=== PATIENT | male | born 1955 | race Caucasian/White ===

== ENCOUNTER 2023-06-11 13:23 | Inpatient (IN) | payer MEDICARE, MEDICAID ==
[~2023-06-11] VITALS: Ht 172.7 cm; Wt 42.3 kg
[~2023-06-11 13:23] MED LIST: ALBU2TAB11 PO; CITA10TA5 PO
[2023-06-11 14:23] LABS: Basophils # (auto) 0.1 10 ^3/uL (0-0.2); Basophils % (auto) 0.6 % (0.0-2.0); Eosinophils # (auto) 0.2 10 ^3/uL (0-0.8); Hemoglobin 15.5 g/dL (13.5-17.5); Lymphocytes # (auto) 0.9 10 ^3/uL (0.4-5.4); Lymphocytes % (auto) 10.1 % (10.0-50.0); Mean Corpuscular Hemoglobin 30.7 pg (28.0-32.0); Monocytes # (auto) 0.6 10 ^3/uL (0-1.3); Monocytes % (auto) 6.7 % (0.0-12.0); Neutrophils # (auto) 7.1 10 ^3/uL (1.6-8.6); Neutrophils % (auto) 80.6 % (37.0-80.0); Red Blood Cells 5.05 10^6/uL (4.5-5.90); Red Cell Distribution Width 14.7 % (11.8-14.3); White Blood Cell 8.8 10^3/uL (4.4-10.8)
[2023-06-11 14:47] LABS: Alanine Aminotransferase 13 U/L (7-40); Albumin 4.2 g/dL (3.2-4.8); Alkaline Phosphatase 82 U/L (46-116); Anion Gap 6 (5-15); Aspartate Aminotransferase 24 U/L (13-40); BUN/Creatinine Ratio 22.1 (10.0-20.0); Bilirubin, Total 0.6 mg/dL (0.2-1.0); Blood Urea Nitrogen 17 mg/dL (9-23); Carbon Dioxide 27 mmol/L (20-30); Chloride 101 mmol/L (98-107); Glucose 123 mg/dL (74-106); Potassium 5.2 mmol/L (3.5-5.1); Sodium 134 mmol/L (136-145); Total Protein 6.9 g/dL (5.7-8.2)
[2023-06-11] MEDS: SODIUM ZIRCONIUM CYCL 10 GM PAK PO ONE (15:30)
[2023-06-11] MEDS: FUROSEMIDE 20 MG/2 ML VIAL IV ONE (15:30)
[2023-06-11] MEDS: CALCIUM GLUC 1,000mg/50ml-NS 50 ML IV ONE (15:30)
[2023-06-11] MEDS: SODIUM BICARB 8.4% 50Meq/50ml SYR INJ IV ONE (15:30)
[2023-06-11] MEDS: ALBUTEROL SULF 2.5 MG/0.5ML(0.5%) NEB SOLN NEB ONE ×2 (15:48→17:48)
[2023-06-11] MEDS: methylPREDNISolone SOD SUCC 125 MG/2 ML VL IV ONE (17:00)
[2023-06-11] MEDS: InsuLIN REG 1unit/0.01ml Soln (100units/ml) SC SCH (17:00)
[2023-06-11] MEDS: SODIUM CHLORIDE 0.9% 1,000 ML IV SCH (17:00)
[2023-06-11] MEDS ORDERED: MORPHINE SULFATE INJ 2 MG/ml SYRG IV PRN (17:00)
[2023-06-11] MEDS ORDERED: ONDANSETRON HCL 4 MG/2 ML VIAL IV PRN (17:00)
[2023-06-11] MEDS ORDERED: DEXTROSE (50%) 50ML SYRG IV PRN (17:00)
[2023-06-11] MEDS: ACCU-CHEK COMFORT CURVE STRIP VI SCH (17:00)
[2023-06-11] MEDS ORDERED: DOCUSATE SOD 100 MG CAP PO PRN (17:00)
[2023-06-11 17:40] LABS: Potassium 4.7 mmol/L (3.5-5.1)
[2023-06-11 17:46] LABS: INR 1.1 (0.9-1.15); Prothrombin Time 11.5 sec (9.3-11.8)
[2023-06-11 17:47] LABS: Magnesium 1.9 mg/dL (1.6-2.6)
[2023-06-11 17:47] LABS: Base Excess -1.5 mmol/L (-2.0-2.0)
[2023-06-11 17:48] LABS: Phosphorus 4.2 mg/dL (2.4-5.1)
[2023-06-11] MEDS: IPRATROPIUM BROM 0.5 MG/2.5ML INH SOL NEB ONE (17:48)
[2023-06-11] MEDS: IPRATROPIUM BROM 0.5 MG/2.5ML INH SOL NEB SCH (18:00)
[2023-06-11] MEDS: ALBUTEROL SULF 2.5 MG/0.5ML(0.5%) NEB SOLN NEB SCH (18:00)
[2023-06-11] MEDS: methylPREDNISolone SOD SUCC 125 MG/2 ML VL IV SCH (22:00)
[2023-06-11 22:16] LABS: COVID19 ANTIGEN SOFIA FIA NEGATIVE (NEGATIVE)
[2023-06-11 22:38] LABS: Rapid Influenza A Negative (Negative); Rapid Influenza B Negative (Negative)
[2023-06-11 22:44] VITALS: O2SAT 94
[2023-06-11 22:45] VITALS: PULSE 93; RESP 22; O2SAT 93; O2SAT 94
[2023-06-11] MEDS: ENOXAPARIN SOD 40 MG/0.4 ML SYRINGE SC SCH (22:48)
[2023-06-11 22:49] VITALS: PULSE 97; RESP 22; O2SAT 98
[2023-06-12] VITALS (21 sets, daily range): BP systolic 106–123; BP diastolic 56–70; PULSE 77–111; RESP 15–18; TEMP 97.8–98.5; O2SAT 93–100
[2023-06-12 06:48] LABS: Basophils # (auto) 0 10 ^3/uL (0-0.2); Basophils % (auto) 0.1 % (0.0-2.0); Eosinophils # (auto) 0 10 ^3/uL (0-0.8); Eosinophils % (auto) 0.1 % (0.0-7.0); Hematocrit 42.8 % (41.0-53.0); Hemoglobin 14.3 g/dL (13.5-17.5); Lymphocytes # (auto) 0.4 10 ^3/uL (0.4-5.4); Lymphocytes % (auto) 7.3 % (10.0-50.0); Mean Corpuscular Hemoglobin 30.8 pg (28.0-32.0); Mean Corpuscular Hgb Conc. 33.4 g/dL (32.0-36.0); Mean Corpuscular Volume 92.1 fL (80.0-100.0); Monocytes # (auto) 0.1 10 ^3/uL (0-1.3); Monocytes % (auto) 1.3 % (0.0-12.0); Neutrophils # (auto) 5.1 10 ^3/uL (1.6-8.6); Neutrophils % (auto) 91.2 % (37.0-80.0); Red Blood Cells 4.65 10^6/uL (4.5-5.90); Red Cell Distribution Width 14.4 % (11.8-14.3); White Blood Cell 5.6 10^3/uL (4.4-10.8)
[2023-06-12 07:38] LABS: Alkaline Phosphatase 74 U/L (46-116); BUN/Creatinine Ratio 12.5 (10.0-20.0); Blood Urea Nitrogen 10 mg/dL (9-23); Chloride 101 mmol/L (98-107); Glucose 164 mg/dL (74-106); Potassium 4.5 mmol/L (3.5-5.1); Sodium 135 mmol/L (136-145)
[2023-06-12 07:39] LABS: Albumin 3.9 g/dL (3.2-4.8); Aspartate Aminotransferase 15 U/L (13-40); Bilirubin, Total 0.5 mg/dL (0.2-1.0); Total Protein 6.5 g/dL (5.7-8.2)
[2023-06-12 07:53] LABS: Alanine Aminotransferase < 9 U/L (7-40)
[2023-06-12 08:08] LABS: Anion Gap 11 (5-15); Carbon Dioxide 23 mmol/L (20-30)
[2023-06-12] MEDS: PANTOPRAZOLE 40 MG/10 ML VIAL INJ IV SCH (09:21)
[2023-06-12] MEDS: ACETAMINOPHEN 500 MG TAB PO PRN (21:12)
[2023-06-13] VITALS (19 sets, daily range): BP systolic 101–127; BP diastolic 55–62; PULSE 72–108; RESP 16–20; TEMP 97.6–98.3; O2SAT 95–100
[2023-06-13] MEDS: cefTRIAXone 1GM/50ML D5W 50 ML IV ONE (13:06)
[2023-06-13] MEDS: AZITHROMYCIN 500MG/ 250ML 250 ML IV ONE (13:54)
[2023-06-13 14:44] LABS: Urine Bacteria NONE SEEN /hpf (None Seen); Urine Blood Negative /uL (Negative); Urine Clarity Clear (Clear); Urine Color Yellow (Yellow); Urine Mucus FEW (None Seen); Urine Protein, UAD TRACE (Negative); Urine Specific Gravity 1.028 (1.001-1.035); Urine Urobilinogen Normal (Negative); Urine WBC <1 /hpf (0 - 3); Urine pH 5.5 (5.0-8.0)
[2023-06-13 17:46] LABS: COVID19 ANTIGEN SOFIA FIA NEGATIVE (NEGATIVE)
[2023-06-14] VITALS (14 sets, daily range): BP systolic 105–113; BP diastolic 49–63; PULSE 66–95; RESP 16–20; TEMP 97.3–98.2; O2SAT 95–100
[2023-06-14] MEDS ORDERED: ALBUAER3 IN (10:15)
[2023-06-14] MEDS ORDERED: PRED20TA2 PO (10:15)
[2023-06-14] MEDS ORDERED: AZIT500T66 PO (10:15)
[2023-06-14] MEDS ORDERED: IPRIH INH (10:15)
[2023-06-14] MEDS: cefTRIAXone 1GM/50ML D5W 50 ML IV SCH (10:39)
[2023-06-14] MEDS: PANTOPRAZOLE 40 MG TAB PO SCH (10:40)
[2023-06-14] MEDS: AZITHROMYCIN 500MG/ 250ML 250 ML IV SCH (11:28)
== END 2023-06-14 19:09 | disposition home health service (06) | DRG 177 ==
LOC: EDBD 13:23 → ER 13:23 → TELE-EAST 17:08 → TELE 17:08 → TELE-EAST 23:35
PROVIDERS: ADMIT Nurse Practitioner Family; ATTEND Family Medicine
DX: J15.69 Pneumonia due to other Gram-negative bacteria (principal); E43 Unspecified severe protein-calorie malnutrition; J96.01 Acute respiratory failure with hypoxia; Z68.1 Body mass index [BMI] 19.9 or less, adult; J43.9 Emphysema, unspecified; E11.65 Type 2 diabetes mellitus with hyperglycemia; Z20.822 Contact with and (suspected) exposure to COVID-19; R62.7 Adult failure to thrive; E87.5 Hyperkalemia; F17.200 Nicotine dependence, unspecified, uncomplicated; Z82.0 Family history of epilepsy and other diseases of the nervous system; Z83.3 Family history of diabetes mellitus; Z82.49 Family history of ischemic heart disease and other diseases of the circulatory system
CPT/HCPCS: 36415; 36600; 71045; 80053; 81001; 82805; 82962; 83036; 83735; 83880; 84100; 84132; 84484; 85025; 85379; 85610; 87070; 87205; 87426; 87804; 93306; 94640; 96374; 96375; 97110; 97116; 97163; 97530; 99291; C9113; G0378; J1815

== ENCOUNTER 2023-06-14 22:09 | Inpatient (IN) | payer MEDICARE, MEDICAID ==
[~2023-06-14] VITALS: Ht 175.3 cm; Wt 42.4 kg
[~2023-06-14 22:09] MED LIST changes: +ALBUAER3 IN; +AZIT500T66 PO; +IPRIH INH; +PRED20TA2 PO
[2023-06-15] VITALS (8 sets, daily range): BP systolic 114–130; BP diastolic 65–70; PULSE 62–78; RESP 16–20; TEMP 97.5–97.8; O2SAT 94–98
[2023-06-15] MEDS ORDERED: NITROGLYCERIN 0.4 MG SL TAB SL PRN (11:15)
[2023-06-15] MEDS ORDERED: MORPHINE SULFATE INJ 2 MG/ml SYRG IV PRN (11:15)
[2023-06-15 11:53] LABS: Basophils # (auto) 0 10 ^3/uL (0-0.2); Basophils % (auto) 0.6 % (0.0-2.0); Eosinophils # (auto) 0.2 10 ^3/uL (0-0.8); Eosinophils % (auto) 2.1 % (0.0-7.0); Hematocrit 43.1 % (41.0-53.0); Hemoglobin 14.4 g/dL (13.5-17.5); Lymphocytes # (auto) 1.2 10 ^3/uL (0.4-5.4); Lymphocytes % (auto) 16.6 % (10.0-50.0); Mean Corpuscular Hemoglobin 30.7 pg (28.0-32.0); Mean Corpuscular Hgb Conc. 33.5 g/dL (32.0-36.0); Mean Corpuscular Volume 91.6 fL (80.0-100.0); Monocytes # (auto) 0.8 10 ^3/uL (0-1.3); Monocytes % (auto) 10.5 % (0.0-12.0); Neutrophils # (auto) 5.2 10 ^3/uL (1.6-8.6); Neutrophils % (auto) 70.2 % (37.0-80.0); Nucleated Red Blood Cells % 0.1 %; Red Blood Cells 4.71 10^6/uL (4.5-5.90); Red Cell Distribution Width 14.5 % (11.8-14.3); White Blood Cell 7.5 10^3/uL (4.4-10.8)
[2023-06-15 12:12] LABS: Alanine Aminotransferase 13 U/L (7-40); Albumin 3.5 g/dL (3.2-4.8); Alkaline Phosphatase 53 U/L (46-116); Anion Gap 4 (5-15); Aspartate Aminotransferase 18 U/L (13-40); BUN/Creatinine Ratio 18.7 (10.0-20.0); Bilirubin, Total 0.6 mg/dL (0.2-1.0); Blood Alcohol < 3.0 mg/dL (<10); Blood Urea Nitrogen 14 mg/dL (9-23); Calcium 8.8 mg/dL (8.5-10.1); Carbon Dioxide 33 mmol/L (20-30); Chloride 97 mmol/L (98-107); Glucose 89 mg/dL (74-106); Potassium 4.5 mmol/L (3.5-5.1); Sodium 134 mmol/L (136-145); Total Protein 5.4 g/dL (5.7-8.2)
[2023-06-15 12:27] LABS: Magnesium 1.9 mg/dL (1.6-2.6)
[2023-06-15] MEDS: cefTRIAXone 1GM/50ML D5W 50 ML IV ONE (13:16)
[2023-06-15] MEDS: PANTOPRAZOLE 40 MG/10 ML VIAL INJ IV ONE (13:16)
[2023-06-15] MEDS: methylPREDNISolone SOD SUCC 40 MG/ML VL IV ONE (13:21)
[2023-06-15] MEDS: AZITHROMYCIN 500MG/ 250ML 250 ML IV ONE (15:28)
[2023-06-15 18:11] LABS: Urine Bacteria NONE SEEN /hpf (None Seen); Urine Blood Negative /uL (Negative); Urine Clarity Clear (Clear); Urine Color Colorless (Yellow); Urine Protein, UAD Negative (Negative); Urine Specific Gravity 1.008 (1.001-1.035); Urine Urobilinogen Normal (Negative); Urine WBC <1 /hpf (0 - 3)
[2023-06-15 18:27] LABS: Amphetamine Screen, Urine Neg (NEGATIVE); Barbiturate Scree,Urine Neg (NEGATIVE); Benzodiazephine Screen, Urine Neg (NEGATIVE); Cocaine Screen, Urine Neg (NEGATIVE); Opiate Scree,Urine Neg (NEGATIVE)
[2023-06-15 18:28] LABS: Cannabinoid Screen, Urine Pos (NEGATIVE); Phencyclidine Screen, Urine Neg (NEGATIVE)
[2023-06-15] MEDS ORDERED: IPRATROPIUM BROM 0.5 MG/2.5ML INH SOL NEB PRN (18:45)
[2023-06-15] MEDS ORDERED: ALBUTEROL SULF 2.5 MG/0.5ML(0.5%) NEB SOLN NEB PRN (18:45)
[2023-06-15 20:52] LABS: COVID19 ANTIGEN SOFIA FIA NEGATIVE (NEGATIVE)
[2023-06-15] MEDS: ENOXAPARIN SOD 40 MG/0.4 ML SYRINGE SC ONE (21:05)
[2023-06-16] VITALS (8 sets, daily range): BP systolic 102–121; BP diastolic 55–68; PULSE 63–75; RESP 17–20; TEMP 97.8–98.2; O2SAT 94–98
[2023-06-16 07:02] LABS: Basophils # (auto) 0 10 ^3/uL (0-0.2); Basophils % (auto) 0.1 % (0.0-2.0); Eosinophils # (auto) 0.1 10 ^3/uL (0-0.8); Eosinophils % (auto) 0.8 % (0.0-7.0); Hemoglobin 14.7 g/dL (13.5-17.5); Lymphocytes # (auto) 1.2 10 ^3/uL (0.4-5.4); Lymphocytes % (auto) 15.6 % (10.0-50.0); Mean Corpuscular Hemoglobin 30.6 pg (28.0-32.0); Mean Corpuscular Hgb Conc. 33.5 g/dL (32.0-36.0); Mean Corpuscular Volume 91.3 fL (80.0-100.0); Monocytes % (auto) 13.2 % (0.0-12.0); Neutrophils # (auto) 5.3 10 ^3/uL (1.6-8.6); Neutrophils % (auto) 70.3 % (37.0-80.0); Red Blood Cells 4.82 10^6/uL (4.5-5.90); Red Cell Distribution Width 14.2 % (11.8-14.3); White Blood Cell 7.5 10^3/uL (4.4-10.8)
[2023-06-16 07:09] LABS: Anion Gap 2 (5-15); Carbon Dioxide 33 mmol/L (20-30); Chloride 99 mmol/L (98-107); Potassium 4.4 mmol/L (3.5-5.1); Sodium 134 mmol/L (136-145)
[2023-06-16 07:11] LABS: Calcium 8.4 mg/dL (8.7-10.4)
[2023-06-16 07:15] LABS: Blood Urea Nitrogen 14 mg/dL (9-23); Glucose 85 mg/dL (74-106)
[2023-06-16 07:16] LABS: Magnesium 2.2 mg/dL (1.6-2.6)
[2023-06-16 07:17] LABS: BUN/Creatinine Ratio 21.5 (10.0-20.0)
[2023-06-16 08:56] LABS: Hepatitis B Surface Antigen Negative (Negative)
[2023-06-16 09:15] LABS: Hepatitis C Antibody Reactive (Negative)
[2023-06-16] MEDS: ENOXAPARIN SOD 40 MG/0.4 ML SYRINGE SC SCH (09:15)
[2023-06-16] MEDS: cefTRIAXone 1GM/50ML D5W 50 ML IV SCH (09:16)
[2023-06-16] MEDS: methylPREDNISolone SOD SUCC 40 MG/ML VL IV SCH ×2 (09:16→11:30)
[2023-06-16] MEDS: PANTOPRAZOLE 40 MG/10 ML VIAL INJ IV SCH (09:16)
[2023-06-16] MEDS: PANTOPRAZOLE 40 MG TAB PO SCH (10:00)
[2023-06-16] MEDS: AZITHROMYCIN 500MG/ 250ML 250 ML IV SCH (11:07)
[2023-06-17] VITALS (9 sets, daily range): BP systolic 99–117; BP diastolic 63–67; PULSE 60–75; RESP 15–18; TEMP 97.5–98; O2SAT 97–100
[2023-06-17] MEDS ORDERED: traMADol HCL 50 MG TAB PO PRN (10:00)
[2023-06-18] VITALS (7 sets, daily range): BP systolic 98–110; BP diastolic 59–62; PULSE 62–89; RESP 17–20; TEMP 97.3–98.1; O2SAT 96–100
== END 2023-06-18 14:35 | DRG 177 ==
LOC: EDUNIT# 22:09 → EDBD 22:09 → ER 22:09 → OVERFLOW 06-15 11:13 → WEST WING 06-15 15:58
PROVIDERS: ADMIT Internal Medicine Geriatric Medicine; ATTEND Family Medicine
PROC: 05HC33Z Insertion of Infusion Device into Left Basilic Vein, Percutaneous Approach (ICD-10-PCS; principal; 2023-06-16)
PROC: B54NZZA Ultrasonography of Left Upper Extremity Veins, Guidance (ICD-10-PCS; 2023-06-16)
DX: J15.69 Pneumonia due to other Gram-negative bacteria (principal); J96.21 Acute and chronic respiratory failure with hypoxia; J44.1 Chronic obstructive pulmonary disease with (acute) exacerbation; J44.0 Chronic obstructive pulmonary disease with (acute) lower respiratory infection; Z68.1 Body mass index [BMI] 19.9 or less, adult; J15.9 Unspecified bacterial pneumonia; R62.7 Adult failure to thrive; K27.9 Peptic ulcer, site unspecified, unspecified as acute or chronic, without hemorrhage or perforation; Z20.822 Contact with and (suspected) exposure to COVID-19; F17.210 Nicotine dependence, cigarettes, uncomplicated; E87.5 Hyperkalemia; Z60.8 Other problems related to social environment; B19.20 Unspecified viral hepatitis C without hepatic coma; Z83.3 Family history of diabetes mellitus; Z82.0 Family history of epilepsy and other diseases of the nervous system; Z99.81 Dependence on supplemental oxygen; Z82.49 Family history of ischemic heart disease and other diseases of the circulatory system; E11.65 Type 2 diabetes mellitus with hyperglycemia
CPT/HCPCS: 36415; 71045; 80048; 80053; 80307; 80320; 81001; 83735; 83880; 84484; 85025; 85379; 86803; 87081; 87340; 87426; 93005; C9113; G0378

== ENCOUNTER 2024-05-15 17:58 | Inpatient (IN) | payer MEDICARE, MEDICAID ==
[~2024-05-15] VITALS: Ht 170.2 cm; Wt 42.1 kg
[2024-05-15] MEDS: methylPREDNISolone SOD SUCC 125 MG/2 ML VL IV ONE (18:00)
--- NOTE | 2024-05-15 18:09 | ED.PDOC ---
SOB-HPI HPI Comments 68 y/o M brought in by ambulance with PMHX of COPD presents to the ED with CC of shortness of breath. Per EMS, patient has been experiencing shortness of breath [id number] with associated symptoms of chest pain, fever, and chills. Patient states, that he has been sick for over a month with no alleviation of symptoms. Patient was given 1 breathing treatment in route; patient currently uses supplemental oxygen at home 4L via [place]. Patient denies any social history. Patient denies sore throat, body-aches, loss of taste or smell, or N/V/D. No other symptoms or modifying factors at this time. Time Seen by MD: 18:00 Primary Care Provider: NONE Reviewed notes: Nurses Notes, Broach Grinder Notes, Medications, Allergies Information Source: Patient, Emergency Med Personnel Mode of Arrival: EMS Severity: Moderate Timing: Months Duration: Since onset Context: At Rest PE Risk Factors: None History of: COPD Prehospital treatment: Breathing Tx Modifying Factors: Nothing Associated Signs and Symptoms: Wheeze, Cough, Chest Pain Radiation: No Radiation If cough with SOB: Brown Past Medical History PAST MEDICAL HISTORY: COPD, DM, Liver Surgical History: Denies all surgeries Family History Family History: No family hx of DM, No family hx of Heart dejah Social History Smoker: Quit Less Than 1 Year, Cigarettes, Greater Than 1 Pack/Day Alcohol: Denies ETOH Use Drugs: Denies Drug Use Lives In: Home Constitutional: reports: chills, fever; denies: diaphoresis, fatigue, malaise, sweats, weakness, others EENTM: denies: blurred vision, double vision, ear bleeding, ear discharge, ear drainage, ear pain, ear ringing, eye pain, eye redness, hearing loss, mouth pain, mouth swelling, nasal discharge, nose bleeding, nose congestion, nose pain, photophobia, tearing, throat pain, throat swelling, voice changes, others Respiratory: reports: shortness of breath; denies: cough, hemoptysis, orthopnea, SOB at rest, SOB with excertion, stridor, wheezing, others Cardiovascular: denies: chest pain, dizzy spells, diaphoresis, Dyspnea on exertion, edema, irregular heart beat, left arm pain, lightheadedness, p alpitations, PND, syncope, others Gastrointestinal: denies: abdomen distended, abdominal pain, blood streaked bowels, constipated, diarrhea, dysphagia, difficulty swallowing, hematemesis, melena, nausea, poor appetite, poor fluid intake, rectal bleeding, rectal pain, vomiting, others Genitourinary: denies: burning, dysuria, flank pain, frequency, hematuria, incontinence, penile discharge, penile sore, pain, testicle pain, testicle swelling, urgency, others Neurological: denies: dizziness, fainting, headache, left sided numbness, left sided weakness, numbness, paresthesia, pre-existing deficit, right sided numbness, right sided weakness, seizure, speech problems, tingling, tremors, weakness, others Musculoskeletal: denies: back pain, gout, joint pain, joint swelling, muscle pain, muscle stiffness, neck pain, others Integumetry: denies: bruises, change in color, change in hair/nails, dryness, laceration, lesions, lumps, rash, wounds, others Allergic/Immunocompromised: denies: Difficulty Healing, Frequent Infections, Hives, Itching, others Hematologic/Lymphatic: denies: anemia, blood clots, easy bleeding, easy b ruising, swollen glands, others Endocrine: denies: excessive hunger, excessive sweating, excessive thirst, excessive urination, flushing, intolerance to cold, intolerance to heat, unexplained weight gain, unexplained weight loss, others Psychiatric: denies: anxiety, bipolar disorder, depression, hopeless, panic disorder, schizophrenia, sleepless, suicidal, others All Other Systems: Reviewed and Negative Physical Exam General Appearance: Moderate Distress HEENT: Normal ENT Inspection, Pharynx Normal, TMs Normal Neck: Full Range of Motion, Non-Tender, Normal, Normal Inspection Respiratory: Chest Non-Tender, Decreased Breath Sounds, No Accessory Muscle Use, Respiratory Distress, Wheezing Cardiovascular: No Edema, No JVD, No Murmur, No Gallop, Tachycardia Breast Exam: Deferred Gastrointestinal: No Organomegaly, Non Tender, No Pulsatile Mass, Normal Bowel Sounds, Soft Genitalia: Deferred Pelvic: Deferred Rectal: Deferred Extremities: No calf tenderness, Normal capillary refill, Normal inspection, Normal range of motion, Non-tender, No pedal edema Musculoskeletal : Apperance: Normal Neurologic: Alert, exercise science instructor II-XII nml as Tested, Motor Weakness, Normal Affect, Normal Mood, No Sensory Deficits Cerebellar Function: Normal Reflexes: Normal Skin: Dry, Normal Color, Warm Lymphatic: No Adenopathy Was a procedure done? Was a procedure done?: No Differential Dx Differential Diagnosis: Asthma, Bronchitis, COPD, Pneumonia, Respiratory Distress, Pharyngitis, URI X-Ray, Labs, Meds, VS Vital Signs Date Time Temp Pulse Resp B/P (MAP) Pulse Ox O2 Delivery O2 Flow Rate FiO2 05/15/24 18:25 20 97 Nasal Cannula* 3 32 05/15/24 18:00 98.6 96 18 138/63 (88) 100 05/15/24 18:00 Nasal Cannula* 4 36 05/15/24 18:00 Nasal Cannula* 3 32 05/15/24 17:58 99 Lab Test 05/15/24 18:26 Range/Units White Blood Count 16.1 H 4.4-10.8 10^3/uL Red Blood Count 3.91 L 4.5-5.90 10^6/uL Hemoglobin 11.7 L 13.5-17.5 g/dL Hematocrit 35.4 L 41.0-53.0 % Mean Corpuscular Volume 90.5 80.0-100.0 fL Mean Corpuscular Hemoglobin 29.9 28.0-32.0 pg Mean Corpuscular Hemoglobin Concent 33.0 32.0-36.0 g/dL Red Cell Distribution Width 15.0 H 11.8-14.3 % Platelet Count 451 H 140-450 10^3/uL Mean Platelet Volume 7.1 6.9-10.8 fL Neutrophils (%) (Auto) 84.7 H 37.0-80.0 % Lymphocytes (%) (Auto) 6.6 L 10.0-50.0 % Monocytes (%) (Auto) 7.3 0.0-12.0 % Eosinophils (%) (Auto) 1.1 0.0-7.0 % Basophils (%) (Auto) 0.3 0.0-2.0 % Neutrophils # (Auto) 13.6 H 1.6-8.6 10 ^3/uL Lymphocytes # (Auto) 1.1 0.4-5.4 10 ^3/uL Monocytes # (Auto) 1.2 0-1.3 10 ^3/uL Eosinophils # (Auto) 0.2 0-0.8 10 ^3/uL Basophils # (Auto) 0 0-0.2 10 ^3/uL Nucleated Red Blood Cells 0.2 % Sodium Level 137 136-145 mmol/L Potassium Level 4.6 3.5-5.1 mmol/L Chloride Level 102 98-107 mmol/L Carbon Dioxide Level 31 20-31 mmol/L Anion Gap 4 L 5-15 Blood Urea Nitrogen 13 9-23 mg/dL Creatinine 0.66 L 0.700-1.30 mg/dL Glomerular Filtration Rate Calc 103 >90 mL/min BUN/Creatinine Ratio 19.7 10.0-20.0 Serum Glucose 109 H 74-106 mg/dL Calcium Level 9.3 8.7-10.4 mg/dL B-Type Natriuretic Peptide 77.97 0-100 pg/mL Current Medications Medications (Trade) Dose Ordered Sig/Sheldon Route Start Time Stop Time Status Last Admin Ipratropium [place] (Atrovent Medneb) 1 mg ONCE [facility] 05/15/24 18:00 05/15/24 18:02 DC 05/15/24 18:25 Albuterol (Ventolin Medneb) 10 mg [facility]CE [facility]CE [facility] 05/15/24 18:00 05/15/24 18:02 DC 05/15/24 18:25 CXR: FINDINGS: Lines and Tubes: None Lungs: Hyperinflation. Bilateral perihilar peribronchial thickening with infiltrate in the right lower lobe Pleura: No effusion. No pneumothorax. Cardiomediastinal contours: Unremarkable Bones: No acute osseous abnormality. IMPRESSION: 1. Right lower lobe infiltrate. ATED BY: SRUTHI ELLSWORTH Jr., DO DICTATED DATE/TIME: 05/15/241855 SIGNED BY: SRUTHI ELLSWORTH Jr., SIGNED DATE/TIME: 05/15/241855 CC: The patient was given a breathing treatment of albuterol and Atrovent The CBC is within normal limits except for an elevated white blood cell count of 16.1 The chemistry panel is within normal limits The influenza a, influenza B and COVID test are pending The patient was being admitted at this time Images Reviewed?: Images reviewed and evaluated by me Time of 1ST Reevaluation: 18:30 Reevaluation 1ST: Unchanged Patient Education/Counseling: Diagnosis, Treatment, Prognosis Family Education/Counseling: No Family Present Departure 1 Departure Time of Disposition: 19:52 Impression: Primary Impression: Acute respiratory failure Qualified Codes: J96.01 - Acute respiratory failure with hypoxia Additional Impressions: COPD exacerbation Right lower lobe pneumonia Qualified Codes: J18.9 - Pneumonia, unspecified organism Disposition: ADMITTED INPATIENT Admit to: [facility] Condition: Fair Critical Care Note Critical Care Time?: Yes (45 min-critical care time only) Stability Stability form required: Yes Unstable for transfer: Telemetry monitoring (Telemetry monitoring required), ED Physician Assesment (Clinical assesment) Heart Score Heart Score: Heart Score Response (Comments) Value History N/A 0 EKG N/A 0 Age N/A 0 Risk Factors N/A 0 Troponin N/A 0 Total 0 I personally scribed for ROSALIND LOVE MD ([email or web address]) on 05/15/24 at 18:09. Electronically submitted by Flor Fitzpatrick ([email or web address]). I personally scribed for ROSALIND LOVE MD ([email or web address]) on 05/15/24 at 19:00. Electronically submitted by Flor Fitzpatrick ([email or web address]). ROSALIND LOVE MD May 15, 2024 18:09
[2024-05-15] MEDS: IPRATROPIUM BROM 0.5 MG/2.5ML INH SOL HHN ONE (18:25)
[2024-05-15] MEDS: ALBUTEROL SULF 2.5 MG/0.5ML(0.5%) NEB SOLN HHN ONE (18:25)
[2024-05-15 18:43] LABS: Basophils # (auto) 0 10 ^3/uL (0-0.2); Eosinophils # (auto) 0.2 10 ^3/uL (0-0.8)
[2024-05-15 18:45] LABS: Basophils % (auto) 0.3 % (0.0-2.0); Eosinophils % (auto) 1.1 % (0.0-7.0); Hematocrit 35.4 % (41.0-53.0); Hemoglobin 11.7 g/dL (13.5-17.5); Lymphocytes # (auto) 1.1 10 ^3/uL (0.4-5.4); Lymphocytes % (auto) 6.6 % (10.0-50.0); Mean Corpuscular Hemoglobin 29.9 pg (28.0-32.0); Mean Corpuscular Volume 90.5 fL (80.0-100.0); Monocytes # (auto) 1.2 10 ^3/uL (0-1.3); Monocytes % (auto) 7.3 % (0.0-12.0); Neutrophils # (auto) 13.6 10 ^3/uL (1.6-8.6); Neutrophils % (auto) 84.7 % (37.0-80.0); Nucleated Red Blood Cells % 0.2 %; Platelet Count (auto) 451 10^3/uL (140-450); Red Blood Cells 3.91 10^6/uL (4.5-5.90); White Blood Cell 16.1 10^3/uL (4.4-10.8)
[2024-05-15 18:51] LABS: Chloride 102 mmol/L (98-107); Potassium 4.6 mmol/L (3.5-5.1); Sodium 137 mmol/L (136-145)
[2024-05-15 18:52] LABS: Anion Gap 4 (5-15); Calcium 9.3 mg/dL (8.7-10.4)
[2024-05-15 18:57] LABS: BUN/Creatinine Ratio 19.7 (10.0-20.0); Blood Urea Nitrogen 13 mg/dL (9-23)
--- NOTE | 2024-05-15 18:58 | DVH ---
CHEST RADIOGRAPH Indication: sob Technique: Single frontal view of the chest was obtained Comparison: XY CHEST XRAY 1 VIEW on DOS: 06/15/23, XY CHEST XRAY 1 VIEW on DOS: 06/11/23 FINDINGS: Lines and Tubes: None Lungs: Hyperinflation. Bilateral perihilar peribronchial thickening with infiltrate in the right lowe r lobe Pleura: No effusion. No pneumothorax. Cardiomediastinal contours: Unremarkable Bones: No acute osseous abnormality. IMPRESSION: 1. Right lower lobe infiltrate.
[2024-05-15 19:19] LABS: Carbon Dioxide 31 mmol/L (20-31); Glucose 109 mg/dL (74-106)
[2024-05-15] MEDS: cefTRIAXone 1GM/50ML D5W 50 ML IV ONE (20:00)
[2024-05-16] VITALS (15 sets, daily range): BP systolic 114–138; BP diastolic 62–63; PULSE 58–102; RESP 18–24; TEMP 98.5–98.6; O2SAT 32–100
[2024-05-16 01:29] LABS: Rapid Influenza A Negative (Negative); Rapid Influenza B Negative (Negative)
[2024-05-16 01:30] LABS: COVID19 ANTIGEN SOFIA FIA NEGATIVE (NEGATIVE)
--- NOTE | 2024-05-16 02:21 | DVHHPRES ---
History of Present Illness Resident Creating Document: WAQAR NICKERSON RESDIENT History of Present Illness This is a 69-year-old male with past medical history of COPD (on 3 L of oxygen at home), prediabetes came from [place] pack with shortness of breaths. Per patient, he has shortness of breaths since 1 month which has worsened since 1 day. He also reports, productive cough, and mild chest pain. Due to severe shortness of breaths, the patient can not speak in full sentence. The patient use wheelchair at baseline due to weakness and advanced COPD. Patient denies, fever, nausea, vomiting, any recent sick contact, and dysuria. PMHx: COPD (on 3 L of oxygen at home), prediabetes PSHx: Left hip surgery, hernia repair Social history: Patient [place] park, ex-smoker, ex methamphetamine user, ex cocaine user, ex marijuana user, denies current drug use Home medication: Inhaler albuterol, ipratropium, Trelegy Allergic history: No known allergy Review of Systems Review of Systems General: patient denies fever, fatigue, weaknes, sweating, any recent changes in appetite and weight HEENT: No headaches, visiual changes, hearing loss, tinnitus, nasal congestion and discharge, and sore throat. Cardiovascular: Denies chest pain, palpitations, dyspnea on exertion, orthopnea, or claudication. Respiratory: Reports cough, shortness of breath, and mild chest pain Gastrointestinal: Denies nausea, vomiting, dysphagia, odynophagia, heartburn, abdominal pain, flatulence, bloating, diarrhea, constipation, change in stool, or blood in stool. Genitourinary: No dysuria, hematuria, discharge, frequency, urgency, nocturia, incontinence, and urinary retention. Endocrine: No heat or cold intolerance, polydipsia, polyuria, and polyphagia. Neurological: No dizziness, extremity weakness and numbness, tremors, gait disturbance, seizures, and memory impairment. Psychiatric: Denies depression, anxiety,or insomnia. Musculoskeletal: Denies neck pain, stiffness and swelling, back pain, muscle weakness, joint pain, stiffness, swelling, or limited range of motion. Skin: No rashes, itching, skin lesion, changes in hair, nail, skin texture and breast. Hematologic/Lymphatic: Denies easy bruising, bleeding tendencies, or lymph node enlargement. Allergies: Coded Allergies: NO KNOWN ALLERGIES (Unverified , 04/08/14) Medications Current Medications Medications Dose Ordered Sig/Sheldon Route Start Time Stop Time Status Last Admin Dose Admin Ipratropium [place] 0.5 mg Q4HWA [facility] 05/16/24 06:00 Albuterol 2.5 mg Q4HWA [facility] 05/16/24 06:00 Azithromycin 250 ml @ 125 mls/hr DAILY@2200 IV 05/16/24 02:00 Methylprednisolone Sodium Succinate 40 mg DAILY IV 05/16/24 10:00 Enoxaparin Sodium 40 mg DAILY@2200 SC 05/16/24 22:00 Exam Vital Signs Vital Signs Date Time Temp Pulse Resp B/P (MAP) Pulse Ox O2 Delivery O2 Flow Rate FiO2 05/15/24 18:25 20 97 Nasal Cannula* 3 32 05/15/24 18:00 98.6 96 138/63 (88) Exam General Appearance: Alert, Oriented X3, cachectic and in moderate respiratory distress that could not speak in full sentence HEENT: Atraumatic, PERRLA, EOMI, Mucous membrane moist/pink Respiratory: Bilateral decreased breath sounds and rhonchi Cardiovascular: Regular rate, Normal S1, Normal S2, No murmurs, no chest wall tenderness Abdominal: Normal bowel sounds, Soft, No tenderness, No hepatospenomegaly, No masses Extremities: No clubbing, No cyanosis, No edema, Normal pulses, No tenderness/swelling Skin: No rashes, No breakdown, No significant lesion Neuro: Normal gait, Normal speech, Strength at 5/5 X4 ext, Normal tone, Sensation intact, Cranial nerves 3-12 NL, Reflexes 2+ Psych/Mental Status: Mental status NL, Mood NL Labs/Xrays Labs Test 05/16/24 01:45 05/16/24 00:15 05/15/24 18:26 Range/Units Influenza Type A Antigen Negative Negative Influenza Type B Antigen Negative Negative SARS-CoV-2 Antigen (Rapid) Negative NEGATIVE White Blood Count 16.1 H 4.4-10.8 10^3/uL Red Blood Count 3.91 L 4.5-5.90 10^6/uL Hemoglobin 11.7 L 13.5-17.5 g/dL Hematocrit 35.4 L 41.0-53.0 % Mean Corpuscular Volume 90.5 80.0-100.0 fL Mean Corpuscular Hemoglobin 29.9 28.0-32.0 pg Mean Corpuscular Hemoglobin Concent 33.0 32.0-36.0 g/dL Red Cell Distribution Width 15.0 H 11.8-14.3 % Platelet Count 451 H 140-450 10^3/uL Mean Platelet Volume 7.1 6.9-10.8 fL Neutrophils (%) (Auto) 84.7 H 37.0-80.0 % Lymphocytes (%) (Auto) 6.6 L 10.0-50.0 % Monocytes (%) (Auto) 7.3 0.0-12.0 % Eosinophils (%) (Auto) 1.1 0.0-7.0 % Basophils (%) (Auto) 0.3 0.0-2.0 % Neutrophils # (Auto) 13.6 H 1.6-8.6 10 ^3/uL Lymphocytes # (Auto) 1.1 0.4-5.4 10 ^3/uL Monocytes # (Auto) 1.2 0-1.3 10 ^3/uL Eosinophils # (Auto) 0.2 0-0.8 10 ^3/uL Basophils # (Auto) 0 0-0.2 10 ^3/uL Nucleated Red Blood Cells 0.2 % Sodium Level 137 136-145 mmol/L Potassium Level 4.6 3.5-5.1 mmol/L Chloride Level 102 98-107 mmol/L Carbon Dioxide Level 31 20-31 mmol/L Anion Gap 4 L 5-15 Blood Urea Nitrogen 13 9-23 mg/dL Creatinine 0.66 L 0.700-1.30 mg/dL Glomerular Filtration Rate Calc 103 >90 mL/min BUN/Creatinine Ratio 19.7 10.0-20.0 Serum Glucose 109 H 74-106 mg/dL Calcium Level 9.3 8.7-10.4 mg/dL B-Type Natriuretic Peptide 77.97 0-100 pg/mL Assessment/Plan Assessment/Plan Acute on chronic hypoxic respiratory failure, likely due to COPD exacerbation Pneumonia, likely due to Gram-positive Gram-negative bacteria/viral Sepsis, likely due to pneumonia Chest x-ray shows bilateral hyperinflated lungs with right-sided lower zone infiltration Influenza type a, B and COVID-19 are negative Check MRSA nares and blood/sputum culture Empiric antibiotic azithromycin Breathing treatment q.4 hours Solu-Medrol 40 mg IV daily Oxygen through nasal cannula IV normal saline Prediabetes Hb A1c from 06/13/2023 is 5.9 Cachexia, likely due to advanced COPD BMI is 15.7 DIET: Cardiac diet DVT PROPHYLAXIS: Lovenox CODE STATUS: Goal of care discussed for more than 19 minutes, full code DISPOSITION: Med/surge Patient's status and paln discussed with the patient. Case discussed with Dr. Hackett Plan discussed with: Patient, Other (RN) My Orders Orders - WAQAR NICKERSON RESDINILSA Procedure Category Date Status Time Admit ADMIT 05/16/24 Transmitted 01:12 Oxygen By Nasal RT 05/16/24 Transmitted Cannula 01:12 Stat Ekg For Chest VIPUL 05/16/24 In Process Pain 01:12 Notify Of Changes VIPUL 05/16/24 In Process From Base 01:12 Lactic Acid W/ Reflex LAB 05/16/24 In Process Order 01:26 Mrsa Screen IMAN 05/16/24 Logged 01:26 Urinalysis LAB 05/16/24 Logged 01:26 Drug Screen LAB 05/16/24 Logged 01:26 Blood Culture IMAN 05/16/24 In Process 01:26 Respiratory Culture IMAN 05/16/24 Logged W/ Gs 01:26 Ipratropium Medneb PHA 05/16/24 In Process (Atrovent Medneb) 06:00 Albuterol Medneb PHA 05/16/24 In Process (Ventolin Medneb) 06:00 Azithromycin 500mg/ PHA 05/16/24 In Process 250ml (Zithromax 50 02:00 Methylprednisolone PHA 05/16/24 In Process Sod Succ (Solu Medrol 10:00 Enoxaparin Sodium PHA 05/16/24 In Process (Lovenox) 22:00 Cardiac DIET 05/16/24 Transmitted Diet-2gna,Lofat,Lochol Breakfast Date of Service: May 16, 2024 Billing Provider: ANGELO HACKETT MD Common Visit Codes: 07113-PROKGWI INP/OBS CARE (HIGH) Secondary Visit Codes: 38550-GPJJEOIR CARE PLAN 30 MINUTES WAQAR NICKERSON RESDIENT May 16, 2024 02:21 ANGELO HACKETT MD May 16, 2024 09:17
[2024-05-16] MEDS: ENOXAPARIN SOD 40 MG/0.4 ML SYRINGE SC ONE (02:36)
[2024-05-16] MEDS: AZITHROMYCIN 500MG/ 250ML 250 ML IV SCH (02:37)
[2024-05-16 02:52] LABS: Urine Bacteria None Seen /hpf (None Seen)
[2024-05-16] MEDS: ACETAMINOPHEN 325 MG TAB PO PRN (02:58)
[2024-05-16 03:06] LABS: Cannabinoid Screen, Urine Neg (NEGATIVE)
[2024-05-16 03:13] LABS: Amphetamine Screen, Urine Neg (NEGATIVE); Barbiturate Scree,Urine Neg (NEGATIVE); Benzodiazephine Screen, Urine Neg (NEGATIVE); Cocaine Screen, Urine Neg (NEGATIVE); Opiate Scree,Urine Neg (NEGATIVE); Phencyclidine Screen, Urine Neg (NEGATIVE)
[2024-05-16 03:18] LABS: Urine Blood Negative /uL (Negative); Urine Clarity Clear (Clear); Urine Color Light-Yellow (Yellow); Urine Protein, UAD Negative (Negative); Urine Specific Gravity 1.018 (1.001-1.035); Urine Squamous Epithelial Cell None Seen /hpf (<5); Urine Urobilinogen Normal (Negative); Urine WBC 1 /HPF (0-3); Urine pH 6.5 (5.0-9.0)
[2024-05-16 05:31] LABS: Hemoglobin 11.4 g/dL (13.5-17.5); Red Cell Distribution Width 14.9 % (11.8-14.3)
[2024-05-16 05:34] LABS: Hematocrit 34.1 % (41.0-53.0); Mean Corpuscular Hgb Conc. 33.5 g/dL (32.0-36.0); Mean Corpuscular Volume 89.4 fL (80.0-100.0); Platelet Count (auto) 443 10^3/uL (140-450); Red Blood Cells 3.82 10^6/uL (4.5-5.90); White Blood Cell 17.6 10^3/uL (4.4-10.8)
[2024-05-16] MEDS: IPRATROPIUM BROM 0.5 MG/2.5ML INH SOL NEB SCH (05:39)
[2024-05-16] MEDS: ALBUTEROL SULF 2.5 MG/0.5ML(0.5%) NEB SOLN NEB SCH (05:39)
[2024-05-16 05:45] LABS: Band Neutrophils % (manual) 0; Basophils % (manual) 0 (0.0-2.0); Blast Cells 0; Eosinophils % (manual) 0 (0-7); Metamyelocytes % 0; Myelocytes % 0; Promyelocytes % 0; Reactive Lymphocytes 0
[2024-05-16 05:48] LABS: Alanine Aminotransferase 14 U/L (7-40); Albumin 3.8 g/dL (3.2-4.8); Alkaline Phosphatase 103 U/L (46-116); Anion Gap 5 (5-15); Aspartate Aminotransferase 14 U/L (13-40); BUN/Creatinine Ratio 21.9 (10.0-20.0); Blood Urea Nitrogen 14 mg/dL (9-23); Calcium 9.1 mg/dL (8.7-10.4); Carbon Dioxide 30 mmol/L (20-31); Potassium 4.3 mmol/L (3.5-5.1)
[2024-05-16 05:49] LABS: Bilirubin, Total 0.4 mg/dL (0.2-1.0); Total Protein 6.5 g/dL (5.7-8.2)
[2024-05-16 05:50] LABS: Chloride 98 mmol/L (98-107); Glucose 220 mg/dL (74-106); Sodium 133 mmol/L (136-145)
[2024-05-16] MEDS: cefTRIAXone 1GM/50ML D5W 50 ML IV SCH (08:44)
[2024-05-16 08:47] LABS: Lymphocytes % (manual) 2 (10.0-50.0); Monocytes % (manual) 2 (0-12); Platelet Estimate Adequate
--- NOTE | 2024-05-16 08:55 | ECG ---
[facility] Test Date: 2024-05-15 Test Time: 17:58:50 Pat Name: NITISH TANNER Department: ER Room: 0287 Gender: M Rehab Assistant: SHAWN : [id number] Requested By: ROSALIND LOVE Order Number: [id number] Reading MD: Alton Soria Measurements Intervals [place] Rate: 99 P: 87 IL: 123 QRS: 80 QRSD: 71 T: 83 QT: 332 QTc: 426 Interpretive Statements Sinus rhythm Atrial premature complex Biatrial enlargement Nonspecific T abnrm, anterolateral leads Minimal ST elevation, inferior leads Electronically Signed On 05-17-2024 16:40:41 PST by Alton Soria Please click the below link to view image of tracing.
[2024-05-16] MEDS: methylPREDNISolone SOD SUCC 40 MG/ML VL IV SCH (09:49)
--- NOTE | 2024-05-16 17:14 | DVHPNRES ---
Progress Note Date Seen: May 16, 2024 Resident Creating Document: MEENU MONTOYA RESIDENT Medical Necessity Reason Pt with a Central, PICC or Fol: No Medical Necessity Reason COPD EXACERBATION Subjective Review of Systems This is a 69-year-old male with past medical history of COPD (on 3 L of oxygen at home), emphysema and prediabetes presented with shortness of breaths. Per patient, he has been experiencing this shortness of breaths for about one month now. He also reports, productive cough, and mild chest pain. Due to severe shortness of breaths, the patient can not speak in full sentence. The patient use wheelchair at baseline due to weakness. Patient denies, fever, nausea, vomiting, any recent sick contact, and dysuria. In the ED, vitals temperature 98.6, heart rate 99, respiration 2028 blood pressure 138/63 and was on 4L of oxygen. Blood work revealed WBC of 16.1 hemoglobin 11.7 platelet 451. Chest x- ray showed Right lower lobe infiltrate. Constitutional: malaise HEENT: Denies headache, ear pain, ear discharges, conjunctivitis, nasal discharge throat pain Cardiovascular: chest pain, palpitation; NO orthopnea, PND, or pedal edema Respiratory: Shortness of breath, cough, sputum production; NO hemoptysis, GI: Denies abdominal pain, nausea, vomiting, diarrhea, hematemesis, hematochezia, : Denies frequency, urgency, hematuria, Endocrine: Denies unintentional weight gain or weight loss, feeling of hot flashes, Dax: Denies easy bruising, bleeding disorders, epistaxis Musculoskeletal: Denies joint pains, muscle aches Psych: No evidence of depression, jere, suicidal ideation Objective vital signs Vital Sign Date Time Temp Pulse Resp B/P (MAP) Pulse Ox O2 Delivery O2 Flow Rate FiO2 05/16/24 15:00 92 35 132/57 (82) 97 05/16/24 13:40 97.8 05/16/24 13:37 Nasal Cannula 3.0 05/16/24 13:37 32 Total Intake and Output 05/15/24 05/15/24 05/16/24 15:00 23:00 07:00 Intake Total 50 ml 250 ml Balance 50 ml 250 ml medications Current Medications Medications Dose Ordered Sig/Sheldon Route Start Time Stop Time Status Last Admin Dose Admin Ipratropium [place] 0.5 mg Q4HWA [facility] 05/16/24 06:00 05/16/24 13:37 0.5 MG Albuterol 2.5 mg Q4HWA [facility] 05/16/24 06:00 05/16/24 13:37 2.5 MG Azithromycin 250 ml @ 125 mls/hr DAILY@2200 IV 05/16/24 02:00 05/16/24 02:37 125 MLS/HR Methylprednisolone Sodium Succinate 40 mg DAILY IV 05/16/24 10:00 05/16/24 09:49 40 MG Enoxaparin Sodium 40 mg DAILY@2200 SC 05/16/24 22:00 Acetaminophen 650 mg Q6HP PRN PO 05/16/24 03:00 05/16/24 12:32 650 MG Ceftriaxone Sodium 50 ml @ 100 mls/hr DAILY@09 IV 05/16/24 09:00 05/16/24 08:44 100 MLS/HR Examination General Appearance: Alert, Oriented X3, cachectic and in moderate respiratory distress HEENT: Atraumatic, PERRLA, EOMI, Mucous membrane moist/pink, temporally and muscle wasting Respiratory: Bilateral decreased breath sounds and rhonchi Cardiovascular: Regular rate, Normal S1, Normal S2, No murmurs, no chest wall tenderness Abdominal: Normal bowel sounds, Soft, No tenderness, No hepatospenomegaly, No masses Extremities: No clubbing, No cyanosis, No edema, Normal pulses, No tenderness/swelling Skin: No rashes, No breakdown, No significant lesion Neuro: Normal gait, Normal speech, Strength at 5/5 X4 ext, Normal tone, Sensation intact, Cranial nerves 3-12 NL, Reflexes 2+ Psych/Mental Status: Mental status NL, Mood NL laboratory and microbiology Laboratory Tests 05/16/24 04:50 Test 05/16/24 04:50 Range/Units Serum Glucose 220 #H 74-106 mg/dL Problem List/Assessment/Plan Problem List/Assessment/Plan Assessment Sepsis, likely due to pneumonia Pneumonia, likely due to Gram-positive Gram-negative bacteria/viral Acute on chronic hypoxic respiratory failure, likely due to COPD exacerbation Prediabetes, Hb A1c from 06/13/2023 is 5.9 Severe malnutrition with Cachexia, BMI is 15.7 Plan Check MRSA nares and blood/sputum culture Azithromycin Ceftriaxone Breathing treatment q.4 hours Solu-Medrol 40 mg IV daily Oxygen through nasal cannula IV normal saline social service consult for placement for patient DIET: Cardiac diet DVT PROPHYLAXIS: Lovenox CODE STATUS: Full Goal of care discussed for more than 35 minutes Case and plan discuss with Dr. Bethea Plan discussed with: Patient My Orders My Orders Orders - MEENU MONTOYA Procedure Category Date Status Time Ceftriaxone 1gm/50ml PHA 05/16/24 In Process D5w (Rocephin) 09:00 MEENU MONTOYA RESIDENT May 16, 2024 17:14
[2024-05-16] MEDS: ENOXAPARIN SOD 40 MG/0.4 ML SYRINGE SC SCH (22:00)
[2024-05-17] VITALS (13 sets, daily range): BP systolic 111–132; BP diastolic 56–70; PULSE 65–107; RESP 16–19; TEMP 97.2–98.2; O2SAT 93–100
[2024-05-17] MEDS ORDERED: FLUT1AER3 IN (00:02)
[2024-05-17] MEDS: FAMOTIDINE 20 MG TAB PO ONE (07:17)
[2024-05-17 10:25] LABS: Basophils # (auto) 0 10 ^3/uL (0-0.2); Basophils % (auto) 0.1 % (0.0-2.0); Eosinophils # (auto) 0 10 ^3/uL (0-0.8); Hematocrit 32.3 % (41.0-53.0); Hemoglobin 10.7 g/dL (13.5-17.5); Lymphocytes % (auto) 5.7 % (10.0-50.0); Mean Corpuscular Hemoglobin 29.7 pg (28.0-32.0); Mean Corpuscular Hgb Conc. 33.3 g/dL (32.0-36.0); Mean Corpuscular Volume 89.3 fL (80.0-100.0); Monocytes # (auto) 1.1 10 ^3/uL (0-1.3); Monocytes % (auto) 6.3 % (0.0-12.0); Neutrophils # (auto) 15.9 10 ^3/uL (1.6-8.6); Neutrophils % (auto) 87.9 % (37.0-80.0); Platelet Count (auto) 451 10^3/uL (140-450); Red Blood Cells 3.62 10^6/uL (4.5-5.90); Red Cell Distribution Width 15.1 % (11.8-14.3); White Blood Cell 18.1 10^3/uL (4.4-10.8)
[2024-05-17 10:31] LABS: Alanine Aminotransferase 14 U/L (7-40); Alkaline Phosphatase 83 U/L (46-116); Anion Gap 3 (5-15); BUN/Creatinine Ratio 30.8 (10.0-20.0); Blood Urea Nitrogen 20 mg/dL (9-23); Calcium 8.7 mg/dL (8.7-10.4); Carbon Dioxide 31 mmol/L (20-31); Chloride 103 mmol/L (98-107); Sodium 137 mmol/L (136-145)
[2024-05-17 10:32] LABS: Albumin 3.7 g/dL (3.2-4.8)
[2024-05-17 10:40] LABS: Aspartate Aminotransferase 12 U/L (13-40); Bilirubin, Total < 0.2 mg/dL (0.2-1.0); Glucose 113 mg/dL (74-106)
[2024-05-17] MEDS: PANTOPRAZOLE 40 MG/10 ML VIAL INJ IV SCH (10:55)
[2024-05-17] MEDS: Ensure HIGH Protein Chocolate 8oz Bottle PO SCH (11:52)
--- NOTE | 2024-05-17 20:22 | DVHPNRES ---
Progress Note Date Seen: May 17, 2024 Resident Creating Document: MEENU MONTOYA RESIDENT Medical Necessity Reason Pt with a Central, PICC or Fol: No Medical Necessity Reason COPD EXACERBATION SEPSIS Subjective Review of Systems This is a 69-year-old male with past medical history of COPD (on 3 L of oxygen at home), emphysema and prediabetes presented with shortness of breaths. Per patient, he has been experiencing this shortness of breaths for about one month now. He also reports, productive cough, and mild chest pain. Due to severe shortness of breaths, the patient can not speak in full sentence. The patient use wheelchair at baseline due to weakness. Patient denies, fever, nausea, vomiting, any recent sick contact, and dysuria. In the ED, vitals temperature 98.6, heart rate 99, respiration 2028 blood pressure 138/63 and was on 4L of oxygen. Blood work revealed WBC of 16.1 hemoglobin 11.7 platelet 451. Chest x- ray showed Right lower lobe infiltrate. PN: 05/17/2024 patient is seen and examined today. He was lying in bed not in any acute respiratory distress. Patient mentioned that he is doing better his breathing is improved he denied any new symptoms. He denies any fever nausea vomiting generalized body pain. Patient's vitals today show WBC of 18.1 which is likely due to the steroid he is on, Objective vital signs Vital Sign Date Time Temp Pulse Resp B/P (MAP) Pulse Ox O2 Delivery O2 Flow Rate FiO2 05/17/24 19:20 68 16 100 05/17/24 19:12 Nasal Cannula* 3 32 05/17/24 16:37 97.4 111/61 (78) 97.4 Total Intake and Output 05/16/24 05/16/24 05/17/24 15:00 23:00 07:00 Intake Total 50 ml 150 ml Output Total 300 ml Balance 50 ml -150 ml medications Current Medications Medications Dose Ordered Sig/Sheldon Route Start Time Stop Time Status Last Admin Dose Admin Ipratropium [place] 0.5 mg Q4HWA NEB 05/16/24 06:00 05/17/24 19:16 0.5 MG Albuterol 2.5 mg Q4HWA NEB 05/16/24 06:00 05/17/24 19:16 2.5 MG Azithromycin 250 ml @ 125 mls/hr DAILY@2200 IV 05/16/24 02:00 05/16/24 22:00 125 MLS/HR Methylprednisolone Sodium Succinate 40 mg DAILY IV 05/16/24 10:00 05/17/24 09:46 40 MG Enoxaparin Sodium 40 mg DAILY@2200 SC 05/16/24 22:00 05/16/24 22:00 40 MG Acetaminophen 650 mg Q6HP PRN PO 05/16/24 03:00 05/17/24 09:45 650 MG Ceftriaxone Sodium 50 ml @ 100 mls/hr DAILY@09 IV 05/16/24 09:00 05/17/24 08:22 100 MLS/HR Enteral Nutritional Formula 240 ml TIDWM PO 05/17/24 12:00 05/17/24 18:26 240 ML Pantoprazole Sodium 40 mg DAILY IV 05/17/24 10:00 05/17/24 10:55 40 MG Examination General Appearance: Alert, Oriented X3, cachectic mild respiratory distress HEENT: Atraumatic, PERRLA, EOMI, Mucous membrane moist/pink, temporally and muscle wasting Respiratory: wheezing improving Cardiovascular: Regular rate, Normal S1, Normal S2, No murmurs, no chest wall tenderness Abdominal: Normal bowel sounds, Soft, No tenderness, No hepatospenomegaly, No masses Extremities: No clubbing, No cyanosis, No edema, Normal pulses, No tenderness/swelling Skin: No rashes, No breakdown, No significant lesion Neuro: Normal gait, Normal speech, Strength at 5/5 X4 ext, Normal tone, Sensation intact, Cranial nerves 3-12 NL, Reflexes 2+ Psych/Mental Status: Mental status NL, Mood NL laboratory and microbiology Laboratory Tests 05/17/24 09:55 Test 05/17/24 09:55 Range/Units Serum Glucose 113 #H 74-106 mg/dL Microbiology Date/Time Source Procedure Growth Status 05/17/24 08:00 Nose MRSA Screen - Final Complete 05/16/24 01:45 Blood Blood Culture - Preliminary NO GROWTH AFTER 24 HOURS OF INCUBATION. Resulted Problem List/Assessment/Plan Problem List/Assessment/Plan Assessment Sepsis, likely due to pneumonia Pneumonia, likely due to Gram-positive Gram-negative bacteria/viral Acute on chronic hypoxic respiratory failure, likely due to COPD exacerbation COPD exacerbation Emphysema Prediabetes, Hb A1c from 06/13/2023 is 5.9 Severe malnutrition with Cachexia, BMI is 15.7 Hyponatremia Mild hyperglycemia Normocytic normochromic anemia Plan Check MRSA nares and blood/sputum culture Azithromycin Ceftriaxone Breathing treatment q.4 hours Solu-Medrol 40 mg IV daily Ensure bid Oxygen through nasal cannula on 3L at baseline DIET: Cardiac diet DVT PROPHYLAXIS: Heparin CODE STATUS: Full Goal of care discussed for more than 25 minutes Case and plan discuss with Dr. Bethea Plan discussed with: Patient My Orders My Orders Orders - MEENU MONTOYA Procedure Category Date Status Time Nutritional PHA 05/17/24 In Process Supplements (Ensure 12:00 Pantoprazole PHA 05/17/24 In Process (Protonix) 10:00 Complete Blood Count LAB 05/18/24 Verified 04:00 B-Type Natriuretic LAB 05/18/24 Verified Peptide 04:00 * Bundle Shaker CONS 05/17/24 Transmitted Consult Pt Request For Service PT 05/17/24 Logged 12:15 Date of Service: May 17, 2024 Billing Provider: TERENCE BETHEA MD Common Visit Codes: [id number] INP/OBS CARE(HIGH) MEENU MONTOYA May 17, 2024 20:22 TERENCE BETHEA MD May 23, 2024 20:32
[2024-05-18] VITALS (19 sets, daily range): BP systolic 102–120; BP diastolic 53–74; PULSE 80–105; RESP 17–20; TEMP 97.6–98.4; O2SAT 92–100
[2024-05-18 06:15] LABS: Basophils # (auto) 0 10 ^3/uL (0-0.2); Eosinophils # (auto) 0 10 ^3/uL (0-0.8); Eosinophils % (auto) 0.1 % (0.0-7.0); Lymphocytes # (auto) 1.2 10 ^3/uL (0.4-5.4)
[2024-05-18 06:19] LABS: Basophils % (auto) 0.1 % (0.0-2.0); Hematocrit 30.9 % (41.0-53.0); Hemoglobin 10.3 g/dL (13.5-17.5); Lymphocytes % (auto) 7.8 % (10.0-50.0); Mean Corpuscular Hemoglobin 29.9 pg (28.0-32.0); Mean Corpuscular Hgb Conc. 33.4 g/dL (32.0-36.0); Mean Corpuscular Volume 89.3 fL (80.0-100.0); Monocytes # (auto) 1.1 10 ^3/uL (0-1.3); Monocytes % (auto) 7.4 % (0.0-12.0); Neutrophils # (auto) 13.1 10 ^3/uL (1.6-8.6); Neutrophils % (auto) 84.6 % (37.0-80.0); Platelet Count (auto) 508 10^3/uL (140-450); Red Blood Cells 3.46 10^6/uL (4.5-5.90); White Blood Cell 15.4 10^3/uL (4.4-10.8)
[2024-05-18 06:28] LABS: Chloride 102 mmol/L (98-107); Potassium 4.4 mmol/L (3.5-5.1); Sodium 137 mmol/L (136-145)
[2024-05-18 06:29] LABS: Anion Gap 4 (5-15); Calcium 9.1 mg/dL (8.7-10.4); Carbon Dioxide 31 mmol/L (20-31)
[2024-05-18 06:34] LABS: BUN/Creatinine Ratio 36.9 (10.0-20.0); Glucose 98 mg/dL (74-106)
[2024-05-18 06:39] LABS: Blood Urea Nitrogen 24 mg/dL (9-23)
[2024-05-18] MEDS: Ensure HIGH Protein Chocolate 8oz Bottle PO SCH (08:00)
[2024-05-18] MEDS: AZITHROMYCIN 500MG/ 250ML 250 ML IV SCH (08:00)
[2024-05-18] MEDS ORDERED: cefTRIAXone 1GM/50ML D5W 50 ML IV SCH (10:00)
[2024-05-18] MEDS: levoFLOXacin 250 MG TAB PO ONE (13:20)
--- NOTE | 2024-05-18 17:46 | DVHPNRES ---
Progress Note Date Seen: May 18, 2024 Resident Creating Document: MEENU MONTOYA RESIDENT Medical Necessity Reason Pt with a Central, PICC or Fol: No Medical Necessity Reason pneumonia sepsis acute on chronic respirator failure Subjective Review of Systems This is a 69-year-old male with past medical history of COPD (on 3 L of oxygen at home), emphysema and prediabetes presented with shortness of breaths. Per patient, he has been experiencing this shortness of breaths for about one month now. He also reports, productive cough, and mild chest pain. Due to severe shortness of breaths, the patient can not speak in full sentence. The patient use wheelchair at baseline due to weakness. Patient denies, fever, nausea, vomiting, any recent sick contact, and dysuria. In the ED, vitals temperature 98.6, heart rate 99, respiration 2028 blood pressure 138/63 and was on 4L of oxygen. Blood work revealed WBC of 16.1 hemoglobin 11.7 platelet 451. Chest x- ray showed Right lower lobe infiltrate. PN: 05/17/2024 patient is seen and examined today. He was lying in bed not in any acute respiratory distress. Patient mentioned that he is doing better his breathing is improved he denied any new symptoms. He denies any fever nausea vomiting generalized body pain. Patient's vitals today show WBC of 18.1 which is likely due to the steroid he is on. PN: 05/18/2024: Patient is seen and examined at the bedside today. He denied any chest pain chest discomfort shortness of breaths. Patient said his breathing is much improved and believes his back to his baseline. Did not complain receiving his antibiotics yesterday because there was fluid infiltrated into his skin so patient opted for an oral medication which we give to him today. financial services officer is also following up with the patient for placement to [place]. His vitals are within normal limits. His WBCs also trending downward. Continue to monitor the patient and likely discharge him tomorrow. Objective vital signs Vital Sign Date Time Temp Pulse Resp B/P (MAP) Pulse Ox O2 Delivery O2 Flow Rate FiO2 05/18/24 17:06 97.9 87 20 112/60 (77) 97 97.9 05/18/24 09:53 Nasal Cannula* 3 32 Total Intake and Output 05/17/24 05/17/24 05/18/24 15:00 23:00 07:00 Intake Total 50 ml 944 ml 650 ml Output Total 1600 ml 780 ml Balance 50 ml -656 ml -130 ml medications Current Medications Medications Dose Ordered Sig/Sheldon Route Start Time Stop Time Status Last Admin Dose Admin Ipratropium [place] 0.5 mg Q4HWA [facility] 05/16/24 06:00 05/18/24 13:59 0.5 MG Albuterol 2.5 mg Q4HWA [facility] 05/16/24 06:00 05/18/24 13:59 2.5 MG Methylprednisolone Sodium Succinate 40 mg DAILY IV 05/16/24 10:00 05/18/24 10:55 40 MG Enoxaparin Sodium 40 mg DAILY@2200 SC 05/16/24 22:00 05/17/24 22:19 40 MG Acetaminophen 650 mg Q6HP PRN PO 05/16/24 03:00 05/18/24 10:54 650 MG Enteral Nutritional Formula 240 ml TIDWM PO 05/17/24 12:00 05/18/24 12:25 240 ML Pantoprazole Sodium 40 mg DAILY IV 05/17/24 10:00 05/18/24 10:55 40 MG Enteral Nutritional Formula 240 ml TIDWM PO 05/18/24 08:00 Levofloxacin 750 mg DAILY PO 05/19/24 10:00 Examination General Appearance: Alert, Oriented X3, cachectic HEENT: Atraumatic, PERRLA, EOMI, Mucous membrane moist/pink, temporally and muscle wasting Respiratory: improved air entry Cardiovascular: Regular rate, Normal S1, Normal S2, No murmurs, no chest wall tenderness Abdominal: Normal bowel sounds, Soft, No tenderness, No hepatospenomegaly, No masses Extremities: No clubbing, No cyanosis, No edema, Normal pulses, No tenderness/swelling Skin: No rashes, No breakdown, No significant lesion Neuro: Normal gait, Normal speech, Strength at 5/5 X4 ext, Normal tone, Sensation intact, Cranial nerves 3-12 NL, Reflexes 2+ Psych/Mental Status: Mental status NL, Mood NL laboratory and microbiology Laboratory Tests 05/18/24 05:25 Test 05/18/24 05:25 Range/Units Serum Glucose 98 74-106 mg/dL Microbiology Date/Time Source Procedure Growth Status 05/17/24 09:00 Sputum Gram Stain - Final Resulted 05/17/24 09:00 Sputum Respiratory Culture - Preliminary Resulted 05/17/24 08:00 Nose MRSA Screen - Final Complete 05/16/24 01:45 Blood Blood Culture - Preliminary NO GROWTH AFTER 48 HOURS OF INCUBATION. Resulted Problem List/Assessment/Plan Problem List/Assessment/Plan Assessment Sepsis, likely due to pneumonia Pneumonia, likely due to Gram-positive Gram-negative bacteria/viral Acute on chronic hypoxic respiratory failure, likely due to COPD exacerbation COPD exacerbation Emphysema Prediabetes, Hb A1c from 06/13/2023 is 5.9 Severe malnutrition with Cachexia, BMI is 15.7 --> 14.4 Hyponatremia Mild hyperglycemia Normocytic normochromic anemia Plan Check MRSA nares and blood/sputum culture-->pending Azithromycin--> Stop Ceftriaxone--> Stop levofloxacin 750 mg daily Breathing treatment q.4 hours Solu-Medrol 40 mg IV daily Ensure TID Oxygen through nasal cannula on 3L at baseline DIET: Cardiac diet DVT PROPHYLAXIS: levonox CODE STATUS: Full Goal of care discussed for more than 25 minutes Case and plan discuss with Dr. Bethea Plan discussed with: Patient My Orders My Orders Orders - MEENU MONTOYA Procedure Category Date Status Time Nutritional PHA 05/18/24 In Process Supplements (Ensure 08:00 Levofloxacin Tablet PHA 05/19/24 In Process (Levaquin Tablet) 10:00 Date of Service: May 18, 2024 Billing Provider: TERENCE BETHEA MD Common Visit Codes: [id number] INP/OBS CARE(HIGH) MEENU MONTOYA RESIDENT May 18, 2024 17:46 TERENCE BETHEA MD May 23, 2024 20:33
[2024-05-18] MEDS: MELATONIN 5 MG TAB PO ONE (23:43)
[2024-05-19] VITALS (21 sets, daily range): BP systolic 107–136; BP diastolic 54–74; PULSE 75–97; RESP 16–20; TEMP 97.7–98.8; O2SAT 92–100
[2024-05-19] MEDS: levoFLOXacin 250 MG TAB PO SCH (09:16)
[2024-05-19 10:36] LABS: Basophils # (auto) 0 10 ^3/uL (0-0.2); Eosinophils # (auto) 0 10 ^3/uL (0-0.8); Hematocrit 36.1 % (41.0-53.0); Hemoglobin 11.8 g/dL (13.5-17.5); Mean Corpuscular Hemoglobin 29.3 pg (28.0-32.0); Monocytes # (auto) 1.3 10 ^3/uL (0-1.3); White Blood Cell 11.3 10^3/uL (4.4-10.8)
[2024-05-19 10:38] LABS: Basophils % (auto) 0.1 % (0.0-2.0); Eosinophils % (auto) 0.3 % (0.0-7.0); Lymphocytes # (auto) 1.4 10 ^3/uL (0.4-5.4); Lymphocytes % (auto) 12.5 % (10.0-50.0); Mean Corpuscular Hgb Conc. 32.7 g/dL (32.0-36.0); Mean Corpuscular Volume 89.5 fL (80.0-100.0); Monocytes % (auto) 11.9 % (0.0-12.0); Neutrophils # (auto) 8.5 10 ^3/uL (1.6-8.6); Neutrophils % (auto) 75.2 % (37.0-80.0); Nucleated Red Blood Cells % 0.2 %; Platelet Count (auto) 535 10^3/uL (140-450); Red Blood Cells 4.03 10^6/uL (4.5-5.90); Red Cell Distribution Width 14.9 % (11.8-14.3)
[2024-05-19 10:56] LABS: Alanine Aminotransferase 29 U/L (7-40); Alkaline Phosphatase 93 U/L (46-116); Anion Gap 6 (5-15); Aspartate Aminotransferase 20 U/L (13-40); BUN/Creatinine Ratio 28.7 (10.0-20.0); Calcium 9.3 mg/dL (8.7-10.4); Carbon Dioxide 31 mmol/L (20-31); Glucose 105 mg/dL (74-106); Potassium 4.1 mmol/L (3.5-5.1)
[2024-05-19 10:57] LABS: Albumin 3.9 g/dL (3.2-4.8)
[2024-05-19 10:59] LABS: Total Protein 6.5 g/dL (5.7-8.2)
[2024-05-19 11:13] LABS: Bilirubin, Total 0.2 mg/dL (0.2-1.0); Blood Urea Nitrogen 25 mg/dL (9-23); Chloride 98 mmol/L (98-107); Sodium 135 mmol/L (136-145)
--- NOTE | 2024-05-19 11:59 | DVHDSRES ---
Discharge Summary Date of Admission Resident Creating Document: MEENU MONTOYA RESIDENT May 16, 2024 at 01:12 Date of Discharge: May 21, 2024 (Planned discharge was on 05/19/2024 but the patient had chest pain) Admitting Diagnosis SOB Labs/Diagnostic Data: PATIENT: NITISH TANNER GENEACCT: [id number] UNIT: [id number] : 1955 LOC: ER ROOM / BED: / AGE / SEX: 68 / M ADM STATUS: REG ER SERVICE 1800 ORDERING PHYSICIAN: ROSALIND LOVE MD PROCEDURE(s): CXRP - CHEST PORTABLE REASON: sob ORDER NUMBER(s): [id number], ACCESSION NUMBER(s): [id number] CHEST RADIOGRAPH Indication: sob Technique: Single frontal view of the chest was obtained Comparison: XY CHEST XRAY 1 VIEW on DOS: 06/15/23, XY CHEST XRAY 1 VIEW on DOS: 06/11/23 FINDINGS: Lines and Tubes: None Lungs: Hyperinflation. Bilateral perihilar peribronchial thickening with infiltrate in the right lower lobe Pleura: No effusion. No pneumothorax. Cardiomediastinal contours: Unremarkable Bones: No acute osseous abnormality. IMPRESSION: 1. Right lower lobe infiltrate. ATED BY: SRUTHI BRAN Jr., DO DICTATED DATE/TIME: 05/15/24 1856 Laboratory Results Test 05/19/24 09:41 05/16/24 04:50 05/16/24 02:46 05/16/24 01:45 White Blood Count 11.3 10^3/uL (4.4-10.8) Red Blood Count 4.03 10^6/uL (4.5-5.90) Hemoglobin 11.8 g/dL (13.5-17.5) Hematocrit 36.1 % (41.0-53.0) Mean Corpuscular Volume 89.5 fL (80.0-100.0) Mean Corpuscular Hemoglobin 29.3 pg (28.0-32.0) Mean Corpuscular Hemoglobin Concent 32.7 g/dL (32.0-36.0) Red Cell Distribution Width 14.9 % (11.8-14.3) Platelet Count 535 10^3/uL (140-450) Mean Platelet Volume 7.0 fL (6.9-10.8) Neutrophils (%) (Auto) 75.2 % (37.0-80.0) Lymphocytes (%) (Auto) 12.5 % (10.0-50.0) Monocytes (%) (Auto) 11.9 % (0.0-12.0) Eosinophils (%) (Auto) 0.3 % (0.0-7.0) Basophils (%) (Auto) 0.1 % (0.0-2.0) Neutrophils # (Auto) 8.5 10 ^3/uL (1.6-8.6) Lymphocytes # (Auto) 1.4 10 ^3/uL (0.4-5.4) Monocytes # (Auto) 1.3 10 ^3/uL (0-1.3) Eosinophils # (Auto) 0 10 ^3/uL (0-0.8) Basophils # (Auto) 0 10 ^3/uL (0-0.2) Nucleated Red Blood Cells 0.2 % Sodium Level 135 mmol/L (136-145) Potassium Level 4.1 mmol/L (3.5-5.1) Chloride Level 98 mmol/L (98-107) Carbon Dioxide Level 31 mmol/L (20-31) Anion Gap 6 (5-15) Blood Urea Nitrogen 25 mg/dL (9-23) Creatinine 0.87 mg/dL (0.700-1.30) Glomerular Filtration Rate Calc 94 mL/min (>90) BUN/Creatinine Ratio 28.7 (10.0-20.0) Serum Glucose 105 mg/dL (74-106) Calcium Level 9.3 mg/dL (8.7-10.4) Total Bilirubin 0.2 mg/dL (0.2-1.0) Aspartate Amino Transferase (AST) 20 U/L (13-40) Alanine Aminotransferase (ALT) 29 U/L (7-40) Alkaline Phosphatase 93 U/L (46-116) Total Protein 6.5 g/dL (5.7-8.2) Albumin 3.9 g/dL (3.2-4.8) Differential Total Cells Counted 100.0 (100) Neutrophils % (Manual) 96 (37.0-80.0) Band Neutrophils % (Manual) 0 Lymphocytes % (Manual) 2 (10.0-50.0) Monocytes % (Manual) 2 (0-12) Eosinophils % (Manual) 0 (0-7) Basophils % (Manual) 0 (0.0-2.0) Metamyelocytes % (manual) 0 Myelocytes % (Manual) 0 Promyelocytes % (Manual) 0 Blast Cells % (Manual) 0 Reactive Lymphocytes 0 Platelet Estimate Adequate Hemoglobin A1c 6.1 % A1C (<5.7) Urine Color Light-yellow (Yellow) Urine Clarity Clear (Clear) Urine pH 6.5 (5.0-9.0) Urine Specific [employer] 1.018 (1.001-1.035) Urine Protein Negative (Negative) Urine Ketones Negative (Negative) Urine Blood Negative /uL (Negative) Urine Nitrite Negative (Negative) Urine Bilirubin Negative (Negative) Urine Urobilinogen Normal mg/dL (Negative) Urine Leukocyte Esterase Negative /uL (Negative) Urine RBC <1 /hpf (0 - 3) Urine Microscopic WBC 1 /HPF (0-3) Urine Squamous Epithelial Cells None seen /hpf (<5) Urine Bacteria None seen /hpf (None Seen) Urine Glucose Normal mg/dL (Normal) Urine Opiates Screen Neg (NEGATIVE) Urine Fentanyl Screen Neg (NEGATIVE) Urine Barbiturates Screen Neg (NEGATIVE) Urine Phencyclidine Screen Neg (NEGATIVE) Urine Amphetamines Screen Neg (NEGATIVE) Urine Benzodiazepines Screen Neg (NEGATIVE) Urine Cocaine Screen Neg (NEGATIVE) Urine Cannabinoids Screen Neg (NEGATIVE) Lactic Acid Level 1.3 mmol/L (0.4-2.0) Test 05/16/24 00:15 05/15/24 18:26 Influenza Type A Antigen Negative (Negative) Influenza Type B Antigen Negative (Negative) SARS-CoV-2 Antigen (Rapid) Negative (NEGATIVE) B-Type Natriuretic Peptide 77.97 pg/mL (0-100) Other Laboratory Tests 05/19/24 09:41 Brief Hx & Hospital Course: Hospital Course This 69-year-old male with past medical history of COPD (on 3 L of oxygen at home), emphysema and prediabetes presented to the ED (on 05/16/2024) with shortness of breath without improvement even at a higher oxygen level. He also reported productive cough with yellowish sputum, and mild chest pain. Due to severe shortness of breaths, the patient can not speak in full sentence. Patient denied, fever, nausea, vomiting, any recent sick contact, and dysuria. In the ED, his initial vitals were temperature 98.6, HR 99,RR 20,28 blood pressure 138/63 and was on 4L of oxygen. Blood work revealed WBC of 16.1 hemoglobin 11.7 platelet 451. Chest x-ray showed Right lower lobe infiltrate. This was managed with antibiotics, Solu-Medrol, breathing treatment, adequate hydration and adequate nutrition. He has been on antibiotics IV transitioned then to oral for the past 3 days. Patient has been steadily improving and on examination to day, his air entry is much better and not in any obvious respiration. Patient is bad to his baseline oxygen level of 3 L. Overall he is doing well can be discharge to SNF today and he can follow up with the attending over there. The patient use wheelchair at baseline due to weakness,but he he is able to ambulate a bit. Examination on May 19, 2024 General Appearance: Alert, Oriented X3, cachectic HEENT: Atraumatic, PERRLA, EOMI, Mucous membrane moist/pink, temporal and muscle wasting Respiratory: improved air entry Cardiovascular: Regular rate, Normal S1, Normal S2, No murmurs, no chest wall tenderness Abdominal: Normal bowel sounds, Soft, No tenderness, No hepatosplenomegaly, No masses Extremities: No clubbing, No cyanosis, No edema, Normal pulses, No tenderness/swelling Skin: No rashes, No breakdown, No significant lesion Neuro: Normal gait, Normal speech, Strength at 5/5 X4 ext, Normal tone, Sensation intact, Cranial nerves 3-12 NL, Reflexes 2+ Psych/Mental Status: Mental status NL, Mood NL Diagnoses: Sepsis, likely due to pneumonia Pneumonia, likely due to Gram-positive Gram-negative bacteria/viral Acute on chronic hypoxic respiratory failure, likely due to COPD exacerbation COPD exacerbation Emphysema Prediabetes, Hb A1c from 06/13/2023 is 5.9 Severe malnutrition with Cachexia, BMI is 15.7 --> 14.4 Hyponatremia Mild hyperglycemia Normocytic normochromic anemia Discharge plan Discharge to SNF Continue antibiotics for the next 5 days Taper down steroid over 10 each day Continue nutrition rehabilitation Repeat daily CBC, BMP Follow up at the discharge clinic in 7 days 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 Lane; counseled on tobacco use cessation for 16 minutes. Goals of care discussed for 20 minutes; full code. Addendum: Ready to be transferred out to SNF this afternoon. however, at 3;00 patient started complaining of chest pain. EKG showed really no significant changes but we are currently pending troponin levels. Case was discussed with Dr. Lane and he recommend that we hold the discharge and ensure that patient is well before discharge. Currently the discharge is on is canceled. Condition at Discharge: Stable Final Diagnosis/Problems List Sepsis, likely due to pneumonia Pneumonia, likely due to Gram-positive Gram-negative bacteria/viral Acute on chronic hypoxic respiratory failure, likely due to COPD exacerbation COPD exacerbation Emphysema Prediabetes, Hb A1c from 06/13/2023 is 5.9 Severe malnutrition with Cachexia, BMI is 15.7 --> 14.4 Hyponatremia Mild hyperglycemia Normocytic normochromic anemia Discharge Disposition: [facility] Facility Discharge Instruct/Medications Diet: Regular Diet comment: Ensure Activity: No Restrictions, As Tolerated Follow Up/Referral: Discharge clinic 7 days Medications: see med records Discharge Statement: "Patient was advised to return to the ER or call 911 if any headaches, dizziness, shortness of breath, chest pain, abdominal pain, bleeding, fevers, or worsening of medical condition. Patient was counseled about treatment plan, medications, possible side effects, patientverbalized understanding. All questions were answered to the best of my ability. This discharge took greater then 30 minutes in planning, reviewing documentation, counseling the patient, and discussing with other team members." ASSESSMENT ASSESSMENT Assessment Sepsis, likely due to pneumonia Pneumonia, likely due to Gram-positive Gram-negative bacteria/viral Acute on chronic hypoxic respiratory failure, likely due to COPD exacerbation COPD exacerbation Emphysema Prediabetes, Hb A1c from 06/13/2023 is 5.9 Severe malnutrition with Cachexia, BMI is 15.7 --> 14.4 Hyponatremia Mild hyperglycemia Normocytic normochromic anemia Addendum Addendum Addendum I was physically present for the garcia portions of the service provided to patient by THE RESIDENT. I have reviewed the documentation, discussed the case with resident and agree with the resident's documentation except as noted. Also the patient's clinical case was discussed with the patient's nurse. This medical document was created using an electronic medical record system with computerized dictation system. Although this document has been carefully reviewed, there might still be some phonetic and typographical errors. These areas are purely typographical due to imperfections of the software programs, and do not reflect any compromise in the patient's medical care. Late signature. Date of Service: May 19, 2024 Billing Provider: GIANCARLO LANE MD Common Visit Codes: [id number] INP/OBS CARE(HIGH) Secondary Visit Codes: [id number] CHNG SMOKING >10MIN (16 minutes), [id number]- ADVANCED CARE PLAN 30 MINUTES (20 minutes) MEENU MONTOYA RESIDENT May 19, 2024 11:[address] MD May 20, 2024 21:27
--- NOTE | 2024-05-19 17:29 | DVHINCON2 ---
Date Seen: May 19, 2024 Referring Physician MD [place] resident Reason for Consultation Chest pain History of Present Illness This is a 69-year-old male patient who presents to emergency room with chief complaint of worsening shortness of breath. He comes to the emergency room for further evaluation. Cardiology has now been consulted for new onset chest pain. The patient reports the chest pain began approximately 2pm this afternoon. He describes it as provoked with deep inhalation, constant, stabbing in nature, right-sided and nonradiating. Chest pain is reproducible upon examination. A twelve lead electrocardiogram was obtained when patient mentioned chest pain and revealed normal sinus rhythm with baseline wander (no significant changes from initial twelve lead electrocardiogram done on 05/15/24). Initial troponin level is negative. 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 Past Medical History Past medical history reviewed. No other significant than mentioned above. Past Surgical History Hernia repair Left hip surgery Family History: Diabetes mellitus G8 MOTHER FH: Parkinson's disease Family history: Cardiovascular disease Family history: Diabetes mellitus G8 MOTHER Family History Home medications reviewed. 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 Current Medications Current Medications Medications (Trade) Dose Ordered Sig/Sheldon Route PRN Reason Start Time Stop Time Status Last Admin Levofloxacin (Levaquin Tablet) 750 mg DAILY PO 05/19/24 10:00 05/19/24 09:16 Review of Systems Constitutional: No symptom reported Ears, Nose, & Throat: No symptom reported Eyes: No symptom reported Neurological: No symptoms reported Pulmonary/Respiratory: Shortness of breath Cardiovascular: Chest pain Gastrointestinal: No symptom reported Genitourinary: No symptom reported Musculoskeletal: No symptom reported Skin: No symptom reported Psychiatric: No symptom reported Endocrine: No symptom reported Hematologic/Lymphatic: No symptom reported Vital Signs Vital Signs Date Time Temp Pulse Resp B/P (MAP) Pulse Ox O2 Delivery O2 Flow Rate FiO2 05/19/24 16:10 98.0 82 16 113/66 (82) 97 98.0 05/19/24 10:00 Nasal Cannula* 3 32 Physical Exam General Appearance: Cooperative. Thin, frail, cachectic Pulmonary/Respiratory: Clear, bilateral breaths sounds. Cardiovascular/Chest: Regular rate and rhythm. Peripheral Pulses: 2+ Radial (R). 2+ Radial (L). 2+ Pedal (R). 2+ Pedal (L) Abdominal Exam: Normal bowel sounds. Ankle Exam: Negative ankle edema Lower extremities: Negative lower extremity edema Neuro/Mental Status: A/OX4, coherent. Thoughts/Psych: Normal thought pattern. Appropriate mood and affect. Good judgment and insight. Appearance: No acute distress. Skin Exam: Normal inspection. Normal color. Warm and dry. Labs/Diagnostic Data Labs Test 05/19/24 09:41 05/16/24 04:50 05/16/24 02:46 05/16/24 01:45 Range/Units White Blood Count 11.3 #H 4.4-10.8 10^3/uL Red Blood Count 4.03 L 4.5-5.90 10^6/uL Hemoglobin 11.8 L 13.5-17.5 g/dL Hematocrit 36.1 #L 41.0-53.0 % Mean Corpuscular Volume 89.5 80.0-100.0 fL Mean Corpuscular Hemoglobin 29.3 28.0-32.0 pg Mean Corpuscular Hemoglobin Concent 32.7 32.0-36.0 g/dL Red Cell Distribution Width 14.9 H 11.8-14.3 % Platelet Count 535 H 140-450 10^3/uL Mean Platelet Volume 7.0 6.9-10.8 fL Neutrophils (%) (Auto) 75.2 37.0-80.0 % Lymphocytes (%) (Auto) 12.5 10.0-50.0 % Monocytes (%) (Auto) 11.9 0.0-12.0 % Eosinophils (%) (Auto) 0.3 0.0-7.0 % Basophils (%) (Auto) 0.1 0.0-2.0 % Neutrophils # (Auto) 8.5 1.6-8.6 10 ^3/uL Lymphocytes # (Auto) 1.4 0.4-5.4 10 ^3/uL Monocytes # (Auto) 1.3 0-1.3 10 ^3/uL Eosinophils # (Auto) 0 0-0.8 10 ^3/uL Basophils # (Auto) 0 0-0.2 10 ^3/uL Nucleated Red Blood Cells 0.2 % Sodium Level 135 L 136-145 mmol/L Potassium Level 4.1 3.5-5.1 mmol/L Chloride Level 98 98-107 mmol/L Carbon Dioxide Level 31 20-31 mmol/L Anion Gap 6 5-15 Blood Urea Nitrogen 25 H 9-23 mg/dL Creatinine 0.87 0.700-1.30 mg/dL Glomerular Filtration Rate Calc 94 >90 mL/min BUN/Creatinine Ratio 28.7 H 10.0-20.0 Serum Glucose 105 74-106 mg/dL Calcium Level 9.3 8.7-10.4 mg/dL Total Bilirubin 0.2 0.2-1.0 mg/dL Aspartate Amino Transferase (AST) 20 13-40 U/L Alanine Aminotransferase (ALT) 29 7-40 U/L Alkaline Phosphatase 93 46-116 U/L Troponin I High Sensitivity 4 </=54 ng/L Total Protein 6.5 5.7-8.2 g/dL Albumin 3.9 3.2-4.8 g/dL Differential Total Cells Counted 100.0 100 Neutrophils % (Manual) 96 H 37.0-80.0 Band Neutrophils % (Manual) 0 Lymphocytes % (Manual) 2 L 10.0-50.0 Monocytes % (Manual) 2 0-12 Eosinophils % (Manual) 0 0-7 Basophils % (Manual) 0 0.0-2.0 Metamyelocytes % (manual) 0 Myelocytes % (Manual) 0 Promyelocytes % (Manual) 0 Blast Cells % (Manual) 0 Reactive Lymphocytes 0 Platelet Estimate Adequate Hemoglobin A1c 6.1 H <5.7 % A1C Urine Color Light-yellow Yellow Urine Clarity Clear Clear Urine pH 6.5 5.0-9.0 Urine Specific [place] 1.018 1.001-1.035 Urine Protein Negative Negative Urine Ketones Negative Negative Urine Blood Negative Negative /uL Urine Nitrite Negative Negative Urine Bilirubin Negative Negative Urine Urobilinogen Normal Negative mg/dL Urine Leukocyte Esterase Negative Negative /uL Urine RBC <1 0 - 3 /hpf Urine Microscopic WBC 1 0-3 /HPF Urine Squamous Epithelial Cells None seen <5 /hpf Urine Bacteria None seen None Seen /hpf Urine Glucose Normal Normal mg/dL Urine Opiates Screen Neg NEGATIVE Urine Fentanyl Screen Neg NEGATIVE Urine Barbiturates Screen Neg NEGATIVE Urine Phencyclidine Screen Neg NEGATIVE Urine Amphetamines Screen Neg NEGATIVE Urine Benzodiazepines Screen Neg NEGATIVE Urine Cocaine Screen Neg NEGATIVE Urine Cannabinoids Screen Neg NEGATIVE Lactic Acid Level 1.3 0.4-2.0 mmol/L Test 05/16/24 00:15 05/15/24 18:26 Range/Units Influenza Type A Antigen Negative Negative Influenza Type B Antigen Negative Negative SARS-CoV-2 Antigen (Rapid) Negative NEGATIVE B-Type Natriuretic Peptide 77.97 0-100 pg/mL Microbiology Date/Time Source Procedure Growth Status 05/17/24 09:00 Sputum Gram Stain - Final Resulted 05/17/24 09:00 Sputum Respiratory Culture - Preliminary Resulted 05/17/24 08:00 Nose MRSA Screen - Final Complete 05/16/24 01:45 Blood Blood Culture - Preliminary NO GROWTH AFTER 72 HOURS OF INCUBATION. Resulted Assessment Chest pain, likely noncardiac Rule out structural heart disease Sepsis Pneumonia COPD with home oxygen dependence Emphysema Tobacco use Cachexia Plan/Recommendation We will continue with the following plan/recommendations (Dr. Augustine): We will proceed with obtaining a transthoracic echocardiogram to evaluate cardiac function and assess for wall motion abnormalities. A twelve lead electrocardiogram was obtained when patient mentioned chest pain and revealed normal sinus rhythm with baseline wander (no significant changes from initial twelve lead electrocardiogram done on 05/15/24). Given the patient's clinical presentation, unremarkable twelve lead electrocardiogram, and negative troponin level, doubt ACS. We will order a repeat troponin level. Continue with close cardiac surveillance in the meantime. Thank you for allowing us to care for this patient. Please call with any questions or concerns. Critical care time spent: 40 minutes This medical document was created using an electronic medical record system with voice recognition software and computerized dictation system. Although this document has been carefully reviewed, there might still be some phonetic and typographical errors. Occasional wrong-word or ``sound-alike substitutions may have occurred due to the inherent limitations of voice recognition software. These areas are purely typographical due to imperfections of the software programs and do not reflect any compromise in the patient's medical care. Please read the chart carefully and recognize, using context, where these substitutions have occurred. Plan discussed with: Patient NYHA Physical activity limitations: NA Date of Service: May 19, 2024 Billing Provider: GENOVEVA AUGUSTINE MD Cardiology Common Codes: [id number] INP/OBS CARE (High) Cardiology Consultation Codes: [id number] CONSULT <45MIN NANY WIGGINS May 19, 2024 17:29
[2024-05-19] MEDS: MORPHINE SULFATE INJ 2 MG/ml SYRG IV ONE (20:30)
[2024-05-20] VITALS (17 sets, daily range): BP systolic 104–129; BP diastolic 60–66; PULSE 80–102; RESP 16–20; TEMP 97.4–98.2; O2SAT 94–100
--- NOTE | 2024-05-20 10:33 | DVHPN2 ---
Subjective Patient was seen and evaluated in the morning; continues to complain of chest pressure/pain; decreased shortness of breath Reviewed: Care Plan, H&P, Labs, Medications, Previous Orders, Radiology, Other (Consultation) Changes from previous H/P or p: No Changes Objective Vitals Vital Signs Date Time Temp Pulse Resp B/P (MAP) Pulse Ox O2 Delivery O2 Flow Rate FiO2 05/20/24 10:08 89 20 100 05/20/24 09:58 Nasal Cannula* 3 32 05/20/24 05:00 97.9 104/62 (76) 97.9 Intake/Output Intake and Output 05/20/24 07:00 Intake Total 1556 ml Output Total 1755 ml Balance -199 ml Intake Oral 1556 ml Output Urine Total 1755 ml # Bowel Movements 1 General Appearance: Alert, Oriented X3, Cooperative, No acute distress, Other (Cachectic) HEENT: Atraumatic Lungs: Other (Decreased air entry bilaterally with scattered wheezing) Cardiovascular: Regular rate, Normal S1 Abdomen: Normal bowel sounds, Soft, No tenderness Neuro: Normal speech, Cranial nerves 3-12 NL Psych/Mental Status: Mental status NL, Mood NL Medications Current Medications Medications Dose Ordered Sig/Sheldon Route Start Time Stop Time Status Last Admin Dose Admin Ipratropium [place] 0.5 mg Q4HWA [facility] 05/16/24 06:00 05/20/24 09:57 0.5 MG Albuterol 2.5 mg Q4HWA [facility] 05/16/24 06:00 05/20/24 09:57 2.5 MG Methylprednisolone Sodium Succinate 40 mg DAILY IV 05/16/24 10:00 05/20/24 09:22 40 MG Enoxaparin Sodium 40 mg DAILY@2200 SC 05/16/24 22:00 05/19/24 21:07 40 MG Acetaminophen 650 mg Q6HP PRN PO 05/16/24 03:00 05/19/24 17:15 650 MG Enteral Nutritional Formula 240 ml TIDWM PO 05/17/24 12:00 05/20/24 08:00 240 ML Pantoprazole Sodium 40 mg DAILY IV 05/17/24 10:00 05/20/24 09:22 40 MG Enteral Nutritional Formula 240 ml TIDWM PO 05/18/24 08:00 05/20/24 08:00 240 ML Levofloxacin 750 mg DAILY PO 05/19/24 10:00 05/20/24 09:22 750 MG Laboratory Results Laboratory Tests 05/19/24 09:41 Urinalysis Test 05/16/24 02:46 Urine Color Light-yellow (Yellow) Urine Clarity Clear (Clear) Urine pH 6.5 (5.0-9.0) Urine Specific [place] 1.018 (1.001-1.035) Urine Protein Negative (Negative) Urine Ketones Negative (Negative) Urine Blood Negative /uL (Negative) Urine Nitrite Negative (Negative) Urine Bilirubin Negative (Negative) Urine Urobilinogen Normal mg/dL (Negative) Urine Leukocyte Esterase Negative /uL (Negative) Urine RBC <1 /hpf (0 - 3) Urine Microscopic WBC 1 /HPF (0-3) Urine Squamous Epithelial Cells None seen /hpf (<5) Urine Bacteria None seen /hpf (None Seen) Urine Glucose Normal mg/dL (Normal) Microbiology Microbiology Date/Time Source Procedure Growth Status 05/17/24 09:00 Sputum Gram Stain - Final Resulted 05/17/24 09:00 Sputum Respiratory Culture - Preliminary Resulted 05/17/24 08:00 Nose MRSA Screen - Final Complete 05/16/24 01:45 Blood Blood Culture - Preliminary NO GROWTH AFTER 72 HOURS OF INCUBATION. Resulted Labs and/or images reviewed: Labs reviewed by me, Image(s) reviewed by me Assessment/Plan Assessment/Plan Covering Dr. Bethea: #Chest pain/pressure #Sepsis with leukocytosis and thrombocytosis, due to pneumonia #Community-acquired pneumonia; Gram-positive versus Gram-negative #Acute on chronic hypoxic respiratory failure, due to COPD exacerbation #COPD exacerbation #Severe protein malnutrition #Physical deconditioning #Normocytic normochromic anemia; most likely inflammatory #Tobacco use disorder Continue oxygen therapy as needed Continue IV antibiotics Encouraged oral intake [employer] is following Physical therapy as inpatient; SNF placement Continue steroids and nebulizers Echocardiogram is pending Cardiology is following Counseled on tobacco use cessation No signs/symptoms of active bleeding Reviewed cultures Reviewed the available imaging studies Reviewed EKG and blood work Continue monitoring Pending echocardiogram and cardiology clearance to be discharged to SNF. Late Entry. This medical document was created using an electronic medical record system with computerized dictation system. Although this document has been carefully reviewed, there might still be some phonetic and typographical errors. These areas are purely typographical due to imperfections of the software programs, and do not reflect any compromise in the patient's medical care. Plan discussed with: Patient, Other (Nurse) Date of Service: May 20, 2024 Billing Provider: GIANCARLO LANE MD Common Visit Codes: [id number] INP/OBS CARE(HIGH) GIANCARLO LANE MD May 20, 2024 10:33
--- NOTE | 2024-05-20 13:31 | DVHSR ---
APPROVED REPORT EXAM: Two-dimensional and M-mode echocardiogram with Doppler and color Doppler. Blood Pressure: 104/62 mmHg INDICATION Evaluate Cardiac Function RISK FACTORS Height: 5' 7", Weight: 91 DIMENSIONS LVDd4.0 (3.8-5.7cm)LA (2D)2.9 (1.9-4.0cm)Aortic Root4.0 (2.0-3.7cm) LVDs2.9 (2.5-4.0cm)LA (MM) (1.9-4.0cm)Aortic Cusp Exc1.8 (1.5-2.0cm) EF (%) 55.0 (55-70%)Rt. Atrium3.4 (1.9-4.0cm)Asc. Aorta cm IVSd0.7 (0.7-1.1cm)RV (D) (1.8-2.4cm) PWd0.7 (0.7-1.1cm) Mitral Valve MitralMitral Stenosis E wave0.50m/sMV Mean GR.mmHg A wave0.60m/sMV Peak GR.mmHg E/A ratio0.82D MVAcm2 Aortic Valve Aortic ValveAortic Stenosis V10.90m/Salty Mean GR.3mmHg V21.20m/Salty Peak GR.6mmHg LVOT Diameter2.4 (1.8-2.4cm)Doppler AVA3.39cm2 AI P 1/2 Bcbu619.30ms LEFT VENTRICLE The left ventricle is of normal size. Wall thickness is normal. Ejection fraction is normal and is estimated at 55%. There is no gross wall motion abnormalities but endocardial definition is suboptim al. Diastolic function is indeterminate. RIGHT VENTRICLE The right ventricle is not well visualized. It is likely of normal size and systolic function. ATRIA Both atria are of normal size. Intra-atrial septum is not well visualized. MITRAL VALVE Normal structure and function. There is mild mitral regurgitation. PULMONIC VALVE Not well visualized. TRICUSPID VALVE Not well visualized. No significant tricuspid regurgitation. PA systolic pressure is not adequately estimated. AORTIC VALVE The aortic valve leaflets appeared to be a sclerotic. There is no significant stenosis. There is mi ld regurgitation. GREAT VESSELS The aortic root measures 4.0 cm at the level of the sinuses of Valsalva. Proximal ascending aorta is n't visualized. PERICARDIAL EFFUSION No significant pericardial effusion. IVC is of normal size and collapses normally with inspiration. Conclusion The study is technically limited. Normal left ventricular size and systolic function. Ejection fraction is estimated at 55%. Likely normal right ventricular size and systolic function. No hemodynamically significant valvular disease. PA systolic pressure is not adequately estimated. No significant pericardial effusion.
--- NOTE | 2024-05-20 13:38 | DVHPN2 ---
Consult Progress Note Subjective Other Systems: Patient denies any chest pain at time of assessment. Objective vital signs Vital Sign Date Time Temp Pulse Resp B/P (MAP) Pulse Ox O2 Delivery O2 Flow Rate FiO2 05/20/24 10:08 89 20 100 05/20/24 09:58 Nasal Cannula* 3 32 05/20/24 05:00 97.9 104/62 (76) 97.9 Total Intake and Output 05/19/24 05/19/24 05/20/24 15:00 23:00 07:00 Intake Total 956 ml 600 ml Output Total 880 ml 875 ml Balance 76 ml -275 ml medications Current Medications Medications Dose Ordered Sig/Sheldon Route Start Time Stop Time Status Last Admin Dose Admin Ipratropium [place] 0.5 mg Q4HWA [facility] 05/16/24 06:00 05/20/24 09:57 0.5 MG Albuterol 2.5 mg Q4HWA [facility] 05/16/24 06:00 05/20/24 09:57 2.5 MG Methylprednisolone Sodium Succinate 40 mg DAILY IV 05/16/24 10:00 05/20/24 09:22 40 MG Enoxaparin Sodium 40 mg DAILY@2200 SC 05/16/24 22:00 05/19/24 21:07 40 MG Acetaminophen 650 mg Q6HP PRN PO 05/16/24 03:00 05/19/24 17:15 650 MG Enteral Nutritional Formula 240 ml TIDWM PO 05/17/24 12:00 05/20/24 12:11 240 ML Pantoprazole Sodium 40 mg DAILY IV 05/17/24 10:00 05/20/24 09:22 40 MG Enteral Nutritional Formula 240 ml TIDWM PO 05/18/24 08:00 05/20/24 12:11 240 ML Levofloxacin 750 mg DAILY PO 05/19/24 10:00 05/20/24 09:22 750 MG Examination: GENERAL:Normal, LUNGS:Normal, CVS:Normal, NEURO:Normal laboratory and microbiology Laboratory Tests 05/19/24 09:41 Test 05/19/24 09:41 Range/Units Serum Glucose 105 74-106 mg/dL Problem List/Assessment/Plan Problem List/Assessment/Plan Chest pain, likely noncardiac Sepsis Pneumonia COPD with home oxygen dependence Emphysema Tobacco use Cachexia Plan/Recommendation (Dr. Augustine): Transthoracic echocardiogram reveals EF 55%. Case discussed with . Given the patient's clinical presentation, unremarkable twelve lead electrocardiogram, and negative troponin level, doubt ACS. There is no further inpatient cardiac workup indicated at this time. Patient may follow up with Cardiology in the outpatient setting for further workup if deemed necessary. Thank you for allowing us to care for this patient. Please call with any questions or concerns. This medical document was created using an electronic medical record system with voice recognition software and computerized dictation system. Although this document has been carefully reviewed, there might still be some phonetic and typographical errors. Occasional wrong-word or ``sound-alike substitutions may have occurred due to the inherent limitations of voice recognition software. These areas are purely typographical due to imperfections of the software programs and do not reflect any compromise in the patient's medical care. Please read the chart carefully and recognize, using context, where these substitutions have occurred. Plan discussed with: Patient Date of Service: May 20, 2024 Billing Provider: GENOVEVA AUGUSTINE MD Common Visit Codes: [id number] INP/OBS CARE(HIGH) NANY WIGGINS [facility] May 20, 2024 13:38
[2024-05-20] MEDS: MELATONIN 5 MG TAB PO ONE (23:01)
[2024-05-21] VITALS (23 sets, daily range): BP systolic 92–129; BP diastolic 55–74; PULSE 78–107; RESP 17–22; TEMP 97.5–98.1; O2SAT 94–100
[2024-05-21 07:14] LABS: Hemoglobin 11.3 g/dL (13.5-17.5); Mean Corpuscular Hgb Conc. 33.5 g/dL (32.0-36.0); White Blood Cell 16.9 10^3/uL (4.4-10.8)
[2024-05-21 07:18] LABS: Hematocrit 33.7 % (41.0-53.0); Mean Corpuscular Hemoglobin 29.8 pg (28.0-32.0); Platelet Count (auto) 529 10^3/uL (140-450); Red Blood Cells 3.78 10^6/uL (4.5-5.90); Red Cell Distribution Width 14.7 % (11.8-14.3)
[2024-05-21 07:24] LABS: Basophils % (manual) 0 (0.0-2.0); Blast Cells 0; Metamyelocytes % 0; Myelocytes % 0; Promyelocytes % 0
[2024-05-21 07:26] LABS: Anion Gap 4 (5-15); Potassium 4.6 mmol/L (3.5-5.1)
[2024-05-21 07:27] LABS: Calcium 9.6 mg/dL (8.7-10.4)
[2024-05-21 07:29] LABS: Carbon Dioxide 36 mmol/L (20-31); Chloride 95 mmol/L (98-107); Sodium 135 mmol/L (136-145)
[2024-05-21 07:32] LABS: BUN/Creatinine Ratio 45.7 (10.0-20.0); Glucose 83 mg/dL (74-106)
[2024-05-21 07:43] LABS: Blood Urea Nitrogen 37 mg/dL (9-23)
[2024-05-21 08:21] LABS: Band Neutrophils % (manual) 5; Eosinophils % (manual) 1 (0-7); Lymphocytes % (manual) 11 (10.0-50.0); Monocytes % (manual) 12 (0-12); Reactive Lymphocytes 1
[2024-05-21 08:22] LABS: Platelet Estimate Increased; RBC Morphology Normal
[2024-05-21] MEDS: SODIUM CHLORIDE 0.9% 1,000 ML IV SCH (10:52)
--- NOTE | 2024-05-21 14:20 | DVHDSRES ---
Discharge Summary Date of Admission Resident Creating Document: MEENU MONTOYA RESIDENT May 16, 2024 at 01:12 Date of Discharge: May 21, 2024 (Planned discharge was on 05/19/2024 but the patient had chest pain) Admitting Diagnosis COPD exacerbation Acute on chronic respiratory failure Labs/Diagnostic Data: PATIENT: NITISH TANNER GENEACCT: [id number] UNIT: [id number] : 1955 LOC: ER ROOM / BED: / AGE / SEX: 68 / M ADM STATUS: REG ER SERVICE 1800 ORDERING PHYSICIAN: ROSALIND LOVE MD PROCEDURE(s): CXRP - CHEST PORTABLE REASON: sob ORDER NUMBER(s): [id number], ACCESSION NUMBER(s): [id number] CHEST RADIOGRAPH Indication: sob Technique: Single frontal view of the chest was obtained Comparison: XY CHEST XRAY 1 VIEW on DOS: 06/15/23, XY CHEST XRAY 1 VIEW on DOS: 06/11/23 FINDINGS: Lines and Tubes: None Lungs: Hyperinflation. Bilateral perihilar peribronchial thickening with infiltrate in the right lower lobe Pleura: No effusion. No pneumothorax. Cardiomediastinal contours: Unremarkable Bones: No acute osseous abnormality. IMPRESSION: 1. Right lower lobe infiltrate. Laboratory Results Test 05/21/24 06:48 05/19/24 18:42 05/19/24 09:41 05/16/24 04:50 White Blood Count 16.9 10^3/uL (4.4-10.8) Red Blood Count 3.78 10^6/uL (4.5-5.90) Hemoglobin 11.3 g/dL (13.5-17.5) Hematocrit 33.7 % (41.0-53.0) Mean Corpuscular Volume 89.0 fL (80.0-100.0) Mean Corpuscular Hemoglobin 29.8 pg (28.0-32.0) Mean Corpuscular Hemoglobin Concent 33.5 g/dL (32.0-36.0) Red Cell Distribution Width 14.7 % (11.8-14.3) Platelet Count 529 10^3/uL (140-450) Mean Platelet Volume 6.9 fL (6.9-10.8) Neutrophils (%) (Auto) % (37.0-80.0) Lymphocytes (%) (Auto) % (10.0-50.0) Monocytes (%) (Auto) % (0.0-12.0) Basophils (%) (Auto) % (0.0-2.0) Neutrophils # (Auto) 10 ^3/uL (1.6-8.6) Lymphocytes # (Auto) 10 ^3/uL (0.4-5.4) Monocytes # (Auto) 10 ^3/uL (0-1.3) Differential Total Cells Counted 100.0 (100) Neutrophils % (Manual) 70 (37.0-80.0) Band Neutrophils % (Manual) 5 Lymphocytes % (Manual) 11 (10.0-50.0) Monocytes % (Manual) 12 (0-12) Eosinophils % (Manual) 1 (0-7) Basophils % (Manual) 0 (0.0-2.0) Metamyelocytes % (manual) 0 Myelocytes % (Manual) 0 Promyelocytes % (Manual) 0 Blast Cells % (Manual) 0 Reactive Lymphocytes 1 Platelet Estimate Increased Red Blood Cell Morphology Normal Sodium Level 135 mmol/L (136-145) Potassium Level 4.6 mmol/L (3.5-5.1) Chloride Level 95 mmol/L (98-107) Carbon Dioxide Level 36 mmol/L (20-31) Anion Gap 4 (5-15) Blood Urea Nitrogen 37 mg/dL (9-23) Creatinine 0.81 mg/dL (0.700-1.30) Glomerular Filtration Rate Calc 96 mL/min (>90) BUN/Creatinine Ratio 45.7 (10.0-20.0) Serum Glucose 83 mg/dL (74-106) Calcium Level 9.6 mg/dL (8.7-10.4) Troponin I High Sensitivity 3 ng/L (</=54) Eosinophils (%) (Auto) 0.3 % (0.0-7.0) Eosinophils # (Auto) 0 10 ^3/uL (0-0.8) Basophils # (Auto) 0 10 ^3/uL (0-0.2) Nucleated Red Blood Cells 0.2 % Total Bilirubin 0.2 mg/dL (0.2-1.0) Aspartate Amino Transferase (AST) 20 U/L (13-40) Alanine Aminotransferase (ALT) 29 U/L (7-40) Alkaline Phosphatase 93 U/L (46-116) Total Protein 6.5 g/dL (5.7-8.2) Albumin 3.9 g/dL (3.2-4.8) Hemoglobin A1c 6.1 % A1C (<5.7) Test 05/16/24 02:46 05/16/24 01:45 05/16/24 00:15 05/15/24 18:26 Urine Color Light-yellow (Yellow) Urine Clarity Clear (Clear) Urine pH 6.5 (5.0-9.0) Urine Specific [place] 1.018 (1.001-1.035) Urine Protein Negative (Negative) Urine Ketones Negative (Negative) Urine Blood Negative /uL (Negative) Urine Nitrite Negative (Negative) Urine Bilirubin Negative (Negative) Urine Urobilinogen Normal mg/dL (Negative) Urine Leukocyte Esterase Negative /uL (Negative) Urine RBC <1 /hpf (0 - 3) Urine Microscopic WBC 1 /HPF (0-3) Urine Squamous Epithelial Cells None seen /hpf (<5) Urine Bacteria None seen /hpf (None Seen) Urine Glucose Normal mg/dL (Normal) Urine Opiates Screen Neg (NEGATIVE) Urine Fentanyl Screen Neg (NEGATIVE) Urine Barbiturates Screen Neg (NEGATIVE) Urine Phencyclidine Screen Neg (NEGATIVE) Urine Amphetamines Screen Neg (NEGATIVE) Urine Benzodiazepines Screen Neg (NEGATIVE) Urine Cocaine Screen Neg (NEGATIVE) Urine Cannabinoids Screen Neg (NEGATIVE) Lactic Acid Level 1.3 mmol/L (0.4-2.0) Influenza Type A Antigen Negative (Negative) Influenza Type B Antigen Negative (Negative) SARS-CoV-2 Antigen (Rapid) Negative (NEGATIVE) B-Type Natriuretic Peptide 77.97 pg/mL (0-100) Other Laboratory Tests 05/21/24 06:48 Brief Hx & Hospital Course: Hospital Course This 69-year-old male with past medical history of COPD (on 3 L of oxygen at home), emphysema and prediabetes presented to the ED (on 05/16/2024) with shortness of breath without improvement even at a higher oxygen level. He also reported productive cough with yellowish sputum, and mild chest pain. Due to severe shortness of breaths, the patient can not speak in full sentence. Patient denied, fever, nausea, vomiting, any recent sick contact, and dysuria. In the ED, his initial vitals were temperature 98.6, HR 99,RR 20,28 blood pressure 138/63 and was on 4L of oxygen. Blood work revealed WBC of 16.1 hemoglobin 11.7 platelet 451. Chest x-ray showed Right lower lobe infiltrate. This was managed with antibiotics, Solu-Medrol, breathing treatment, adequate hydration and adequate nutrition. He has been on antibiotics IV transitioned then to oral for the past 5 days. Patient has been steadily improving and on examination to day, his air entry is much better and not in any obvious respiration. Patient is bad to his baseline oxygen level of 3 L. On Sunday May 19, 2024, as we were about to discharge the patient to the SNF, patient started complaining of chest pain. We did an EKG which was unremarkable and troponin levels was 3. Given his chronic COPD exacerbation state we decided to consult cardiology. Cardiology saw the patient and did workup and was noted in the no the patient's chest pain was non-cardiac related. Patient agreed that he he was anxious or has anxiety leading to the chest pain. Patient is still doing well and ready for transfer to SNF. Examination on May 21, 2024 General Appearance: Alert, Oriented X3, cachectic HEENT: Atraumatic, PERRLA, EOMI, Mucous membrane moist/pink, temporal and muscle wasting Respiratory: improved air entry Cardiovascular: Regular rate, Normal S1, Normal S2, No murmurs, no chest wall tenderness Abdominal: Normal bowel sounds, Soft, No tenderness, No hepatosplenomegaly, No masses Extremities: No clubbing, No cyanosis, No edema, Normal pulses, No tenderness/swelling Skin: No rashes, No breakdown, No significant lesion Neuro: Normal gait, Normal speech, Strength at 5/5 X4 ext, Normal tone, Sensation intact, Cranial nerves 3-12 NL, Reflexes 2+ Psych/Mental Status: Mental status NL, Mood NL Diagnoses: Sepsis, likely due to pneumonia Pneumonia, likely due to Gram-positive Gram-negative bacteria/viral Acute on chronic hypoxic respiratory failure, likely due to COPD exacerbation COPD exacerbation Emphysema Prediabetes, Hb A1c from 06/13/2023 is 5.9 Severe malnutrition with Cachexia, BMI is 15.7 --> 14.4 Hyponatremia Mild hyperglycemia Normocytic normochromic anemia Non-cardiac chest pain Discharge plan Discharge to SNF Continue antibiotics for the next 3 days Taper down steroid over 8 each day Continue nutrition rehabilitation Repeat daily CBC, BMP Follow up at the discharge clinic in 7 days 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 Carter; counseled on tobacco use cessation for 16 minutes. Consults/Reason for consult Chest pain Condition at Discharge: Stable Final Diagnosis/Problems List Sepsis, likely due to pneumonia Pneumonia, likely due to Gram-positive Gram-negative bacteria/viral Acute on chronic hypoxic respiratory failure, likely due to COPD exacerbation COPD exacerbation Emphysema Prediabetes, Hb A1c from 06/13/2023 is 5.9 Severe malnutrition with Cachexia, BMI is 15.7 --> 14.4 Hyponatremia Mild hyperglycemia Normocytic normochromic anemia chest pain/pressure ( Noncardiac) Discharge Disposition: Senior Living Facility Discharge Instruct/Medications Diet: Regular Diet comment: Ensure Activity: Light activity Follow Up/Referral: Discharge clinic 7 days Medications: see med records Discharge Statement: "Patient was advised to return to the ER or call 911 if any headaches, dizziness, shortness of breath, chest pain, abdominal pain, bleeding, fevers, or worsening of medical condition. Patient was counseled about treatment plan, medications, possible side effects, patientverbalized understanding. All questions were answered to the best of my ability. This discharge took greater then 30 minutes in planning, reviewing documentation, counseling the patient, and discussing with other team members." ASSESSMENT ASSESSMENT Assessment Sepsis, likely due to pneumonia Pneumonia, likely due to Gram-positive Gram-negative bacteria/viral Acute on chronic hypoxic respiratory failure, likely due to COPD exacerbation COPD exacerbation Emphysema Prediabetes, Hb A1c from 06/13/2023 is 5.9 Severe malnutrition with Cachexia, BMI is 15.7 --> 14.4 Hyponatremia Mild hyperglycemia Normocytic normochromic anemia chest pain/pressure ( Noncardiac) Date of Service: May 21, 2024 Billing Provider: LISA CARTER MD Common Visit Codes: 07518-ENX/OBS DISCH DAY >30min MEENU MONTOYA RESIDENT May 21, 2024 14:20 LISA CARTER MD May 22, 2024 10:13
--- NOTE | 2024-05-21 15:17 | ECG ---
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
[2024-05-22] VITALS (10 sets, daily range): BP systolic 109–133; BP diastolic 55–69; PULSE 72–94; RESP 18–92; TEMP 97.6–98.6; O2SAT 92–100
[2024-05-22 11:00] LABS: Red Blood Cells 3.99 10^6/uL (4.5-5.90)
[2024-05-22 11:21] LABS: Alkaline Phosphatase 83 U/L (46-116); Anion Gap 10 (5-15); BUN/Creatinine Ratio 34.2 (10.0-20.0); Calcium 9.2 mg/dL (8.7-10.4); Carbon Dioxide 29 mmol/L (20-31); Glucose 104 mg/dL (74-106); Potassium 4.1 mmol/L (3.5-5.1)
[2024-05-22 11:23] LABS: Aspartate Aminotransferase 32 U/L (13-40); Total Protein 6.5 g/dL (5.7-8.2)
[2024-05-22 11:24] LABS: Alanine Aminotransferase 75 U/L (7-40); Bilirubin, Total 0.3 mg/dL (0.2-1.0); Blood Urea Nitrogen 27 mg/dL (9-23); Chloride 97 mmol/L (98-107); Hematocrit 35.7 % (41.0-53.0); Hemoglobin 11.9 g/dL (13.5-17.5); Mean Corpuscular Hemoglobin 29.8 pg (28.0-32.0); Mean Corpuscular Hgb Conc. 33.3 g/dL (32.0-36.0); Mean Corpuscular Volume 89.4 fL (80.0-100.0); Platelet Count (auto) 600 10^3/uL (140-450); Sodium 136 mmol/L (136-145); White Blood Cell 16.1 10^3/uL (4.4-10.8)
[2024-05-22 11:27] LABS: Basophils % (manual) 0 (0.0-2.0); Blast Cells 0; Promyelocytes % 0; Reactive Lymphocytes 0
[2024-05-22 12:19] LABS: Band Neutrophils % (manual) 4; Eosinophils % (manual) 2 (0-7); Lymphocytes % (manual) 11 (10.0-50.0); Metamyelocytes % 5; Monocytes % (manual) 8 (0-12); Myelocytes % 1; Platelet Estimate Increased
--- NOTE | 2024-05-22 16:02 | DVHPNRES ---
Progress Note Date Seen: May 22, 2024 Resident Creating Document: MEENU MONTOYA RESIDENT Medical Necessity Reason Pt with a Central, PICC or Fol: No Medical Necessity Reason COPD exacerbation Pneumonia He had a funny respiratory failure Subjective Review of Systems Patient was discharged yesterday to post acute care facility. He was initially accepted at post acute care in [place] on Tuesday. However, prior to patient being discharged, he started complaining of chest pain. Therefore, patient was unable to to leave. He was seen by cardiology and worked up pretty well but nothing was found. His chest pain was most likely noncardiac related. I discharged the patient yesterday, but the accepting facility did not have any beds available. Therefore, patient could not leave. This morning, piano case and bench assembler received an information from the facility that the patient now has a bed in room 209. Thus he left to the facility. Objective vital signs Vital Sign Date Time Temp Pulse Resp B/P (MAP) Pulse Ox O2 Delivery O2 Flow Rate FiO2 05/22/24 11:51 98.6 94 92 114/66 (82) 92 98.6 05/22/24 09:37 Nasal Cannula 3.0 05/22/24 09:37 32 Total Intake and Output 05/21/24 05/21/24 05/22/24 15:00 23:00 07:00 Intake Total 200 ml 1040 ml 500 ml Output Total 725 ml 1200 ml Balance 200 ml 315 ml -700 ml Examination General Appearance: Alert, Oriented X3, cachectic HEENT: Atraumatic, PERRLA, EOMI, Mucous membrane moist/pink, temporal and muscle wasting Respiratory: improved air entry Cardiovascular: Regular rate, Normal S1, Normal S2, No murmurs, no chest wall tenderness Abdominal: Normal bowel sounds, Soft, No tenderness, No hepatosplenomegaly, No masses Extremities: No clubbing, No cyanosis, No edema, Normal pulses, No tenderness/swelling Skin: No rashes, No breakdown, No significant lesion Neuro: Normal gait, Normal speech, Strength at 5/5 X4 ext, Normal tone, Sensation intact, Cranial nerves 3-12 NL, Reflexes 2+ Psych/Mental Status: Mental status NL, Mood NL laboratory and microbiology Laboratory Tests 05/22/24 10:19 Test 05/22/24 10:19 Range/Units Serum Glucose 104 74-106 mg/dL Microbiology Date/Time Source Procedure Growth Status 05/17/24 09:00 Sputum Gram Stain - Final Complete 05/17/24 09:00 Respiratory Culture - Final Presumptive Evelyne albicans Complete 05/17/24 08:00 Nose MRSA Screen - Final Complete 05/16/24 01:45 Blood Blood Culture - Final NO GROWTH AFTER 5 DAYS OF INCUBATION. Complete Problem List/Assessment/Plan Problem List/Assessment/Plan Assessment Sepsis, likely due to pneumonia Pneumonia, likely due to Gram-positive Gram-negative bacteria/viral Acute on chronic hypoxic respiratory failure, likely due to COPD exacerbation COPD exacerbation Emphysema Prediabetes, Hb A1c ( from 06/13/2023 is 5.9) Severe malnutrition with Cachexia, BMI is 15.7 --> 14.4 Hyponatremia Mild hyperglycemia Normocytic normochromic anemia Plan Azithromycin--> Stop Ceftriaxone--> Stop levofloxacin 750 mg daily Breathing treatment q.4 hours Solu-Medrol 40 mg IV daily Ensure TID Oxygen through nasal cannula on 3L at baseline Check MRSA nares and blood/sputum culture-->pending DIET: Cardiac diet DVT PROPHYLAXIS: levonox CODE STATUS: Full Goal of care discussed for more than 25 minutes Case and plan discuss with Dr. Dr. Fontana Plan discussed with: Patient My Orders My Orders Orders - MEENU MONTOYA Procedure Category Date Status Time * Napper Runner CONS 05/21/24 Transmitted Consult 17:54 Date of Service: May 22, 2024 Billing Provider: LISA FONTANA MD Common Visit Codes: [id number] INP/OBS CARE(HIGH) MEENU MONTOYA RESIDENT May 22, 2024 16:02 LISA FONTANA MD May 23, 2024 10:19
== END 2024-05-22 13:20 | DRG 871 ==
LOC: EDBD 17:58 → ER 18:01 → OVERFLOW 05-16 01:12 → WEST WING 05-16 23:30
PROVIDERS: ADMIT Internal Medicine; ATTEND Internal Medicine
DX: A41.59 Other Gram-negative sepsis (principal); E43 Unspecified severe protein-calorie malnutrition; J15.69 Pneumonia due to other Gram-negative bacteria; J15.9 Unspecified bacterial pneumonia; J96.21 Acute and chronic respiratory failure with hypoxia; J12.9 Viral pneumonia, unspecified; J44.0 Chronic obstructive pulmonary disease with (acute) lower respiratory infection; E87.1 Hypo-osmolality and hyponatremia; R64 Cachexia; J44.1 Chronic obstructive pulmonary disease with (acute) exacerbation; Z20.822 Contact with and (suspected) exposure to COVID-19; D64.9 Anemia, unspecified; J43.9 Emphysema, unspecified; F17.200 Nicotine dependence, unspecified, uncomplicated; D75.839 Thrombocytosis, unspecified; E11.65 Type 2 diabetes mellitus with hyperglycemia; Z99.81 Dependence on supplemental oxygen; Z83.3 Family history of diabetes mellitus; Z82.49 Family history of ischemic heart disease and other diseases of the circulatory system; Z82.0 Family history of epilepsy and other diseases of the nervous system; Z79.899 Other long term (current) drug therapy; Z79.4 Long term (current) use of insulin; Z68.31 Body mass index [BMI] 31.0-31.9, adult
CPT/HCPCS: 36415; 71045; 80048; 80053; 80307; 81001; 83036; 83605; 83880; 84484; 85007; 85025; 85027; 87040; 87070; 87077; 87081; 87186; 87205; 87426; 87804; 93005; 93306; 94640; 96365; 96375; 97110; 97163; 97530; 99291; G0378; J2470

== ENCOUNTER 2024-06-17 07:22 | Inpatient (IN) | payer MEDICARE, MEDICAID ==
[~2024-06-17] VITALS: Ht 182.9 cm; Wt 42.5 kg
[2024-06-17] VITALS (7 sets, daily range): BP systolic 124–166; BP diastolic 63–83; PULSE 90–93; RESP 16–19; TEMP 98; O2SAT 97–100
[~2024-06-17 07:22] MED LIST changes: -ALBUAER3 IN; -AZIT500T66 PO; -CITA10TA5 PO; +FLUT1AER3 IN; -PRED20TA2 PO
--- NOTE | 2024-06-17 07:35 | ECG ---
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
--- NOTE | 2024-06-17 07:48 | ED.PDOC ---
GI ASSESSMENT HPI Comments 69 year old male BLADIMIR presents to the ED with chief complaint of abdominal pain. EMS reports that the patient is coming from [facility] for diffuse abdominal pain with associated constipation and blood in stool since yesterday at 2pm. EMS relays that the patient is currently being given 2 doses of Morphine daily for an unknown reason at the post acute center. Patient states that his pain radiates into his back and it has been a long time since he has had a normal bowel movement. Patient denies any N/V/D, dizziness, fever, chills, dysuria, or hematemesis. Chief Complaint: Abdominal Pain Time Seen by MD: 07:42 Primary Care Provider: NONE Reviewed Notes: Nurses Notes, Pill Coater Notes, Medications, Allergies Allergies: Coded Allergies: NO KNOWN ALLERGIES (Unverified , 04/08/14) Home Meds Active Scripts Ipratropium [place] Hfa (Atrovent Hfa) 17 Mcg Aer, 2 PUFF INH QID for 1 Day, #12.9 GRAMS 5 Refills Prov:PARVIN MATA MD 06/14/23 Reported Medications Lwtfuvgfrhf-Gikttowxlqvf-Hlhts (Trelegy Ellipta 100-62.5-25 Mcg/INH) 1 Aer Aer, 1 AER IN, AER 05/17/24 Albuterol Sulfate (Albuterol Sulfate) 2 Mg Tab, 2 MG PO Q6HP PRN for SHORTNESS OF BREATH, MG 04/09/14 Information Source: Patient, Emergency Med Personnel Mode of Arrival: EMS Timing: Days Duration: Since onset Prehospital treatment: None Quality: Sharp Vomitus: None Stool: Impaction, Blood Streaked Severity: Moderate Recent: None Recent Hx of: GI Bleed Pain Location: Diffuse Modifying Factors: Nothing Associated sign and symptoms: Constipation, Abdominal Pain, Blood in Stool Past Medical History PAST MEDICAL HISTORY: COPD, DM, Liver Surgical History: Denies all surgeries Family History Family History: No family hx of DM, No family hx of Heart dejah Social History Smoker: Quit Less Than 1 Year, Cigarettes, Greater Than 1 Pack/Day Alcohol: Denies ETOH Use Drugs: Denies Drug Use Lives In: Assisted Care Constitutional: denies: chills, diaphoresis, fatigue, fever, malaise, sweats, weakness, others EENTM: denies: blurred vision, double vision, ear bleeding, ear discharge, ear drainage, ear pain, ear ringing, eye pain, eye redness, hearing loss, mouth pain, mouth swelling, nasal discharge, nose bleeding, nose congestion, nose pain, photophobia, tearing, throat pain, throat swelling, voice changes, others Respiratory: denies: cough, hemoptysis, orthopnea, SOB at rest, shortness of breath, SOB with excertion, stridor, wheezing, others Cardiovascular: denies: chest pain, dizzy spells, diaphoresis, Dyspnea on exertion, edema, irregular heart beat, left arm pain, lightheadedness, palpitations, PND, syncope, others Gastrointestinal: reports: abdomen distended, abdominal pain, blood streaked bowels, constipated; denies: diarrhea, dysphagia, difficulty swallowing, hematemesis, melena, nausea, poor appetite, poor fluid intake, rectal bleeding, rectal pain, vomiting, others Genitourinary: denies: burning, dysuria, flank pain, frequency, hematuria, incontinence, penile discharge, penile sore, pain, testicle pain, testicle swelling, urgency, others Neurological: denies: dizziness, fainting, headache, left sided numbness, left sided weakness, numbness, paresthesia, pre-existing deficit, right sided numbness, right sided weakness, seizure, speech problems, tingling, tremors, weakness, others Musculoskeletal: denies: back pain, gout, joint pain, joint swelling, muscle pain, muscle stiffness, neck pain, others Integumetry: denies: bruises, change in color, change in hair/nails, dryness, laceration, lesions, lumps, rash, wounds, others Allergic/Immunocompromised: denies: Difficulty Healing, Frequent Infections, Hives, Itching, others Hematologic/Lymphatic: denies: anemia, blood clots, easy bleeding, easy bruising, swollen glands, others Endocrine: denies: excessive hunger, excessive sweating, excessive thirst, excessive urination, flushing, intolerance to cold, intolerance to heat, unexplained weight gain, unexplained weight loss, others Psychiatric: denies: anxiety, bipolar disorder, depression, hopeless, panic disorder, schizophrenia, sleepless, suicidal, others All Other Systems: Reviewed and Negative Physical Exam General Appearance: No Apparent Distress, Normal HEENT: Normal ENT Inspection, PERRL/EOMI Neck: Full Range of Motion, Non-Tender, Normal, Normal Inspection Respiratory: Chest Non-Tender, Lungs Clear, No Accessory Muscle Use, No Respiratory Distress, Normal Breath Sounds Cardiovascular: No Edema, No JVD, No Murmur, No Gallop, Normal Peripheral Pulses, Regular Rate/Rhythm Breast Exam: Deferred Gastrointestinal: Distended, No Organomegaly, No Pulsatile Mass, Normal Bowel Sounds, Soft, Tenderness Genitalia: Deferred Pelvic: Deferred Rectal: Deferred Extremities: No calf tenderness, Normal capillary refill, Normal inspection, Normal range of motion, Non-tender, No pedal edema Musculoskeletal : Apperance: Normal Neurologic: Alert, polysomnography technologist II-XII nml as Tested, No Motor Deficits, Normal Affect, Normal Mood, No Sensory Deficits Cerebellar Function: Normal Reflexes: Normal Skin: Dry, Normal Color, Warm Lymphatic: No Adenopathy Was a procedure done? Was a procedure done?: No GI differential Dx Differential Diagnosis: Gastritis/PUD, Gastroenteritis, Inflammatory BD, Ischemic Bowel, Dehydration, Diabetes/ DKA, Impaction, Ischemic Bowel X-Ray, Labs, Meds, VS Vital Signs Date Time Temp Pulse Resp B/P (MAP) Pulse Ox O2 Delivery O2 Flow Rate FiO2 06/17/24 11:41 87 06/17/24 09:37 99 17 143/80 (101) 98 06/17/24 09:36 98 17 143/80 06/17/24 08:08 97.6 91 16 126/77 (93) 97 97.6 06/17/24 08:08 91 16 126/77 06/17/24 08:06 91 16 97 Nasal Cannula* 3 32 06/17/24 07:33 99 06/17/24 07:31 97.8 112 20 130/80 (97) 95 Lab Test 06/17/24 08:17 06/17/24 07:42 Range/Units Urine Color Pending Urine Clarity Pending Urine pH Pending Urine Specific [place] Pending Urine Protein Pending Urine Ketones Pending Urine Blood Pending Urine Nitrite Pending Urine Bilirubin Pending Urine Urobilinogen Pending Urine Leukocyte Esterase Pending Urine RBC Pending Urine Microscopic WBC Pending Urine Squamous Epithelial Cells Pending Urine Bacteria Pending Urine Glucose Pending Sodium Level 140 136-145 mmol/L Potassium Level 4.6 3.5-5.1 mmol/L Chloride Level 104 98-107 mmol/L Carbon Dioxide Level 30 20-31 mmol/L Anion Gap 6 5-15 Blood Urea Nitrogen 18 9-23 mg/dL Creatinine 0.89 0.700-1.30 mg/dL Glomerular Filtration Rate Calc 93 >90 mL/min BUN/Creatinine Ratio 20.2 H 10.0-20.0 Serum Glucose 135 H 74-106 mg/dL Calcium Level 9.4 8.7-10.4 mg/dL White Blood Count 9.1 4.4-10.8 10^3/uL Red Blood Count 4.13 L 4.5-5.90 10^6/uL Hemoglobin 11.7 L 13.5-17.5 g/dL Hematocrit 36.4 L 41.0-53.0 % Mean Corpuscular Volume 88.1 80.0-100.0 fL Mean Corpuscular Hemoglobin 28.4 28.0-32.0 pg Mean Corpuscular Hemoglobin Concent 32.2 32.0-36.0 g/dL Red Cell Distribution Width 15.3 H 11.8-14.3 % Platelet Count 372 140-450 10^3/uL Mean Platelet Volume 7.5 6.9-10.8 fL Neutrophils (%) (Auto) 78.8 37.0-80.0 % Lymphocytes (%) (Auto) 7.8 L 10.0-50.0 % Monocytes (%) (Auto) 10.4 0.0-12.0 % Eosinophils (%) (Auto) 1.9 0.0-7.0 % Basophils (%) (Auto) 1.1 0.0-2.0 % Neutrophils # (Auto) 7.2 1.6-8.6 10 ^3/uL Lymphocytes # (Auto) 0.7 0.4-5.4 10 ^3/uL Monocytes # (Auto) 1.0 0-1.3 10 ^3/uL Eosinophils # (Auto) 0.2 0-0.8 10 ^3/uL Basophils # (Auto) 0.1 0-0.2 10 ^3/uL Nucleated Red Blood Cells 0.0 % Current Medications Medications (Trade) Dose Ordered Sig/Sheldon Route Start Time Stop Time Status Last Admin Sodium Chloride 1,000 ml @ 1,000 mls/hr Q1H ONCE IV 06/17/24 07:45 06/17/24 08:44 DC 06/17/24 08:02 Ondansetron HCl (Zofran) 4 mg ONCE ONCE IV 06/17/24 07:45 06/17/24 07:46 DC 06/17/24 08:08 Morphine Sulfate 4 mg ONCE ONCE IV 06/17/24 07:45 06/17/24 07:46 DC 06/17/24 08:08 CT Abd/Pel: FINDINGS: Lower Chest: Unremarkable. Hepatobiliary: Unremarkable. Spleen: Unremarkable. Pancreas: Unremarkable. Adrenal Glands: Unremarkable. tract: The kidneys are normal in size bilaterally without hydronephrosis or nephrolithiasis. The urinary bladder is unremarkable. GI tract: A small sliding hiatal hernia noted. No evidence of small bowel obstruction. Circumferential mural thickening of the distal descending colon measuring 2.2 cm in length with thin single-layer thickness of 0.9 cm with re sultant gas and fecal matter dilatation of the large bowel proximal to this measuring up to 10 cm in the region of the cecum. The appendix is not visualized. No inflammatory change is noted in the right lower quadrant. Prolapsed hemorrhoids noted. Lymphatics: No mesenteric, retroperitoneal or periportal lymphadenopathy. Vasculature: The abdominal aorta is normal in caliber. Diffuse calcified plaque formation is noted. Pelvic Organs: Unremarkable Bones/soft tissues: No acute abnormality. Deformity of the left proximal femur reflecting an old healed fracture. 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 Moderate bilateral hip joint osteoarthritis. Mild chronic anterior compression deformities of T11 and T12 with approximately 10% loss of height without retropulsion. Schmorl's nodes are seen in several lumbar endplates. Other: None. IMPRESSION: 1. Short-segment circumferential mural thickening of distal descending colon measuring 0.9 cm in single layer thickness gaseous and fecal distention of the large bowel proximal to this measuring up to 10 cm in the cecum concerning for an annular. Recommend further evaluation with colonoscopy biopsy. Line herniated hemorrhoids.Small sliding hiatal hernia. 2. Small right basilar pulmonary opacities that may represent atelectasis or pneumonia/ aspiration pneumonia. Recommend clinical and biochemical correlation. Images Reviewed?: Images reviewed and evaluated by me Time of 1ST Reevaluation: 08:42 Reevaluation 1ST: Unchanged Patient Education/Counseling: Diagnosis, Treatment Family Education/Counseling: No Family Present Additional Information The following tests were ordered, and results were reviewed by me: UA, CBC, BMP, EKG, CT Abd/Pel w/ IV Con Additional Information was gathered from interviewing the following independent historians: EMS I reviewed and agreed with the following test results read by other providers: CT Abd/Pel w/ IV Con I discussed treatment and results with medical personnel. Departure 1 Departure Time of Disposition: 12:06 (Patient presented with abdominal pain that was concerning for possible appendicits, gastritis, cholecystitis, colitis, gastroenteritis, sbo, or orther possible surgical emergency. Data: 1. I ordered and reviewed the result of at least 3 labs including a CBC, BMP, and Urinalysis. 2. I independently interpreted the following tests: CT Abdoment and Pelvis is concerning for large bowel obstruction .Risk:This patient has a high risk of morbidity due to further diagnostic testing or treatment and may suffer from an acute abdominal process disorder. Workup reveals inflamed bowel and concern for obstruction and patient should be admitted for further workup. and possible expert consultation. ) Impression: Primary Impression: Abdominal pain Qualified Codes: R10.84 - Generalized abdominal pain Additional Impressions: Constipation Qualified Codes: K59.00 - Constipation, unspecified Colon distention Disposition: ADMITTED INPATIENT Admit to: Med Surg Condition: Serious Critical Care Note Critical Care Time?: Yes Critical care comment: Intractable abdominal pain Authorized and Performed by: James Card MD Total critical care time: Approximately 38 minutes Due to a high probability of clinically significant, life threatening deterioration, the patient required my highest level of preparedness to intervene emergently and I personally spent this critical care time directly and personally managing the patient. This critical care time included obtaining a history; examining the patient; pulse oximetry; ordering and review of studies; arranging urgent treatment with development of a management plan; evaluation of patient's response to treatment; frequent reassessment; and, discussions with other providers. This critical care time was performed to assess and manage the high probability of imminent, life-threatening deterioration that could result in multi-organ failure. It was exclusive of separately billable procedures and treating other patients and teaching time. Please see my other sections and the rest of the note for further information on patient assessment and treatment. Stability Stability form required: No Heart Score Heart Score: Heart Score Response (Comments) Value History N/A 0 EKG N/A 0 Age N/A 0 Risk Factors N/A 0 Troponin N/A 0 Total 0 I personally scribed for JAMES CARD MD ([email or web address]) on 06/17/24 at 07:48. Electronically submitted by Alberto Moran ([email or web address]). I personally scribed for JAMES CARD MD ([email or web address]) on 06/17/24 at 07:49. Electronically submitted by Alberto Moran ([email or web address]). I personally scribed for JAMES CARD MD ([email or web address]) on 06/17/24 at 11:25. Electronically submitted by Alberto Moran ([email or web address]). JAMES CARD MD Jun 17, 2024 07:48
[2024-06-17] MEDS: SODIUM CHLORIDE 0.9% 1,000 ML IV ONE (08:02)
[2024-06-17] MEDS: MORPHINE SULFATE 4 MG/ML SYR/VIAL IV ONE (08:08)
[2024-06-17] MEDS: ONDANSETRON HCL 4 MG/2 ML VIAL IV ONE (08:08)
[2024-06-17 08:37] LABS: Basophils # (auto) 0.1 10 ^3/uL (0-0.2); Basophils % (auto) 1.1 % (0.0-2.0); Eosinophils # (auto) 0.2 10 ^3/uL (0-0.8); Eosinophils % (auto) 1.9 % (0.0-7.0); Hematocrit 36.4 % (41.0-53.0); Hemoglobin 11.7 g/dL (13.5-17.5); Lymphocytes # (auto) 0.7 10 ^3/uL (0.4-5.4); Lymphocytes % (auto) 7.8 % (10.0-50.0); Mean Corpuscular Hemoglobin 28.4 pg (28.0-32.0); Mean Corpuscular Hgb Conc. 32.2 g/dL (32.0-36.0); Mean Corpuscular Volume 88.1 fL (80.0-100.0); Monocytes % (auto) 10.4 % (0.0-12.0); Neutrophils # (auto) 7.2 10 ^3/uL (1.6-8.6); Neutrophils % (auto) 78.8 % (37.0-80.0); Platelet Count (auto) 372 10^3/uL (140-450); Red Blood Cells 4.13 10^6/uL (4.5-5.90); Red Cell Distribution Width 15.3 % (11.8-14.3); White Blood Cell 9.1 10^3/uL (4.4-10.8)
[2024-06-17 08:44] LABS: Chloride 104 mmol/L (98-107); Potassium 4.6 mmol/L (3.5-5.1); Sodium 140 mmol/L (136-145)
[2024-06-17 08:45] LABS: Anion Gap 6 (5-15); Carbon Dioxide 30 mmol/L (20-31)
[2024-06-17 08:46] LABS: Calcium 9.4 mg/dL (8.7-10.4)
[2024-06-17 08:55] LABS: Glucose 135 mg/dL (74-106)
[2024-06-17 08:56] LABS: BUN/Creatinine Ratio 20.2 (10.0-20.0); Blood Urea Nitrogen 18 mg/dL (9-23)
[2024-06-17] MEDS: IOHEXOL 300 MG/ML 100ML BOTTLE IJ ONE (10:06)
--- NOTE | 2024-06-17 10:27 | DVH ---
Was adequate Procedure: CT CT AB PEL WITH IV CON ONLY 06/17/2024 09:50 AM Indication: abdominal pain, brbpr Comparison Study: None Technique: Axial images were obtained and reformatted in coronal and sagittal planes. All CT scans at this medical facility are performed using dose modulation techniques as appropriate t o a performed exam including the following: Automated exposure control was utilized; adjustment of th e MA and/or KV according to patient size; and use of iterative reconstruction technique. CT Dose: CTDI volume is 5.5 mGy. Dose-length product is 263.99 mGy*cm FINDINGS: Lower Chest: Unremarkable. Hepatobiliary: Unremarkable. Spleen: Unremarkable. Pancreas: Unremarkable. Adrenal Glands: Unremarkable. tract: The kidneys are normal in size bilaterally without hydronephrosis or nephrolithiasis. The urinary bladder is unremarkable. GI tract: A small sliding hiatal hernia noted. No evidence of small bowel obstruction. Circumferenti al mural thickening of the distal descending colon measuring 2.2 cm in length with thin single-layer thickness of 0.9 cm with resultant gas and fecal matter dilatation of the large bowel proximal to thi s measuring up to 10 cm in the region of the cecum. The appendix is not visualized. No inflammatory change is noted in the right lower quadrant. Prolapsed hemorrhoids noted. Lymphatics: No mesenteric, retroperitoneal or periportal lymphadenopathy. Vasculature: The abdominal aorta is normal in caliber. Diffuse calcified plaque formation is noted. Pelvic Organs: Unremarkable Bones/soft tissues: No acute abnormality. Deformity of the left proximal femur reflecting an old heal ed fracture. 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 Moderate bilateral hip joint osteoarthritis. Mild chronic anterior bonnie aleah deformities of T11 and T12 with approximately 10% loss of height without retropulsion. Schmorl' s nodes are seen in several lumbar endplates. Other: None. IMPRESSION: 1. Short-segment circumferential mural thickening of distal descending colon measuring 0.9 cm in sing [place] layer thickness gaseous and fecal distention of the large bowel proximal to this measuring up to 1 0 cm in the cecum concerning for an annular. Recommend further evaluation with colonoscopy biopsy. L ine herniated hemorrhoids.Small sliding hiatal hernia. 2. Small right basilar pulmonary opacities that may represent atelectasis or pneumonia/ aspiration pn eumonia. Recommend clinical and biochemical correlation.
[2024-06-17] MEDS ORDERED: ONDANSETRON HCL 4 MG/2 ML VIAL IV PRN (13:15)
[2024-06-17] MEDS ORDERED: ACETAMINOPHEN 325 MG TAB PO PRN (13:15)
[2024-06-17] MEDS ORDERED: IPRATROPIUM BROM 0.5 MG/2.5ML INH SOL NEB PRN (13:15)
[2024-06-17] MEDS ORDERED: ALBUTEROL SULF 2.5 MG/0.5ML(0.5%) NEB SOLN NEB PRN (13:15)
--- NOTE | 2024-06-17 13:28 | DVH ---
EXAM: XY CHEST PORTABLE HISTORY: NG TUBE PLACEMENT COMPARISON: XY CHEST PORTABLE on DOS: 05/15/24, XY CHEST XRAY 1 VIEW on DOS: 06/15/23, XY CHEST XRAY 1 VIEW on DOS: 06/11/23 TECHNIQUE: Portable AP view of the chest was performed. FINDINGS: NG tube is identified with its tip in the distal esophagus. There is mild right basilar interstitial infiltrate, improved versus prior chest x-ray. Lungs are hyperexpanded suggestive of emphysema. No pn eumothorax, new infiltrates, or pulmonary edema. The heart is not enlarged. The aortic arch is calci fic. IMPRESSION: 1. NG tube tip is in the distal esophagus. Recommend advancing 10 cm. 2. Improved right basilar pneumonia. 3. Probable emphysema. 4. Atherosclerotic vascular disease.
--- NOTE | 2024-06-17 13:30 | DVHHP2 ---
History of Present Illness Reason for Visit: Abdominal pain History of Present Illness This 69-year-old male presents in the ED with a chief complaint of abdominal pain. The patient reports abdominal pain associated with nausea, vomiting, and constipation started yesterday. Patient states unable to keep food down leading him to call 911. He denies fever, chills, hematemesis, or melena. Past medical history of COPD, prediabetes, ex-smoker. Past Medical History As stated in HPI Past Surgical History Denies Family History Reviewed, non-contributory to the management of this case. Past Social History The patient lives at home, alcohol or illicit drugs abuse. Ex-smoker Review of Systems Constitutional: Yes: Malaise; No: Fever, Chills, Sweats, Weakness, Other Eyes: No: Pain, Vision change, Conjunctivae inflammation, Eyelid inflammation, Other, Redness ENT: No: Ear pain, Ear discharge, Nose pain, Nose discharge, Nose congestion, Mouth pain, Mouth swelling, Throat pain, Throat swelling, Other Respiratory: No: Cough, Dry, Shortness of breath, SOB with excertion, Wheezing, Hemoptysis, Pleuritic Pain, Sputum, Wheezing, Other Cardiovascular: No: Chest Pain, Palpitations, Orthopnea, Paroxysmal Noc. Dyspnea, Edema, Lt Headedness, Other Gastrointestinal: Nausea, Vomiting, Abdominal Pain; No: Diarrhea, Constipation, Melena, Hematochezia, Other Genitourinary: No Dysuria, No Frequency, No Incontinence, No Hematuria, No Retention, No Other Musculoskeletal: No: other, neck pain, shoulder pain, arm pain, back pain, hand pain, leg pain, foot pain Skin: No: Rash, Lesions, Jaundice, Bruising, Other Neurological: No: Weakness, Numbness, Incoordination, Change in speech, Confusion, Seizures, Other Allergies: Coded Allergies: NO KNOWN ALLERGIES (Unverified , 04/08/14) Exam Vital Signs Vital Signs Date Time Temp Pulse Resp B/P (MAP) Pulse Ox O2 Delivery O2 Flow Rate FiO2 06/17/24 11:41 87 06/17/24 09:37 17 143/80 (101) 98 06/17/24 08:08 97.6 97.6 06/17/24 08:06 Nasal Cannula* 3 32 General Appearance: Alert, Oriented X3, Cooperative, mild distress, Other (cachexia) HEENT: Atraumatic, PERRLA, EOMI, Mucous membr. moist/pink Respiratory: Clear to auscultation, Normal air movement Cardiovascular: Regular rate, Normal S1, Normal S2 Abdominal: Normal bowel sounds, Soft, Other (Mild tenderness) Extremities: No clubbing, No cyanosis, No edema, Normal pulses Skin: No rashes, No breakdown, No significant lesion Neuro: Normal speech, Normal tone, Sensation intact Psych/Mental Status: Mental status NL Labs/Xrays Labs Test 06/17/24 08:17 06/17/24 07:42 Range/Units Sodium Level 140 136-145 mmol/L Potassium Level 4.6 3.5-5.1 mmol/L Chloride Level 104 98-107 mmol/L Carbon Dioxide Level 30 20-31 mmol/L Anion Gap 6 5-15 Blood Urea Nitrogen 18 9-23 mg/dL Creatinine 0.89 0.700-1.30 mg/dL Glomerular Filtration Rate Calc 93 >90 mL/min BUN/Creatinine Ratio 20.2 H 10.0-20.0 Serum Glucose 135 H 74-106 mg/dL Calcium Level 9.4 8.7-10.4 mg/dL White Blood Count 9.1 4.4-10.8 10^3/uL Red Blood Count 4.13 L 4.5-5.90 10^6/uL Hemoglobin 11.7 L 13.5-17.5 g/dL Hematocrit 36.4 L 41.0-53.0 % Mean Corpuscular Volume 88.1 80.0-100.0 fL Mean Corpuscular Hemoglobin 28.4 28.0-32.0 pg Mean Corpuscular Hemoglobin Concent 32.2 32.0-36.0 g/dL Red Cell Distribution Width 15.3 H 11.8-14.3 % Platelet Count 372 140-450 10^3/uL Mean Platelet Volume 7.5 6.9-10.8 fL Neutrophils (%) (Auto) 78.8 37.0-80.0 % Lymphocytes (%) (Auto) 7.8 L 10.0-50.0 % Monocytes (%) (Auto) 10.4 0.0-12.0 % Eosinophils (%) (Auto) 1.9 0.0-7.0 % Basophils (%) (Auto) 1.1 0.0-2.0 % Neutrophils # (Auto) 7.2 1.6-8.6 10 ^3/uL Lymphocytes # (Auto) 0.7 0.4-5.4 10 ^3/uL Monocytes # (Auto) 1.0 0-1.3 10 ^3/uL Eosinophils # (Auto) 0.2 0-0.8 10 ^3/uL Basophils # (Auto) 0.1 0-0.2 10 ^3/uL Nucleated Red Blood Cells 0.0 % PROCEDURE(s): ABPLIV - CT AB PEL WITH IV CON ONLY REASON: abdominal pain, brbpr ORDER NUMBER(s): [id number], ACCESSION NUMBER(s): [id number] Was adequate Procedure: CT CT AB PEL WITH IV CON ONLY 06/17/2024 09:50 AM Indication: abdominal pain, brbpr Comparison Study: None Technique: Axial images were obtained and reformatted in coronal and sagittal planes. All CT scans at this medical facility are performed using dose modulation techniques as appropriate to a performed exam including the following: Automated exposure control was utilized; adjustment of the MA and/or KV according to patient size; and use of iterative reconstruction technique. CT Dose: CTDI volume is 5.5 mGy. Dose-length product is 263.99 mGy*cm FINDINGS: Lower Chest: Unremarkable. Hepatobiliary: Unremarkable. Spleen: Unremarkable. Pancreas: Unremarkable. Adrenal Glands: Unremarkable. tract: The kidneys are normal in size bilaterally without hydronephrosis or nephrolithiasis. The urinary bladder is unremarkable. GI tract: A small sliding hiatal hernia noted. No evidence of small bowel obstruction. Circumferential mural thickening of the distal descending colon measuring 2.2 cm in length with thin single-layer thickness of 0.9 cm with resultant gas and fecal matter dilatation of the large bowel proximal to this measuring up to 10 cm in the region of the cecum. The appendix is not visualized. No inflammatory change is noted in the right lower quadrant. Prolapsed hemorrhoids noted. Lymphatics: No mesenteric, retroperitoneal or periportal lymphadenopathy. Vasculature: The abdominal aorta is normal in caliber. Diffuse calcified plaque formation is noted. Pelvic Organs: Unremarkable Bones/soft tissues: No acute abnormality. Deformity of the left proximal femur reflecting an old healed fracture. 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 Moderate bilateral hip joint osteoarthritis. Mild chronic anterior compression deformities of T11 and T12 with approximately 10% loss of height without retro pulsion. Schmorl's nodes are seen in several lumbar endplates. Other: None. IMPRESSION: 1. Short-segment circumferential mural thickening of distal descending colon measuring 0.9 cm in single layer thickness gaseous and fecal distention of the large bowel proximal to this measuring up to 10 cm in the cecum concerning for an annular. Recommend further evaluation with colonoscopy biopsy. Line herniated hemorrhoids.Small sliding hiatal hernia. 2. Small right basilar pulmonary opacities that may represent atelectasis or pneumonia/ aspiration pneumonia. Recommend clinical and biochemical correlation. 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 Procedure Category Date Status Time Admit ADMIT 06/17/24 Transmitted 13:11 Code Status CODE 06/17/24 Transmitted 13:11 Sodium Chloride 0.9% PHA 06/17/24 Logged 13:15 Hydrocodone-Acet PHA 06/17/24 Logged 5/325mg Tab ([place] 13:15 Ondansetron Hcl PHA 06/17/24 Logged (Zofran) 13:15 Fall Risk Precautions VIPUL 06/17/[address] 13:11 Complete Blood Count LAB 06/18/24 Verified 04:00 Comprehensive LAB 06/18/24 Verified Metabolic Panel 04:00 Npo (Nothing By DIET 06/17/24 Transmitted Mouth) Diet Lunch Condition: Fair VIPUL 06/17/24 In Process 13:11 Acetaminophen Tablet PHA 06/17/24 Logged (Tylenol Tablet) 13:15 Morphine Sulfate PHA 06/17/24 Logged Injection 13:15 Small Bowel Series-W XY 06/17/24 Logged Gastrogra 13:11 Albuterol Medneb PHA 06/17/24 Transmitted (Ventolin Medneb) 13:15 Albuterol Medneb PHA 06/17/24 Transmitted (Ventolin Medneb) 18:00 Ipratropium Medneb PHA 06/17/24 Transmitted (Atrovent Medneb) 13:15 Ipratropium Medneb PHA 06/17/24 Transmitted (Atrovent Medneb) 18:00 Blood Culture IMAN 06/17/24 Transmitted 13:14 Respiratory Culture IMAN 06/17/24 Transmitted W/ Gs 13:14 Date of Service: Jun 17, 2024 Billing Provider: CAN VANCE Common Visit Codes: [id number] INP/OBS CARE (HIGH) CAN VANCE Jun 17, 2024 13:30
[2024-06-17] MEDS: SODIUM CHLORIDE 0.9% 1,000 ML IV SCH (13:48)
--- NOTE | 2024-06-17 15:43 | DVHINCON2 ---
Date of service: Jun 17, 2024 Referring Physician Melony Reason for Consultation Abdominal pain Bowel obstruction History of Present Illness The patient is a 69-year-old male with a prior history of COPD, prediabetes, recently seen in the emergency room consulted for chest pain, admitted with abdo jadyn pain, nausea and vomiting. Imaging studies suggest colonic obstruction. Patient has had a prior colonoscopy 20 years ago. He is not sure about his weight loss and states that he has been a thin niurka all his life. Patient has been having rectal bleeding. He denies any fevers or chills, a no changes as underlying shortness of breath. Patient had a NG tube placement attempt but was not able to tolerate it. GI consultation was obtained for obstruction and possible colonoscopy. Patient has been having difficulty having bowel movements for quite some time. Past Medical History As above Prior history of hepatitis-C, states that he completed pills for treatment. Past Surgical History Denies Family History: Diabetes mellitus G8 MOTHER FH: Parkinson's disease Family history: Cardiovascular disease Family history: Diabetes mellitus G8 MOTHER Social History Prior tobacco use , prior drug use Allergies: Coded Allergies: NO KNOWN ALLERGIES (Unverified , 04/08/14) Home Meds Active Scripts Ipratropium [place] Hfa (Atrovent Hfa) 17 Mcg Aer, 2 PUFF INH QID for 1 Day, #12.9 GRAMS 5 Refills Prov:PARVIN MATA MD 06/14/23 Reported Medications Xuezcypskus-Syrklbrzczvh-Vowzd (Trelegy Ellipta 100-62.5-25 Mcg/INH) 1 Aer Aer, 1 AER IN, AER 05/17/24 Albuterol Sulfate (Albuterol Sulfate) 2 Mg Tab, 2 MG PO Q6HP PRN for SHORTNESS OF BREATH, MG 04/09/14 Current Medications Current Medications Medications (Trade) Dose Ordered Sig/Sheldon Route PRN Reason Start Time Stop Time Status Last Admin Sodium Chloride 1,000 ml @ 100 mls/hr Q10H IV 06/17/24 13:15 06/17/24 13:48 Acetaminophen/ Hydrocodone Bitart ([place] 5/325MG Tab) 1 tab Q4HP PRN PO MODERATE PAIN (4-6 PAIN SCALE) 06/17/24 13:15 Ondansetron HCl (Zofran) 4 mg Q4HP PRN IV NAUSEA / VOMITING 06/17/24 13:15 Acetaminophen (Tylenol Tablet) 650 mg Q6HP PRN PO PAIN SCALE 1-3 OR TEMP>100.4 06/17/24 13:15 Morphine Sulfate 2 mg Q4HPRN PRN IV SEVERE PAIN (7-10 PAIN SCALE) 06/17/24 13:15 Albuterol (Ventolin Medneb) 2.5 mg Q4HPRN PRN NEB SHORTNESS OF BREATH 06/17/24 13:15 Albuterol (Ventolin Medneb) 2.5 mg Q6HR NEB 06/17/24 18:00 Ipratropium [place] (Atrovent Medneb) 0.5 mg Q4HPRN PRN NEB SHORTNESS OF BREATH 06/17/24 13:15 Ipratropium [place] (Atrovent Medneb) 0.5 mg Q6HR NEB 06/17/24 18:00 Review of Systems Constitutional: Has had weight loss, denies fevers or chills Head: Denies headache, dizziness, visual changes or hearing loss Endocrine: Prediabetes denies hypothyroidism Cardiac: No underlying cardiac issues denies palpitations PULM: History of COPD on inhalers GI: See HPI : No dysuria or hematuria Skin: No rashes bruises or pruritus Heme: No history of malignancy or anemia Neuro: No stroke or seizure Psych: No depression anxiety or psychosis Room: No fractures, arthralgias or myalgias Vital Signs Vital Signs Date Time Temp Pulse Resp B/P (MAP) Pulse Ox O2 Delivery O2 Flow Rate FiO2 06/17/24 14:53 92 16 98 Nasal Cannula* 2 28 06/17/24 14:53 97.8 166/119 (135) 97.8 Physical Exam General: Cachectic-appearing male HEENT: NC/AT EOMI poor dentition no JVD Heart: Regular rate and rhythm Lungs: Clear to auscultation bilaterally anteriorly Abdomen: Soft distended and tender, hypoactive bowel sounds Extremity: No clubbing cyanosis or edema Neuro: Moves all four extremity Skin: Tattoos on upper extremity Labs/Diagnostic Data IMPRESSION: 1. Short-segment circumferential mural thickening of distal descending colon measuring 0.9 cm in single layer thickness gaseous and fecal distention of the large bowel proximal to this measuring up to 10 cm in the cecum concerning for an annular. Recommend further evaluation with colonoscopy biopsy. Line herniated hemorrhoids.Small sliding hiatal hernia. Labs Test 06/17/24 08:17 06/17/24 07:42 Range/Units Sodium Level 140 136-145 mmol/L Potassium Level 4.6 3.5-5.1 mmol/L Chloride Level 104 98-107 mmol/L Carbon Dioxide Level 30 20-31 mmol/L Anion Gap 6 5-15 Blood Urea Nitrogen 18 9-23 mg/dL Creatinine 0.89 0.700-1.30 mg/dL Glomerular Filtration Rate Calc 93 >90 mL/min BUN/Creatinine Ratio 20.2 H 10.0-20.0 Serum Glucose 135 H 74-106 mg/dL Calcium Level 9.4 8.7-10.4 mg/dL White Blood Count 9.1 4.4-10.8 10^3/uL Red Blood Count 4.13 L 4.5-5.90 10^6/uL Hemoglobin 11.7 L 13.5-17.5 g/dL Hematocrit 36.4 L 41.0-53.0 % Mean Corpuscular Volume 88.1 80.0-100.0 fL Mean Corpuscular Hemoglobin 28.4 28.0-32.0 pg Mean Corpuscular Hemoglobin Concent 32.2 32.0-36.0 g/dL Red Cell Distribution Width 15.3 H 11.8-14.3 % Platelet Count 372 140-450 10^3/uL Mean Platelet Volume 7.5 6.9-10.8 fL Neutrophils (%) (Auto) 78.8 37.0-80.0 % Lymphocytes (%) (Auto) 7.8 L 10.0-50.0 % Monocytes (%) (Auto) 10.4 0.0-12.0 % Eosinophils (%) (Auto) 1.9 0.0-7.0 % Basophils (%) (Auto) 1.1 0.0-2.0 % Neutrophils # (Auto) 7.2 1.6-8.6 10 ^3/uL Lymphocytes # (Auto) 0.7 0.4-5.4 10 ^3/uL Monocytes # (Auto) 1.0 0-1.3 10 ^3/uL Eosinophils # (Auto) 0.2 0-0.8 10 ^3/uL Basophils # (Auto) 0.1 0-0.2 10 ^3/uL Nucleated Red Blood Cells 0.0 % Hemoglobin A1c 5.6 <5.7 % A1C Assessment 1. Abdominal pain 2. GI bleed 3. Colonic obstruction 4. Cachexia 5. COPD 6. Nausea and vomiting Findings suspicious for malignancy versus other benign stricture in the colon. Imaging findings suspicious for malignancy. Problems(with codes): (1) COPD (chronic obstructive pulmonary disease) (2) Cachexia (3) Abdominal pain (4) Colon distention Plan/Recommendation 1. If the patient is completely obstructed then he can not prep for colonoscopy, and surgery would be the only option 2. Would recommend re-attempt to place NG tube to decompress the GI tract 3. Follow H&H 4. Surgical consultation 5. GI will be following 6. Consider colonoscopy if the patient is able to have bowel movements and tolerate a prep however does not appear that that will be the case at this time Plan discussed with: Patient BEBETO MOON MD Jun 17, 2024 15:43
[2024-06-17] MEDS: IPRATROPIUM BROM 0.5 MG/2.5ML INH SOL NEB SCH (18:55)
[2024-06-17] MEDS: ALBUTEROL SULF 2.5 MG/0.5ML(0.5%) NEB SOLN NEB SCH (18:55)
[2024-06-17 20:53] LABS: Urine Blood Negative /uL (Negative); Urine Clarity Clear (Clear); Urine Color Yellow (Yellow); Urine Mucus FEW (None Seen); Urine Protein, UAD TRACE (Negative); Urine Specific Gravity > 1.035 (1.001-1.035); Urine Squamous Epithelial Cell None Seen /hpf (<5); Urine Urobilinogen Normal (Negative); Urine WBC < 1 /HPF (0-3)
[2024-06-18] VITALS (17 sets, daily range): BP systolic 105–132; BP diastolic 45–68; PULSE 74–101; RESP 13–19; TEMP 97.4–98.8; O2SAT 93–100
[2024-06-18] MEDS ORDERED: FLUT100M IN (04:15)
[2024-06-18] MEDS ORDERED: IPRIH INH (04:16)
[2024-06-18 06:40] LABS: Basophils # (auto) 0.1 10 ^3/uL (0-0.2); Basophils % (auto) 0.7 % (0.0-2.0); Eosinophils # (auto) 0.2 10 ^3/uL (0-0.8); Eosinophils % (auto) 2.8 % (0.0-7.0); Hematocrit 32.6 % (41.0-53.0); Hemoglobin 10.6 g/dL (13.5-17.5); Lymphocytes # (auto) 1.1 10 ^3/uL (0.4-5.4); Mean Corpuscular Hemoglobin 28.6 pg (28.0-32.0); Mean Corpuscular Hgb Conc. 32.7 g/dL (32.0-36.0); Mean Corpuscular Volume 87.6 fL (80.0-100.0); Monocytes # (auto) 0.9 10 ^3/uL (0-1.3); Monocytes % (auto) 12.3 % (0.0-12.0); Neutrophils # (auto) 5.1 10 ^3/uL (1.6-8.6); Neutrophils % (auto) 69.2 % (37.0-80.0); Nucleated Red Blood Cells % 0.2 %; Platelet Count (auto) 335 10^3/uL (140-450); Red Blood Cells 3.72 10^6/uL (4.5-5.90); Red Cell Distribution Width 15.3 % (11.8-14.3); White Blood Cell 7.3 10^3/uL (4.4-10.8)
[2024-06-18 06:57] LABS: Alanine Aminotransferase 16 U/L (7-40); Albumin 3.4 g/dL (3.2-4.8); Alkaline Phosphatase 89 U/L (46-116); Anion Gap 8 (5-15); Aspartate Aminotransferase 23 U/L (13-40); BUN/Creatinine Ratio 16.4 (10.0-20.0); Blood Urea Nitrogen 10 mg/dL (9-23); Carbon Dioxide 27 mmol/L (20-31); Glucose 87 mg/dL (74-106); Potassium 4.2 mmol/L (3.5-5.1); Sodium 144 mmol/L (136-145)
[2024-06-18 06:58] LABS: Bilirubin, Total 0.4 mg/dL (0.2-1.0)
[2024-06-18 07:04] LABS: Calcium 8.7 mg/dL (8.7-10.4); Chloride 109 mmol/L (98-107); Total Protein 5.6 g/dL (5.7-8.2)
[2024-06-18] MEDS: GASTROGRAFIN 120 ML SOL ONE (11:09)
--- NOTE | 2024-06-18 13:04 | DVH ---
Procedure: XY SMALL BOWEL SERIES-W GASTROGRA Exam Date: 06/18/2024 11:41 AM Reason for study/Clinical History: RULE OUT SBO Comparison Study: None available at time of dictation. Technique: Single contrast small bowel series performed. Findings: Initial warp changer view of the abdomen and pelvis appears demonstrates no acute process. Contrast is identified within the colon by 30 minutes. This represents a normal small bowel transit time. Small bowel loops are normal in size. Normal mucosal pattern. No evidence of small bowel obstructi on, stricture, or mucosal abnormality. The terminal ileum is well visualized and is unremarkable. IMPRESSION: Normal small bowel series. END IMPRESSION:
--- NOTE | 2024-06-18 14:19 | DVHPN2 ---
Subjective 69-year-old male was admitted here for about 3-4 days of abdominal pain and constipation and rectal bleeding, he was not able to have a bowel movement so he came here with severe abdominal pain No nausea or vomiting according to him He says he is not constipated uterine He had a colonoscopy 6 years ago which he says was fine He has COPD on home O2 He had a small bowel series done on this morning and since then he had 3 bowel movements so far Changes from previous H/P or p: Changes Eyes: No Pain, No Vision change, No Conjunctivae inflammation, No Eyelid inflammation, No Other, No Redness ENT: No Ear pain, No Ear discharge, No Nose pain, No Nose discharge, No Nose congestion, No Mouth pain, No Mouth swelling, No Throat pain, No Throat swelling, No Other Cardiovascular: No Chest Pain, No Palpitations, No Orthopnea, No Paroxysmal Noc. Dyspnea, No Edema, No Lt Headedness, No Other Respiratory: No Cough, No Dry, No Shortness of breath, No SOB with excertion, No Wheezing, No Hemoptysis, No Pleuritic Pain, No Sputum, No Other Gastrointestinal: Nausea, Vomiting, Abdominal Pain; No Diarrhea, No Constipation, No Melena, No Hematochezia, No Other Genitourinary: No Dysuria, No Frequency, No Incontinence, No Hematuria, No Retention, No Other Musculoskeletal: No other, No neck pain, No shoulder pain, No arm pain, No back pain, No hand pain, No leg pain, No foot pain Skin: No Rash, No Lesions, No Jaundice, No Bruising, No Other Objective Vitals Vital Signs Date Time Temp Pulse Resp B/P (MAP) Pulse Ox O2 Delivery O2 Flow Rate FiO2 06/18/24 13:00 97.4 89 19 105/53 (70) 97 97.4 06/18/24 11:12 Nasal Cannula* 3 32 Intake/Output Intake and Output 06/18/24 07:00 Intake Total 2300 ml Balance 2300 ml Intake Oral 0 ml IV Total 2300 ml General Appearance: Alert, Oriented X3, Cooperative Lungs: Clear to auscultation, Normal air movement Cardiovascular: Regular rate, Normal S1, Normal S2 Abdomen: Normal bowel sounds, Soft, No tenderness Extremities: No edema Medications Current Medications Medications Dose Ordered Sig/Sheldon Route Start Time Stop Time Status Last Admin Dose Admin Sodium Chloride 1,000 ml @ 100 mls/hr Q10H IV 06/17/24 13:15 06/18/24 06:33 100 MLS/HR Acetaminophen/ Hydrocodone Bitart 1 tab Q4HP PRN PO 06/17/24 13:15 Ondansetron HCl 4 mg Q4HP PRN IV 06/17/24 13:15 Acetaminophen 650 mg Q6HP PRN PO 06/17/24 13:15 Morphine Sulfate 2 mg Q4HPRN PRN IV 06/17/24 13:15 Albuterol 2.5 mg Q4HPRN PRN NEB 06/17/24 13:15 Albuterol 2.5 mg Q6HR NEB 06/17/24 18:00 06/18/24 11:12 2.5 MG Ipratropium [place] 0.5 mg Q4HPRN PRN NEB 06/17/24 13:15 Ipratropium [place] 0.5 mg Q6HR NEB 06/17/24 18:00 06/18/24 11:12 0.5 MG Laboratory Results Laboratory Tests 06/18/24 06:15 Chemistry Test 06/18/24 06:15 Albumin 3.4 g/dL (3.2-4.8) Calcium Level 8.7 mg/dL (8.7-10.4) Total Protein 5.6 g/dL (5.7-8.2) L LFT Test 06/18/24 06:15 Alanine Aminotransferase (ALT) 16 U/L (7-40) Alkaline Phosphatase 89 U/L (46-116) Aspartate Amino Transferase (AST) 23 U/L (13-40) Total Bilirubin 0.4 mg/dL (0.2-1.0) Urinalysis Test 06/17/24 20:40 Urine Color Yellow (Yellow) Urine Clarity Clear (Clear) Urine pH 5.0 (5.0-9.0) Urine Specific [place] > 1.035 (1.001-1.035) Urine Protein Trace (Negative) H Urine Ketones 1+ (Negative) H Urine Blood Negative /uL (Negative) Urine Nitrite Negative (Negative) Urine Bilirubin Negative (Negative) Urine Urobilinogen Normal mg/dL (Negative) Urine Leukocyte Esterase Negative /uL (Negative) Urine RBC <1 /hpf (0 - 3) Urine Microscopic WBC < 1 /HPF (0-3) Urine Squamous Epithelial Cells None seen /hpf (<5) Urine Bacteria /hpf (None Seen) Urine Mucus Few (None Seen) Urine Glucose Normal mg/dL (Normal) Assessment/Plan Assessment/Plan Abdominal pain Possible left colon lesion on CT scan rule out colonic obstruction Rectal bleeding Cachexia COPD Chronic respiratory failure on home O2 Anemia Plan He was NPO Since the bowel series shows no obstruction, we will start clear liquids IV fluids GI consult, discussed with Dr. Yulisa Vigil over the phone, she will follow up Surgical consult IV Protonix Full code Advance directives and care plan discussed for 20 minutes Plan discussed with: Patient My Orders Orders - TERENCE NYE MD Procedure Category Date Status Time *[facility] CONS 06/18/24 Verified 14:05 Date of Service: Jun 18, 2024 Billing Provider: TERENCE NYE MD Common Visit Codes: [id number] INP/OBS CARE(HIGH) Secondary Visit Codes: [id number] CARE PLAN 30 MINUTES TERENCE NYE MD Jun 18, 2024 14:19
--- NOTE | 2024-06-18 16:52 | DVHPN2 ---
Progress Note Date Seen: Jun 18, 2024 Resident Creating Document: YUSUF HENRY RESIDENT Medical Necessity Reason Pt with a Central, PICC or Fol: No Subjective Review of Systems had bowel movements no nausea or vomiting tolerating clear liquid plan for colonoscopy tomorrow Objective vital signs Vital Sign Date Time Temp Pulse Resp B/P (MAP) Pulse Ox O2 Delivery O2 Flow Rate FiO2 06/18/24 13:00 97.4 89 19 105/53 (70) 97 97.4 06/18/24 11:12 Nasal Cannula* 3 32 Total Intake and Output 06/17/24 06/17/24 06/18/24 15:00 23:00 07:00 Intake Total 1000 ml 300 ml 1000 ml Balance 1000 ml 300 ml 1000 ml medications Current Medications Medications Dose Ordered Sig/Sheldon Route Start Time Stop Time Status Last Admin Dose Admin Sodium Chloride 1,000 ml @ 100 mls/hr Q10H IV 06/17/24 13:15 06/18/24 06:33 100 MLS/HR Acetaminophen/ Hydrocodone Bitart 1 tab Q4HP PRN PO 06/17/24 13:15 Ondansetron HCl 4 mg Q4HP PRN IV 06/17/24 13:15 Acetaminophen 650 mg Q6HP PRN PO 06/17/24 13:15 Morphine Sulfate 2 mg Q4HPRN PRN IV 06/17/24 13:15 Albuterol 2.5 mg Q4HPRN PRN NEB 06/17/24 13:15 Albuterol 2.5 mg Q6HR NEB 06/17/24 18:00 06/18/24 11:12 2.5 MG Ipratropium [place] 0.5 mg Q4HPRN PRN NEB 06/17/24 13:15 Ipratropium [place] 0.5 mg Q6HR NEB 06/17/24 18:00 06/18/24 11:12 0.5 MG Pantoprazole Sodium 40 mg DAILY IV 06/19/24 10:00 Examination General Appearance: Cooperative. Well developed. Well nourished. NAD Head Exam: Normal inspection Neck Exam: Normal inspection. Non-tender. Normal alignment Pulmonary/Respiratory: Chest non-tender. Clear bilateral breath sounds Cardiovascular/Chest: Regular rate and rhythm. No murmurs. No JVD. Peripheral Pulses: 2+ Radial (R). 2+ Radial (L). 2+ Pedal (R). 2+ Pedal (L) Abdominal Exam: Normal bowel sounds. Soft. Nontender. No hepatospenomegaly. No masses Ankle Exam: Negative ankle edema Lower extremities: Negative lower extremity edema Neuro/Mental Status: A&O x4. Coherent Thoughts/Psych: Normal thought pattern. Appropriate mood and affect. Good judgement and insight Appearance: In no acute distress Skin Exam: Normal inspection. Normal color. Warm. Dry laboratory and microbiology Laboratory Tests 06/18/24 06:15 Test 06/18/24 06:15 Range/Units Serum Glucose 87 74-106 mg/dL Microbiology Date/Time Source Procedure Growth Status 06/17/24 14:14 Blood Blood Culture - Preliminary NO GROWTH AFTER 24 HOURS OF INCUBATION. Resulted Problem List/Assessment/Plan Problem List/Assessment/Plan Abdominal pain ? Rule out malignancy Chronic obstructive pulmonary disease Ruled out bowel obstruction Cachexia Plan/recommendation Dr Vigil -plan for colonoscopy tomorrow morning, bowel preparation today. -obtain consent -NPO after midnight except bowel preparation medication. -reviewed CT abdomen pelvis: Short-segment circumferential mural thickening of distal descending colon measuring 0.9 cm in single layer thickness gaseous and fecal distention of the large bowel proximal to this measuring up to 10 cm in the cecum concerning for an annular. Recommend further evaluation with colonoscopy biopsy. Plan discussed with: Patient, Other (RN) YUSUF HENRY RESIDENT Jun 18, 2024 16:52
[2024-06-18] MEDS: HYDROcodone-ACET 5/325MG TAB PO PRN (18:34)
[2024-06-18] MEDS: GOLYTELY 4L KIT PO ONE (22:19)
[2024-06-19] VITALS (17 sets, daily range): BP systolic 111–131; BP diastolic 54–73; PULSE 69–102; RESP 16–20; TEMP 97.5–97.9; O2SAT 96–100
[2024-06-19] MEDS: GOLYTELY 4L KIT PO ONE (05:42)
[2024-06-19] MEDS: MAGNESIUM CITRATE SOLUTION 300 ML BTL PO ONE (05:43)
[2024-06-19 07:20] LABS: INR 1.13 (0.9-1.15); Partial Thromboplastin Time 35.3 SEC (24.5-34.5); Prothrombin Time 11.8 sec (9.3-11.8)
[2024-06-19 07:45] LABS: Basophils # (auto) 0.1 10 ^3/uL (0-0.2); Eosinophils # (auto) 0.2 10 ^3/uL (0-0.8); Eosinophils % (auto) 3.3 % (0.0-7.0); Hematocrit 29.8 % (41.0-53.0); Lymphocytes # (auto) 1.3 10 ^3/uL (0.4-5.4); Lymphocytes % (auto) 18.4 % (10.0-50.0); Mean Corpuscular Hemoglobin 29.2 pg (28.0-32.0); Mean Corpuscular Hgb Conc. 33.5 g/dL (32.0-36.0); Mean Corpuscular Volume 87.3 fL (80.0-100.0); Monocytes # (auto) 0.8 10 ^3/uL (0-1.3); Monocytes % (auto) 11.9 % (0.0-12.0); Neutrophils # (auto) 4.5 10 ^3/uL (1.6-8.6); Neutrophils % (auto) 65.4 % (37.0-80.0); Platelet Count (auto) 312 10^3/uL (140-450); Red Blood Cells 3.42 10^6/uL (4.5-5.90); White Blood Cell 6.9 10^3/uL (4.4-10.8)
[2024-06-19 08:24] LABS: Alanine Aminotransferase 20 U/L (7-40); Alkaline Phosphatase 77 U/L (46-116); Anion Gap 8 (5-15); Aspartate Aminotransferase 21 U/L (13-40); BUN/Creatinine Ratio 12.1 (10.0-20.0); Bilirubin, Total 0.4 mg/dL (0.2-1.0); Carbon Dioxide 29 mmol/L (20-31); Chloride 105 mmol/L (98-107); Glucose 87 mg/dL (74-106); Magnesium 1.9 mg/dL (1.6-2.6); Potassium 3.6 mmol/L (3.5-5.1); Sodium 142 mmol/L (136-145)
[2024-06-19 08:29] LABS: Albumin 3.2 g/dL (3.2-4.8); Blood Urea Nitrogen 7 mg/dL (9-23); Calcium 8.5 mg/dL (8.7-10.4); Total Protein 5.3 g/dL (5.7-8.2)
[2024-06-19] MEDS: PANTOPRAZOLE 40 MG/10 ML VIAL INJ IV SCH (09:51)
--- NOTE | 2024-06-19 11:43 | DVHPN2 ---
Subjective No new complaints He is still drinking the GoLYTELY for preparation for colonoscopy today Changes from previous H/P or p: Changes Eyes: No Pain, No Vision change, No Conjunctivae inflammation, No Eyelid inflammation, No Other, No Redness ENT: No Ear pain, No Ear discharge, No Nose pain, No Nose discharge, No Nose congestion, No Mouth pain, No Mouth swelling, No Throat pain, No Throat swelling, No Other Cardiovascular: No Chest Pain, No Palpitations, No Orthopnea, No Paroxysmal Noc. Dyspnea, No Edema, No Lt Headedness, No Other Respiratory: No Cough, No Dry, No Shortness of breath, No SOB with excertion, No Wheezing, No Hemoptysis, No Pleuritic Pain, No Sputum, No Other Gastrointestinal: Nausea, Vomiting, Abdominal Pain; No Diarrhea, No Constipation, No Melena, No Hematochezia, No Other Genitourinary: No Dysuria, No Frequency, No Incontinence, No Hematuria, No Retention, No Other Musculoskeletal: No other, No neck pain, No shoulder pain, No arm pain, No back pain, No hand pain, No leg pain, No foot pain Skin: No Rash, No Lesions, No Jaundice, No Bruising, No Other Objective Vitals Vital Signs Date Time Temp Pulse Resp B/P (MAP) Pulse Ox O2 Delivery O2 Flow Rate FiO2 06/19/24 09:00 97.9 80 18 122/54 (76) 98 97.9 06/19/24 07:15 Nasal Cannula* 3 32 Intake/Output Intake and Output 06/19/24 07:00 Intake Total 2310 ml Output Total 1000 ml Balance 1310 ml Intake Oral 1310 ml IV Total 1000 ml Output Urine Total 800 ml Stool Total 200 ml # Bowel Movements 2 General Appearance: Alert, Oriented X3, Cooperative Lungs: Clear to auscultation, Normal air movement Cardiovascular: Regular rate, Normal S1, Normal S2 Abdomen: Normal bowel sounds, Soft, No tenderness Extremities: No edema Medications Current Medications Medications Dose Ordered Sig/Sheldon Route Start Time Stop Time Status Last Admin Dose Admin Sodium Chloride 1,000 ml @ 100 mls/hr Q10H IV 06/17/24 13:15 06/18/24 06:33 100 MLS/HR Acetaminophen/ Hydrocodone Bitart 1 tab Q4HP PRN PO 06/17/24 13:15 06/18/24 18:34 1 TAB Ondansetron HCl 4 mg Q4HP PRN IV 06/17/24 13:15 Acetaminophen 650 mg Q6HP PRN PO 06/17/24 13:15 Morphine Sulfate 2 mg Q4HPRN PRN IV 06/17/24 13:15 Albuterol 2.5 mg Q4HPRN PRN NEB 06/17/24 13:15 Albuterol 2.5 mg Q6HR NEB 06/17/24 18:00 06/19/24 07:15 2.5 MG Ipratropium [place] 0.5 mg Q4HPRN PRN NEB 06/17/24 13:15 Ipratropium [place] 0.5 mg Q6HR NEB 06/17/24 18:00 06/19/24 07:14 0.5 MG Pantoprazole Sodium 40 mg DAILY IV 06/19/24 10:00 06/19/24 09:51 40 MG Laboratory Results Laboratory Tests 06/19/24 05:45 Chemistry Test 06/19/24 05:45 Albumin 3.2 g/dL (3.2-4.8) Calcium Level 8.5 mg/dL (8.7-10.4) L Magnesium Level 1.9 mg/dL (1.6-2.6) Total Protein 5.3 g/dL (5.7-8.2) L Coagulation Test 06/19/24 05:45 Prothrombin Time 11.8 sec (9.3-11.8) Prothrombin Time INR 1.13 (0.9-1.15) Activated Partial Thromboplast Time 35.3 SEC (24.5-34.5) H LFT Test 06/19/24 05:45 Alanine Aminotransferase (ALT) 20 U/L (7-40) Alkaline Phosphatase 77 U/L (46-116) Aspartate Amino Transferase (AST) 21 U/L (13-40) Total Bilirubin 0.4 mg/dL (0.2-1.0) Urinalysis Test 06/17/24 20:40 Urine Color Yellow (Yellow) Urine Clarity Clear (Clear) Urine pH 5.0 (5.0-9.0) Urine Specific [place] > 1.035 (1.001-1.035) Urine Protein Trace (Negative) H Urine Ketones 1+ (Negative) H Urine Blood Negative /uL (Negative) Urine Nitrite Negative (Negative) Urine Bilirubin Negative (Negative) Urine Urobilinogen Normal mg/dL (Negative) Urine Leukocyte Esterase Negative /uL (Negative) Urine RBC <1 /hpf (0 - 3) Urine Microscopic WBC < 1 /HPF (0-3) Urine Squamous Epithelial Cells None seen /hpf (<5) Urine Bacteria /hpf (None Seen) Urine Mucus Few (None Seen) Urine Glucose Normal mg/dL (Normal) Microbiology Microbiology Date/Time Source Procedure Growth Status 06/17/24 14:14 Blood Blood Culture - Preliminary NO GROWTH AFTER 24 HOURS OF INCUBATION. Resulted Assessment/Plan Assessment/Plan Abdominal pain Possible left colon lesion on CT scan rule out colonic obstruction Rectal bleeding Cachexia COPD Chronic respiratory failure on home O2 Anemia Plan He was NPO Since the bowel series shows no obstruction, we will start clear liquids IV fluids GI consult, discussed with Dr. Yulisa Vigil over the phone, she will follow up Surgical consult IV Protonix Full code Advance directives and care plan discussed for 20 minutes 06/19/2024: Continue the current management and plan Colonoscopy scheduled for today The patient drank only half of the GoLYTELY so far Hemoglobin is 10.0 No active bleeding Plan discussed with: Patient My Orders Orders - TERENCE NYE MD Procedure Category Date Status Time *[facility] CONS 06/18/24 Verified 14:05 Pantoprazole PHA 06/19/24 In Process (Protonix) 10:00 Date of Service: Jun 19, 2024 Billing Provider: TERENCE NYE MD Common Visit Codes: [id number] INP/OBS CARE(HIGH) TERENCE NYE MD Jun 19, 2024 11:43
[2024-06-19] MEDS ORDERED: MIDAZOLAM HCL 2MG/2ML 2ml VIAL (1mg/ml) ONE (12:27)
[2024-06-19] MEDS ORDERED: MEPERIDINE HCL (25 MG/ML) 1ML VIAL ONE (12:27)
[2024-06-19] MEDS ORDERED: ONDANSETRON HCL 4 MG/2 ML VIAL ONE (12:27)
[2024-06-19] MEDS ORDERED: PROPOFOL 10 MG/ML 20 ML IV ONE (12:27)
[2024-06-19] MEDS ORDERED: fentaNYL CITRATE 100 MCG/2 ML VL ONE ×2 (12:27→14:44)
[2024-06-19] MEDS ORDERED: SODIUM CHLORIDE LOCK 0 ML ONE (12:27)
[2024-06-19] MEDS ORDERED: LIDOCAINE 1% INJ PF 5ML AMP ONE (12:27)
[2024-06-19] MEDS ORDERED: KETAMINE 50mg/ML 1ml syringe ONE (12:27)
[2024-06-19] MEDS ORDERED: MORPHINE SULFATE INJ 2 MG/ml SYRG IV PRN (12:45)
[2024-06-19] MEDS: METOCLOPRAMIDE HCL 5MG/ml INJ 2ml VIAL IV ONE (12:45)
[2024-06-19] MEDS ORDERED: HYDROmorphone HCL 2 MG/ML VL/or syr IV PRN (12:45)
[2024-06-19] MEDS: ACCU-CHEK COMFORT CURVE STRIP VI ONE (12:45)
[2024-06-19] MEDS: KETOROLAC TROMETH 30 MG/ML 1ML VIAL IV ONE (12:45)
[2024-06-19] MEDS ORDERED: SODIUM CHLORIDE LOCK 10 ML ONE (14:43)
[2024-06-19] MEDS: fentaNYL CITRATE 100 MCG/2 ML VL ONE (15:14)
[2024-06-19] MEDS: MIDAZOLAM HCL 5 MG/ML-1ML VIAL ONE (15:14)
[2024-06-19] MEDS: diphenhdrAMINE HCL 50 MG/1 ML VL ONE (15:14)
--- NOTE | 2024-06-19 16:02 | DVHOP2 ---
Operative Report DATE OF OPERATION: 06/19/24 PROCEDURE: Colonoscopy with biopsy. PREOPERATIVE INDICATION: The patient is a 69 -year-old male undergoing colonoscopy for abdominal pain constipation and abnormal finding GI tract imaging POSTOPERATIVE DIAGNOSES: 1. Patient had a very tortuous colon and there appeared to be a partial left colonic volvulus with the proximal end near the mid to distal transverse colon and the lower end of the volvulus appeared to be in the sigmoid colon 2. There were areas of some superficial ulceration likely stercoral from fecal impaction corresponding to these areas of the distal transverse, splenic flexure and another area in the sigmoid colon from which biopsies were obtained 3. There was no descending colon mass or polyps or lesion seen and no bleeding 4. I was able to negotiate the entire colon with the pediatric colonoscope and it was otherwise grossly normal examination up to the cecum slightly limited due to poor prep PROCEDURE PERFORMED BY: Iram Vigil M.D. SCOPE: Olympus videocolonoscope. ASA CLASS: 3. PREOPERATIVE MEDICATIONS: Versed 3 mg, Fentanyl 100 mcg, Benadryl 50 mg PROCEDURE IN DETAIL: After obtaining an informed consent, the patient was placed on left lateral decubitus position. He was then sedated with the above medications. A rectal examination was performed that was normal except for a palpable hemorrhoid. The colonoscope was then passed through the anus into the rectosigmoid and through the descending, transverse, and ascending colon up to the cecum with visualization of the base of the cecum and the ileocecal valve. The colonoscope was then withdrawn. The study was limited due to poor prep however after irrigation and aspiration no gross lesions were seen. 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 I was unable to retroflex in the rectum due to sigmoid fixation Patient had trace to 1+ internal hemorrhoids with grade 1 prolapse of the hemorrhoids The patient tolerated the procedure well without difficulty. WITHDRAWAL TIME: 10 minutes QUALITY OF THE PREP: [place] Bowel Prep score: 7. COMPLICATIONS : None SPECIMENS: Biopsies of transverse and descending colon ulceration Biopsies of sigmoid ulceration DISPOSITION: Transfer back to the floor Stable PLAN: 1. Trial of clear liquid diet 2. Surgical consult to evaluate patient for suspected chronic left colonic volvulus 3. Monitor labs, pain control 4. Discussed finding with Dr. Bethea and surgical consult IRAM VIGIL MD Jun 19, 2024 16:02
--- NOTE | 2024-06-19 16:21 | DVHINCON2 ---
Date of service: Jun 19, 2024 History of Present Illness 69-year-old male with a history of COPD admitted secondary to diffuse abdominal pain associated with nausea or vomiting. Patient had a CT of the abdomen and pelvis which showed very dilated colon with narrowing near the sigmoid colon with possible stricture. Patient underwent colonoscopy today by Dr. Vigil who revealed that there was no obvious obstruction however she thinks the patient had a chronic volvulus with some ulceration of the mucosa. Past Medical History COPD. Prediabetes. Past Surgical History No recent abdominal surgeries. Family History: Diabetes mellitus G8 MOTHER FH: Parkinson's disease Family history: Cardiovascular disease Family history: Diabetes mellitus G8 MOTHER Family History Noncontributory Allergies: Coded Allergies: NO KNOWN ALLERGIES (Unverified , 04/08/14) Home Meds Active Scripts Ipratropium [place] Hfa (Atrovent Hfa) 17 Mcg Aer, 2 PUFF INH QID for 1 Day, #12.9 GRAMS 5 Refills Prov:PARVIN MATA MD 06/14/23 Reported Medications Ipratropium [place] Hfa (Atrovent Hfa) 17 Mcg Aer, 2 PUFF INH QID, #12.9 GRAMS 5 Refills 06/18/24 Fluticasone-Salmeterol (Advair Diskus 100-50 Mcg/Dose) 1 Aer Aer, 1 AER IN, AER 06/18/24 Gbnozqeyypu-Chbslzfslajb-Nnzta (Trelegy Ellipta 100-62.5-25 Mcg/INH) 1 Aer Aer, 1 AER IN, AER 05/17/24 Albuterol Sulfate (Albuterol Sulfate) 2 Mg Tab, 2 MG PO Q6HP PRN for SHORTNESS OF BREATH, MG 04/09/14 Current Medications Current Medications Medications (Trade) Dose Ordered Sig/Sheldon Route PRN Reason Start Time Stop Time Status Last Admin Pantoprazole Sodium (Protonix) 40 mg DAILY IV 06/19/24 10:00 06/19/24 09:51 Hydromorphone HCl (Dilaudid Injection) 0.25 mg Q10M PRN IV MODERATE PAIN (4-6 PAIN SCALE) 06/19/24 12:45 06/19/24 13:47 DC Morphine Sulfate 1 mg Q30M PRN IV SEVERE PAIN (7-10 PAIN SCALE) 06/19/24 12:45 06/19/24 14:46 DC Vital Signs Vital Signs Date Time Temp Pulse Resp B/P (MAP) Pulse Ox O2 Delivery O2 Flow Rate FiO2 06/19/24 15:43 Mask 6.0 100 06/19/24 15:43 99.2 69 18 145/68 (93) 100 99.2 Physical Exam GEN: Age-appropriate male in no acute distress. Alert. HEENT: Normocephalic atraumatic. Moist mucous membranes. Anicteric sclerae. CV: RRR Respiratory: Coarse breath sounds ABD: Minimal diffuse tenderness to palpation with moderate distention. CT of the abdomen and pelvis shows short-segment circumferential mural thickening in the distal descending colon measuring 0.9 cm with gaseous and fecal distention of the large bowel proximal to this. Small-bowel follow-through showed contrast in the colon in 30 minutes. Labs/Diagnostic Data Labs Test 06/19/24 05:45 06/17/24 20:40 06/17/24 07:42 Range/Units White Blood Count 6.9 4.4-10.8 10^3/uL Red Blood Count 3.42 L 4.5-5.90 10^6/uL Hemoglobin 10.0 L 13.5-17.5 g/dL Hematocrit 29.8 L 41.0-53.0 % Mean Corpuscular Volume 87.3 80.0-100.0 fL Mean Corpuscular Hemoglobin 29.2 28.0-32.0 pg Mean Corpuscular Hemoglobin Concent 33.5 32.0-36.0 g/dL Red Cell Distribution Width 15.0 H 11.8-14.3 % Platelet Count 312 140-450 10^3/uL Mean Platelet Volume 7.7 6.9-10.8 fL Neutrophils (%) (Auto) 65.4 37.0-80.0 % Lymphocytes (%) (Auto) 18.4 10.0-50.0 % Monocytes (%) (Auto) 11.9 0.0-12.0 % Eosinophils (%) (Auto) 3.3 0.0-7.0 % Basophils (%) (Auto) 1.0 0.0-2.0 % Neutrophils # (Auto) 4.5 1.6-8.6 10 ^3/uL Lymphocytes # (Auto) 1.3 0.4-5.4 10 ^3/uL Monocytes # (Auto) 0.8 0-1.3 10 ^3/uL Eosinophils # (Auto) 0.2 0-0.8 10 ^3/uL Basophils # (Auto) 0.1 0-0.2 10 ^3/uL Nucleated Red Blood Cells 0.0 % Prothrombin Time 11.8 9.3-11.8 sec Prothrombin Time INR 1.13 0.9-1.15 Activated Partial Thromboplast Time 35.3 H 24.5-34.5 SEC Sodium Level 142 136-145 mmol/L Potassium Level 3.6 3.5-5.1 mmol/L Chloride Level 105 98-107 mmol/L Carbon Dioxide Level 29 20-31 mmol/L Anion Gap 8 5-15 Blood Urea Nitrogen 7 L 9-23 mg/dL Creatinine 0.58 L 0.700-1.30 mg/dL Glomerular Filtration Rate Calc 106 >90 mL/min BUN/Creatinine Ratio 12.1 10.0-20.0 Serum Glucose 87 74-106 mg/dL Calcium Level 8.5 L 8.7-10.4 mg/dL Magnesium Level 1.9 1.6-2.6 mg/dL Total Bilirubin 0.4 0.2-1.0 mg/dL Aspartate Amino Transferase (AST) 21 13-40 U/L Alanine Aminotransferase (ALT) 20 7-40 U/L Alkaline Phosphatase 77 46-116 U/L Total Protein 5.3 L 5.7-8.2 g/dL Albumin 3.2 3.2-4.8 g/dL Urine Color Yellow Yellow Urine Clarity Clear Clear Urine pH 5.0 5.0-9.0 Urine Specific [place] > 1.035 H 1.001-1.035 Urine Protein Trace H Negative Urine Ketones 1+ H Negative Urine Blood Negative Negative /uL Urine Nitrite Negative Negative Urine Bilirubin Negative Negative Urine Urobilinogen Normal Negative mg/dL Urine Leukocyte Esterase Negative Negative /uL Urine RBC <1 0 - 3 /hpf Urine Microscopic WBC < 1 0-3 /HPF Urine Squamous Epithelial Cells None seen <5 /hpf Urine Bacteria None Seen /hpf Urine Mucus Few None Seen Urine Glucose Normal Normal mg/dL Hemoglobin A1c 5.6 <5.7 % A1C Microbiology Date/Time Source Procedure Growth Status 06/17/24 14:14 Blood Blood Culture - Preliminary NO GROWTH AFTER 48 HOURS OF INCUBATION. Resulted Assessment 1. Colonic obstruction possibly from a chronic volvulus although the initial CT did not confirm this. Plan/Recommendation 1. We will get a follow up KUB 2. We will discuss with the patient regarding possible surgery Plan discussed with: Patient TIMOTHY ISBELL MD Jun 19, 2024 16:21
[2024-06-19] MEDS: MORPHINE SULFATE INJ 2 MG/ml SYRG IV PRN (20:55)
[2024-06-20] VITALS (15 sets, daily range): BP systolic 105–124; BP diastolic 54–64; PULSE 77–93; RESP 16–19; TEMP 98.1–98.3; O2SAT 96–100
[2024-06-20 06:20] LABS: Chloride 107 mmol/L (98-107); Potassium 3.7 mmol/L (3.5-5.1); Sodium 142 mmol/L (136-145)
[2024-06-20 06:21] LABS: Anion Gap 6 (5-15); Carbon Dioxide 29 mmol/L (20-31)
[2024-06-20 06:26] LABS: Glucose 93 mg/dL (74-106)
[2024-06-20 06:27] LABS: Magnesium 2.1 mg/dL (1.6-2.6)
[2024-06-20 06:29] LABS: BUN/Creatinine Ratio 8.5 (10.0-20.0); Blood Urea Nitrogen < 5 mg/dL (9-23); Calcium 8.4 mg/dL (8.7-10.4)
[2024-06-20 06:32] LABS: Basophils # (auto) 0.1 10 ^3/uL (0-0.2); Basophils % (auto) 1.1 % (0.0-2.0); Eosinophils # (auto) 0.2 10 ^3/uL (0-0.8); Eosinophils % (auto) 2.6 % (0.0-7.0); Hematocrit 28.4 % (41.0-53.0); Hemoglobin 9.2 g/dL (13.5-17.5); Lymphocytes # (auto) 1.3 10 ^3/uL (0.4-5.4); Lymphocytes % (auto) 16.4 % (10.0-50.0); Mean Corpuscular Hemoglobin 28.7 pg (28.0-32.0); Mean Corpuscular Hgb Conc. 32.5 g/dL (32.0-36.0); Mean Corpuscular Volume 88.2 fL (80.0-100.0); Monocytes # (auto) 0.9 10 ^3/uL (0-1.3); Monocytes % (auto) 11.8 % (0.0-12.0); Neutrophils # (auto) 5.3 10 ^3/uL (1.6-8.6); Neutrophils % (auto) 68.1 % (37.0-80.0); Platelet Count (auto) 358 10^3/uL (140-450); Red Blood Cells 3.22 10^6/uL (4.5-5.90); Red Cell Distribution Width 15.4 % (11.8-14.3); White Blood Cell 7.7 10^3/uL (4.4-10.8)
--- NOTE | 2024-06-20 09:08 | DVHPN2 ---
Progress Note - Dictate Date Seen: Jun 20, 2024 Medical Necessity Reason Pt with a Central, PICC or Fol: No Subjective E: no major events o/n. no complaints. wants food. vital signs Vital Sign Date Time Temp Pulse Resp B/P (MAP) Pulse Ox O2 Delivery O2 Flow Rate FiO2 06/20/24 08:55 98.2 86 18 107/61 (76) 100 98.2 06/20/24 06:18 Nasal Cannula 3.0 06/20/24 06:18 32 Total Intake and Output 06/19/24 06/19/24 06/20/24 15:00 23:00 07:00 Intake Total 10 ml 0 ml Output Total 700 ml Balance 10 ml -700 ml 0 ml medications Current Medications Medications Dose Ordered Sig/Sheldon Route Start Time Stop Time Status Last Admin Dose Admin Sodium Chloride 1,000 ml @ 100 mls/hr Q10H IV 06/17/24 13:15 06/18/24 06:33 100 MLS/HR Acetaminophen/ Hydrocodone Bitart 1 tab Q4HP PRN PO 06/17/24 13:15 06/19/24 17:02 1 TAB Ondansetron HCl 4 mg Q4HP PRN IV 06/17/24 13:15 Acetaminophen 650 mg Q6HP PRN PO 06/17/24 13:15 Morphine Sulfate 2 mg Q4HPRN PRN IV 06/17/24 13:15 06/20/24 06:08 2 MG Albuterol 2.5 mg Q4HPRN PRN NEB 06/17/24 13:15 Albuterol 2.5 mg Q6HR NEB 06/17/24 18:00 06/20/24 06:18 2.5 MG Ipratropium [place] 0.5 mg Q4HPRN PRN NEB 06/17/24 13:15 Ipratropium [place] 0.5 mg Q6HR NEB 06/17/24 18:00 06/20/24 06:18 0.5 MG Pantoprazole Sodium 40 mg DAILY IV 06/19/24 10:00 06/19/24 09:51 40 MG objective GEN: NAD ABD: soft. min distention. very min TTP w/o guarding. laboratory and microbiology Laboratory Tests 06/20/24 05:16 Test 06/20/24 05:16 Range/Units Serum Glucose 93 74-106 mg/dL Assessment/Plan A: 1. colonic volvulus s/p colonoscopy P: 1. discussed surgery with patient and his sister who helps him make medical decisions. I've explained in detail that surgery is to prevent the colonic volvulus from happening again and without surgery, there is risk of another episode in the future. after explaining the surgery and risks, he and his sister did not want surgery at this time. will start full liquid. if he tolerates, he can be discharged from surgery POV. f/u with Dr. Yulisa Vigil for bx results. Dietary Evaluation Review Comments: 1. Recommend timely diet advancement as medically able to Regular diet as tolerated; currently on CL diet w/ plan for colonoscopy, will follow for results 2. Suggest oral nutrition supplements (Ensure Clear TID) to optimize pts nutritional status; change to Ensure Enlive TID once appropriate for diet 3. Monitor and treat GI sx Expected Outcomes/Goals: Improved nutritional status, gradual weight gain Plan discussed with: Patient TIMOTHY ISBELL MD Jun 20, 2024 09:08
--- NOTE | 2024-06-20 10:08 | DVHDS2 ---
Discharge Summary Date of Admission Jun 17, 2024 at 13:11 Date of Discharge: Jun 20, 2024 Labs/Diagnostic Data: Laboratory Results Test 06/20/24 05:16 06/19/24 05:45 06/17/24 20:40 06/17/24 07:42 White Blood Count 7.7 10^3/uL (4.4-10.8) Red Blood Count 3.22 10^6/uL (4.5-5.90) Hemoglobin 9.2 g/dL (13.5-17.5) Hematocrit 28.4 % (41.0-53.0) Mean Corpuscular Volume 88.2 fL (80.0-100.0) Mean Corpuscular Hemoglobin 28.7 pg (28.0-32.0) Mean Corpuscular Hemoglobin Concent 32.5 g/dL (32.0-36.0) Red Cell Distribution Width 15.4 % (11.8-14.3) Platelet Count 358 10^3/uL (140-450) Mean Platelet Volume 7.9 fL (6.9-10.8) Neutrophils (%) (Auto) 68.1 % (37.0-80.0) Lymphocytes (%) (Auto) 16.4 % (10.0-50.0) Monocytes (%) (Auto) 11.8 % (0.0-12.0) Eosinophils (%) (Auto) 2.6 % (0.0-7.0) Basophils (%) (Auto) 1.1 % (0.0-2.0) Neutrophils # (Auto) 5.3 10 ^3/uL (1.6-8.6) Lymphocytes # (Auto) 1.3 10 ^3/uL (0.4-5.4) Monocytes # (Auto) 0.9 10 ^3/uL (0-1.3) Eosinophils # (Auto) 0.2 10 ^3/uL (0-0.8) Basophils # (Auto) 0.1 10 ^3/uL (0-0.2) Nucleated Red Blood Cells 0.0 % Sodium Level 142 mmol/L (136-145) Potassium Level 3.7 mmol/L (3.5-5.1) Chloride Level 107 mmol/L (98-107) Carbon Dioxide Level 29 mmol/L (20-31) Anion Gap 6 (5-15) Blood Urea Nitrogen < 5 mg/dL (9-23) Creatinine 0.59 mg/dL (0.700-1.30) Glomerular Filtration Rate Calc 106 mL/min (>90) BUN/Creatinine Ratio 8.5 (10.0-20.0) Serum Glucose 93 mg/dL (74-106) Calcium Level 8.4 mg/dL (8.7-10.4) Magnesium Level 2.1 mg/dL (1.6-2.6) Prothrombin Time 11.8 sec (9.3-11.8) Prothrombin Time INR 1.13 (0.9-1.15) Activated Partial Thromboplast Time 35.3 SEC (24.5-34.5) Total Bilirubin 0.4 mg/dL (0.2-1.0) Aspartate Amino Transferase (AST) 21 U/L (13-40) Alanine Aminotransferase (ALT) 20 U/L (7-40) Alkaline Phosphatase 77 U/L (46-116) Total Protein 5.3 g/dL (5.7-8.2) Albumin 3.2 g/dL (3.2-4.8) Urine Color Yellow (Yellow) Urine Clarity Clear (Clear) Urine pH 5.0 (5.0-9.0) Urine Specific [place] > 1.035 (1.001-1.035) Urine Protein Trace (Negative) Urine Ketones 1+ (Negative) Urine Blood Negative /uL (Negative) Urine Nitrite Negative (Negative) Urine Bilirubin Negative (Negative) Urine Urobilinogen Normal mg/dL (Negative) Urine Leukocyte Esterase Negative /uL (Negative) Urine RBC <1 /hpf (0 - 3) Urine Microscopic WBC < 1 /HPF (0-3) Urine Squamous Epithelial Cells None seen /hpf (<5) Urine Bacteria /hpf (None Seen) Urine Mucus Few (None Seen) Urine Glucose Normal mg/dL (Normal) Hemoglobin A1c 5.6 % A1C (<5.7) Other Laboratory Tests 06/20/24 05:16 Brief Hx & Hospital Course: Final diagnoses: 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 No active bleeding. Surgical consult was obtained therefore and the patient had another KUB done which was normal The surgical service discussed surgical options with the patient and his sister however the patient elected not to pursue surgery at this time. He had an explanation of his condition that this might happen again but it might never happened again so the patient is okay with being discharged now for outpatient follow up. He has been staying at [facility] [place] for 3 weeks for rehab and therefore he will have to go back there and continue rehab. He uses oxygen at home Advance diet slowly as tolerated and [facility] Condition at Discharge: Stable Final Diagnosis/Problems List Abdominal pain most likely due to chronic colon volvulus Chronic respiratory failure on oxygen Rectal bleeding Cachexia COPD Anemia Discharge Disposition: [facility] Discharge Will this Physician continue t: No Discharge Statement: "Patient was advised to return to the ER or call 911 if any headaches, dizziness, shortness of breath, chest pain, abdominal pain, bleeding, fevers, or worsening of medical condition. Patient was counseled about treatment plan, medications, possible side effects, patientverbalized understanding. All questions were answered to the best of my ability. This discharge took greater then 30 minutes in planning, reviewing documentation, counseling the patient, and discussing with other team members." ASSESSMENT ASSESSMENT Assessment Date of Service: Jun 20, 2024 Billing Provider: TERENCE NYE MD Common Visit Codes: [id number] DISCH DAY >30min TERENCE NYE MD Jun 20, 2024 10:08
--- NOTE | 2024-06-20 11:23 | DVHPN2 ---
Progress Note Date Seen: Jun 20, 2024 Resident Creating Document: YUSUF HENRY RESIDENT Medical Necessity Reason Pt with a Central, PICC or Fol: No Subjective Review of Systems No new complaints. Patient was evaluated by surgeon, patient refused surgery. Status post colonoscopy. Objective vital signs Vital Sign Date Time Temp Pulse Resp B/P (MAP) Pulse Ox O2 Delivery O2 Flow Rate FiO2 06/20/24 10:00 100 Nasal Cannula* 3 32 06/20/24 08:55 98.2 86 18 107/61 (76) 98.2 Total Intake and Output 06/19/24 06/19/24 06/20/24 15:00 23:00 07:00 Intake Total 10 ml 0 ml Output Total 700 ml Balance 10 ml -700 ml 0 ml medications Current Medications Medications Dose Ordered Sig/[place] Route Start Time Stop Time Status Last Admin Dose Admin Sodium Chloride 1,000 ml @ 100 mls/hr Q10H IV 06/17/24 13:15 06/18/24 06:33 100 MLS/HR Acetaminophen/ Hydrocodone Bitart 1 tab Q4HP PRN PO 06/17/24 13:15 06/19/24 17:02 1 TAB Ondansetron HCl 4 mg Q4HP PRN IV 06/17/24 13:15 Acetaminophen 650 mg Q6HP PRN PO 06/17/24 13:15 Morphine Sulfate 2 mg Q4HPRN PRN IV 06/17/24 13:15 06/20/24 06:08 2 MG Albuterol 2.5 mg Q4HPRN PRN NEB 06/17/24 13:15 Albuterol 2.5 mg Q6HR NEB 06/17/24 18:00 06/20/24 06:18 2.5 MG Ipratropium [place] 0.5 mg Q4HPRN PRN NEB 06/17/24 13:15 Ipratropium [place] 0.5 mg Q6HR NEB 06/17/24 18:00 06/20/24 06:18 0.5 MG Pantoprazole Sodium 40 mg DAILY IV 06/19/24 10:00 06/20/24 09:58 40 MG Examination General Appearance: Cooperative. Well developed. Well nourished. NAD Head Exam: Normal inspection Neck Exam: Normal inspection. Non-tender. Normal alignment Pulmonary/Respiratory: Chest non-tender. Clear bilateral breath sounds Cardiovascular/Chest: Regular rate and rhythm. No murmurs. No JVD. Peripheral Pulses: 2+ Radial (R). 2+ Radial (L). 2+ Pedal (R). 2+ Pedal (L) Abdominal Exam: Normal bowel sounds. Soft. Nontender. No hepatospenomegaly. No masses Ankle Exam: Negative ankle edema Lower extremities: Negative lower extremity edema Neuro/Mental Status: A&O x4. Coherent Thoughts/Psych: Normal thought pattern. Appropriate mood and affect. Good judgement and insight Appearance: In no acute distress Skin Exam: Normal inspection. Normal color. Warm. Dry laboratory and microbiology Laboratory Tests 06/20/24 05:16 Test 06/20/24 05:16 Range/Units Serum Glucose 93 74-106 mg/dL Microbiology Date/Time Source Procedure Growth Status 06/17/24 14:14 Blood Blood Culture - Preliminary NO GROWTH AFTER 48 HOURS OF INCUBATION. 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 On 06/19/24 POSTOPERATIVE DIAGNOSES: 1. Patient had a very tortuous colon and there appeared to be a partial left colonic volvulus with the proximal end near the mid to distal transverse colon and the lower end of the volvulus appeared to be in the sigmoid colon 2. There were areas of some superficial ulceration likely stercoral from fecal impaction corresponding to these areas of the distal transverse, splenic flexure and another area in the sigmoid colon from which biopsies were obtained 3. There was no descending colon mass or polyps or lesion seen and no bleeding 4. I was able to negotiate the entire colon with the pediatric colonoscope and it was otherwise grossly normal examination up to the cecum slightly limited due to poor prep -reviewed CT abdomen pelvis: Short-segment circumferential mural thickening of distal descending colon measuring 0.9 cm in single layer thickness gaseous and fecal distention of the large bowel proximal to this measuring up to 10 cm in the cecum concerning for an annular. -patient was evaluated for surgery by surgeon, patient refused surgery. Patient would like to continue with conservative management. -follow up in GI clinic in outpatient setting. Plan discussed with: Patient, Other (RN) Dietary Evaluation Review Comments: 1. Recommend timely diet advancement as medically able to Regular diet as tolerated; currently on CL diet w/ plan for colonoscopy, will follow for results 2. Suggest oral nutrition supplements (Ensure Clear TID) to optimize pts nutritional status; change to Ensure Enlive TID once appropriate for diet 3. Monitor and treat GI sx Expected Outcomes/Goals: Improved nutritional status, gradual weight gain YUSUF HENRY RESIDENT Jun 20, 2024 11:23
== END 2024-06-20 20:06 | DRG 393 ==
LOC: EDBD 07:22 → EDSEX 07:22 → ER 07:22 → OVERFLOW 13:11 → CENTRAL 22:10
PROVIDERS: ADMIT Internal Medicine Geriatric Medicine; ATTEND Internal Medicine Geriatric Medicine
PROC: 0DBL8ZX Excision of Transverse Colon, Via Natural or Artificial Opening Endoscopic, Diagnostic (ICD-10-PCS; 2024-06-19)
PROC: 0DBN8ZX Excision of Sigmoid Colon, Via Natural or Artificial Opening Endoscopic, Diagnostic (ICD-10-PCS; 2024-06-19)
PROC: 0DBM8ZX Excision of Descending Colon, Via Natural or Artificial Opening Endoscopic, Diagnostic (ICD-10-PCS; principal; 2024-06-19 15:08)
DX: K63.3 Ulcer of intestine (principal); K56.2 Volvulus; J96.10 Chronic respiratory failure, unspecified whether with hypoxia or hypercapnia; K92.2 Gastrointestinal hemorrhage, unspecified; R64 Cachexia; Z68.1 Body mass index [BMI] 19.9 or less, adult; K56.41 Fecal impaction; K64.8 Other hemorrhoids; E11.65 Type 2 diabetes mellitus with hyperglycemia; J43.9 Emphysema, unspecified; B19.20 Unspecified viral hepatitis C without hepatic coma; D64.9 Anemia, unspecified; Z99.81 Dependence on supplemental oxygen; Z87.891 Personal history of nicotine dependence; Z83.3 Family history of diabetes mellitus; Z82.49 Family history of ischemic heart disease and other diseases of the circulatory system; Z82.0 Family history of epilepsy and other diseases of the nervous system; Z79.899 Other long term (current) drug therapy; J44.9 Chronic obstructive pulmonary disease, unspecified
CPT/HCPCS: 36415; 71045; 74177; 74250; 80048; 80053; 81001; 83036; 83735; 85025; 85610; 85730; 87040; 93005; 94640; 99291; G0378; J2250; J2405; J2470; J2704